=== PATIENT | male | born 1985 | race African-American/Black ===

== ENCOUNTER 2017-02-13 09:44 | Emergency (ER) | payer BC, OTHER ==
[2017-02-13 09:50] VITALS: BP 121/80; PULSE 82; TEMP 98; BMI 30.7
[2017-02-13] MEDS ORDERED: FLUORESCEIN NA 1 EA STRIP OU ONE (11:01)
[2017-02-13] MEDS ORDERED: TETRACAINE 0.5% HCL 0.6ML DROPPER.BOTTLE OU ONE (11:01)
[2017-02-13] MEDS ORDERED: TETRACAINE 0.5% OPHTH SOLN 2 ML BOTTLE ONE (11:02)
--- NOTE | 2017-02-13 11:09 | PDOC ---
History of Present Illness - General Chief Complaint: Eye Problem Stated Complaint: EYE PROBLEM Time Seen by Provider: 02/13/17 10:36 History Source: Patient Exam Limitations: No Limitations - History of Present Illness Initial Comments: 02/13/17 11:07 CHIEF COMPLAINT: Bilateral eye pain, and drainage this am. HISTORY OF PRESENT ILLNESS: Patient is a 31-year-old male with chronic dry eye, denies any other significant medical history presents with bilateral eye pain this a.m., photophobia, drainage. Patient reports has been under the care of his artificial plastic eye maker starting 2 weeks ago, was put on tobramycin ophthalmic and he thought his symptoms were resolving on Friday he saw the artificial plastic eye maker again who said he had dry eye and put him on another eyedrop over the counter for dry eye. Stated yesterday, woke up with pain, redness and drainage today. REVIEW OF SYSTEMS: GENERAL/CONSTITUTIONAL: No fever or chills. No weakness. No weight change. HEAD, EYES, EARS, NOSE AND THROAT: Blurred vision. Erythema, pain to bilateral eyes. No ear pain or discharge. No sore throat. RESPIRATORY: No cough, wheezing, or hemoptysis. SKIN : No rash or easy bruising. NEUROLOGIC: No headache, vertigo, loss of consciousness, or loss of sensation. HEMATOLOGIC/LYMPHATIC: No lymphadenopathy ALLERGIC/IMMUNOLOGIC: No hives or skin allergy. No latex allergy. PHYSICAL EXAM: GENERAL: The patient is awake, alert, and fully oriented, in no acute distress. HEAD: Normal with no signs of trauma. EYES: Pupils equal, round and reactive to light, extraocular movements intact, sclera anicteric, conjunctiva injected bilaterally, extending to limbus after fluorescein staining, no corneal abrasion noted. ENT: Ears normal, nares patent, oropharynx clear without exudates. Moist mucous membranes. NECK: Normal range of motion, supple without lymphadenopathy, JVD, or masses. LUNGS: Breath sounds equal, clear to auscultation bilaterally. No wheezes, and no crackles. NEUROLOGICAL: Cranial nerves II through XII grossly intact. Normal speech, normal gait. SKIN: No erythema no facial edema. Warm, Dry, normal turgor, no rashes or lesions noted. 02/13/17 11:44 Past History - Past Medical History Allergies/Adverse Reactions: Allergies Allergy/AdvReac Type Severity Reaction Status Date / Time shrimp Allergy Uncoded 02/13/17 09:46 Home Medications: Ambulatory Orders Olopatadine HCl [Pataday] 1 drop OU DAILY #1 drops 02/13/17 COPD: No - Suicide/Smoking/Psychosocial Hx Smoking History: Never smoked Have you smoked in the past 12 months: No Information on smoking cessation initiated: No Hx Alcohol Use: Yes (occasionally) Drug/Substance Use Hx: No Substance Use Type: Alcohol *Physical Exam - Vital Signs Last Vital Signs Temp Pulse Resp BP Pulse Ox 98.0 F 82 18 121/80 100 02/13/17 09:47 02/13/17 09:47 02/13/17 09:47 02/13/17 09:47 02/13/17 09:47 Medical Decision Making - Medical Decision Making 02/13/17 11:45 A/P: Patient with erythema, pain to bilateral eyes mostly clear to, allergic reaction to eye drops that was prescribed on Friday. Patient with no evidence of injury to eye, no corneal abrasion. I have attempted to call patient's artificial plastic eye maker, no return call back, I will discharge patient on strict follow-up with ophthalmology tomorrow. *DC/Admit/Observation/Transfer Diagnosis at time of Disposition: Allergic eye reaction - Discharge Dispostion Disposition: HOME Condition at time of disposition: Good Admit: No - Prescriptions Prescriptions: Olopatadine HCl [Pataday] 1 drop OU DAILY #1 drops - Referrals Referrals: Kenny Sarabia MD [Staff Physician] - - Patient Instructions Printed Discharge Instructions: Conjunctivitis Additional Instructions: * Refrain from touching or scratching eye * Please wash hands frequently * Please followup with his primary care doctor in 2 days if symptoms persist * Medication as prescribed * Warm compresses to eye * If increased redness, swelling, pain to the eye please follow up with primary care doctor immediately or return to emergency room - Post Discharge Activity Forms/Work/School Notes: Back to Work
== END 2017-02-13 11:54 | disposition home or self-care (01) ==
LOC: JERFT 09:44
DX: T78.40XA Allergy, unspecified, initial encounter (principal); X58.XXXA Exposure to other specified factors, initial encounter
CPT/HCPCS: 99281-25

== ENCOUNTER 2017-02-13 18:38 | Emergency (ER) | payer BC ==
--- NOTE | 2017-02-13 18:44 | PDOC ---
Rapid Medical Evaluation Time Seen by Provider: 02/13/17 18:39 Medical Evaluation: Allergies Allergy/AdvReac Type Severity Reaction Status Date / Time shrimp Allergy Uncoded 02/13/17 09:46 02/13/17 18:39 The patient presents with a chief complaint of: R and L eye pain. States he was here this morning and only the R eye hurt. Now the L eye hurts as well and he cannot open either eye. States he was unable to get the medication prescribed. I have performed a brief in-person evaluation of this patient; Pertinent physical exam findings Conjunctivitis eyes b/l I have ordered the following: Nothing The patient will proceed to the ED for further evaluation.
[2017-02-13 18:46] VITALS: BP 139/97; PULSE 96; TEMP 98; BMI 30.7
--- NOTE | 2017-02-13 19:26 | PDOC ---
History of Present Illness - General Chief Complaint: Eye Problem Stated Complaint: EYE PAIN Time Seen by Provider: 02/13/17 18:39 History Source: Patient - History of Present Illness Initial Comments: 02/13/17 19:20 31 year old male seen in the ED earlier today diagnosed with allergic conjunctivitis return to the ED for worsening redness as patient is unable to obtain medication prescribed in the pharmacy Past History - Past Medical History Allergies/Adverse Reactions: Allergies Allergy/AdvReac Type Severity Reaction Status Date / Time shrimp Allergy Uncoded 02/13/17 09:46 Home Medications: Ambulatory Orders Olopatadine HCl [Pataday] 1 drop OU DAILY #1 drops 02/13/17 Olopatadine HCl [Patanol] 5 ml OP BID #1 bottle 02/13/17 COPD: No - Suicide/Smoking/Psychosocial Hx Smoking History: Never smoked Have you smoked in the past 12 months: No Information on smoking cessation initiated: No Hx Alcohol Use: Yes (occasionally) Drug/Substance Use Hx: No Substance Use Type: Alcohol *Physical Exam - Vital Signs Last Vital Signs Temp Pulse Resp BP Pulse Ox 98.0 F 96 H 18 139/97 100 02/13/17 18:40 02/13/17 18:40 02/13/17 18:40 02/13/17 18:40 02/13/17 18:40 *DC/Admit/Observation/Transfer Diagnosis at time of Disposition: Allergic eye reaction - Discharge Dispostion Disposition: HOME - Prescriptions Prescriptions: Olopatadine HCl [Pataday] 1 drop OU DAILY #1 drops Olopatadine HCl [Patanol] 5 ml OP BID #1 bottle - Referrals - Patient Instructions Printed Discharge Instructions: DI for Eye Allergic Reaction Additional Instructions: follow up with your eye doctor take eye drops as prescribed. - Post Discharge Activity
== END 2017-02-13 19:46 | disposition home or self-care (01) ==
LOC: JERFT 18:38
DX: T78.49XA Other allergy, initial encounter (principal)
CPT/HCPCS: 99281-25

== ENCOUNTER 2021-07-15 19:00 | Emergency (ER) | payer BC ==
[2021-07-15 19:37] VITALS: BMI 30.9
[2021-07-15] MEDS ORDERED: amLODIPine BESYLATE 10 MG TABLET (FP) PO ONE (21:57)
[2021-07-15] MEDS ORDERED: amLODIPine BESYLATE 10 MG TABLET (FP) ONE (22:00)
[2021-07-16 01:11] VITALS: BP 162/100; PULSE 95; TEMP 98.1
== END 2021-07-16 01:11 | disposition home or self-care (01) ==
LOC: JER 19:00
DX: I10 Essential (primary) hypertension (principal)
CPT/HCPCS: 93005; 93010; 99284-25

== ENCOUNTER 2021-11-01 14:05 | Inpatient (IN) | payer BC ==
[2021-11-01 14:17] VITALS: BMI 30.7
[2021-11-01] MEDS ORDERED: MAG HYDROX/AL HYDROX/SIMETH 30 ML UNIT-DOSE CUP PO ONE (15:05)
[2021-11-01] MEDS ORDERED: FAMOTIDINE 20 MG/50 ML IVPB 20 MG/50 ML MG IVPB ONE ×2 (15:05→15:58)
[2021-11-01] MEDS ORDERED: ONDANSETRON 4 MG/2 ML VIAL IVPUSH ONE (15:05)
[2021-11-01] MEDS ORDERED: ACETAMINOPHEN 1000 MG/100 ML BAG IVPB ONE (15:05)
[2021-11-01] MEDS ORDERED: SODIUM CHLORIDE 1,000 ML IV STA (15:05)
[2021-11-01] MEDS ORDERED: MAG HYDROX/AL HYDROX/SIMETH 30 ML UNIT-DOSE CUP ONE ×2 (15:51→17:14)
[2021-11-01] MEDS ORDERED: ACETAMINOPHEN INJECTION 100 ML IVPB ONE (15:58)
[2021-11-01] MEDS ORDERED: ONDANSETRON 4 MG/2 ML VIAL ONE (15:58)
[2021-11-01 16:12] LABS: EPI CELLS 6 /uL (0-25.1); HYALINE CASTS 2 /uL (0-3.1); PH,URINE 5.5 (5.0-8.0); URINE APPEARANCE CLEAR; URINE BACTERIA 6 /uL (0-1359); URINE BILIRUBIN NEGATIVE (NEGATIVE); URINE COLOR DK YELLOW; URINE GLUCOSE (UA) NEGATIVE (NEGATIVE); URINE KETONE 2+ (NEGATIVE); URINE LEUK ESTERASE NEGATIVE (NEGATIVE); URINE NITRITE NEGATIVE (NEGATIVE); URINE PROTEIN 1+ (NEGATIVE); URINE UROBILINOGEN 0.2 mg/dL (0.2-1.0); URINE WBC 5 /uL (0-25.8)
[2021-11-01 16:13] LABS: BASO % 0.3 % (0-2.0); EOS % 0.3 % (0-4.5); HEMATOCRIT 42.6 % (35.4-49); HEMOGLOBIN 14.7 GM/dL (11.7-16.9); LYMPH % 23.3 % (8-40); MCH 33.2 pg (25.7-33.7); MCHC 34.6 g/dl (32.0-35.9); MEAN CELL VOLUME 95.7 fl (80-96); MEAN PLT VOLUME 8.8 fl (7.5-11.1); MONO % 10.1 % (3.8-10.2); PLATELET COUNT 296 10^3/uL (134-434); RBC 4.45 M/mm3 (4.00-5.60); RDW 14.3 % (11.9-15.9); WHITE BLOOD COUNT 6.8 K/mm3 (4.0-10.0)
[2021-11-01 16:29] LABS: CALCIUM 9.6 mg/dL (8.5-10.1)
[2021-11-01 16:30] LABS: ALBUMIN 4.2 g/dl (3.4-5.0); BLOOD UREA NITROGEN 10.8 mg/dL (7-18)
[2021-11-01 16:34] LABS: URINE RBC 33.6 /uL (0-23.9)
[2021-11-01 16:34] LABS: TOT PROT 8.5 g/dl (6.4-8.2)
[2021-11-01 16:35] LABS: INR 1.09 (0.83-1.09); PROTHROMBIN TIME (PATIENT) 12.5 SEC (9.7-13.0)
[2021-11-01 16:35] LABS: BILIRUBIN,TOTAL 0.9 mg/dL (0.2-1)
[2021-11-01] MEDS ORDERED: morphine CARPU-JECT 4 MG/1 ML DISP.SYRIN IVPUSH ONE (21:15)
[2021-11-01] MEDS ORDERED: LACTATED RINGERS SOLUTION 1000 ML INFUS.BAG IV ONE (21:15)
[2021-11-01] MEDS ORDERED: morphine SULFATE 4 MG/ML VIAL ONE (21:26)
[2021-11-01] MEDS ORDERED: ONDANSETRON 4 MG/2 ML VIAL IVPUSH PRN (23:24)
[2021-11-02] MEDS ORDERED: LABETALOL HCL 5 MG/1 ML (100MG/20 ML VIAL) IVPUSH ONE ×2 (00:11→01:03)
[2021-11-02] MEDS ORDERED: LABETALOL HCL 5 MG/1 ML (100MG/20 ML VIAL) ONE (00:18)
[2021-11-02] MEDS ORDERED: ACETAMINOPHEN 1000 MG/100 ML BAG IVPB PRN (00:21)
[2021-11-02 00:28] LABS: METHADONE, UR NEGATIVE (NEGATIVE); PHENCYCLIDINE,URINE NEGATIVE (NEGATIVE); URINE BARBITURATES NEGATIVE (NEGATIVE); URINE BENZODIAZEPINES NEGATIVE (NEGATIVE)
[2021-11-02 00:29] LABS: COCAINE, UR NEGATIVE (NEGATIVE)
[2021-11-02 00:43] LABS: OPIATES, URI POSITIVE (NEGATIVE); URINE AMPHETAMINES NEGATIVE (NEGATIVE)
[2021-11-02] MEDS: LACTATED RINGERS SOLUTION 1,000 ML/1,000 ML INFUS.BAG IV SCH (01:54)
[2021-11-02] MEDS ORDERED: morphine SULFATE 4 MG/ML VIAL IVPUSH PRN (02:00)
[2021-11-02] MEDS ORDERED: hydrALAZINE HCL 20 MG/ML VIAL IVPUSH ONE ×2 (02:27→23:14)
[2021-11-02] MEDS ORDERED: hydrALAZINE HCL 20 MG/ML VIAL ONE (02:30)
[2021-11-02 07:30] LABS: BASO % 0.4 % (0-2.0); EOS % 0.3 % (0-4.5); HEMATOCRIT 38.1 % (35.4-49); HEMOGLOBIN 13.3 GM/dL (11.7-16.9); LYMPH % 19.8 % (8-40); MCH 33.1 pg (25.7-33.7); MCHC 34.9 g/dl (32.0-35.9); MEAN PLT VOLUME 9.2 fl (7.5-11.1); MONO % 8.7 % (3.8-10.2); NEUT % 70.8 % (42.8-82.8); PLATELET COUNT 286 10^3/uL (134-434); RBC 4.02 M/mm3 (4.00-5.60); RDW 14.1 % (11.9-15.9); WHITE BLOOD COUNT 7.6 K/mm3 (4.0-10.0)
[2021-11-02 08:24] LABS: CALCIUM 9.2 mg/dL (8.5-10.1)
[2021-11-02 08:25] LABS: ALBUMIN 3.4 g/dl (3.4-5.0); BLOOD UREA NITROGEN 5.2 mg/dL (7-18)
[2021-11-02 08:28] LABS: CREATININE 0.7 mg/dL (0.55-1.3)
[2021-11-02 08:29] LABS: TOT PROT 7.2 g/dl (6.4-8.2)
[2021-11-02 08:30] LABS: BILIRUBIN,TOTAL 1.8 mg/dL (0.2-1)
[2021-11-02] MEDS: HEPARIN NA (PORCINE) 5,000 UNITS/ML 1ML VIAL SQ SCH ×2 (09:08→22:32)
[2021-11-02] MEDS: amLODIPine BESYLATE 10 MG TABLET (FP) PO SCH (09:09)
[2021-11-03] MEDS: LACTATED RINGERS SOLUTION 1,000 ML/1,000 ML INFUS.BAG IV SCH (01:00)
[2021-11-03 07:31] LABS: BASO % 0.2 % (0-2.0); EOS % 1.3 % (0-4.5); HEMATOCRIT 37.1 % (35.4-49); LYMPH % 37.4 % (8-40); MCH 33.4 pg (25.7-33.7); MCHC 35.1 g/dl (32.0-35.9); MEAN CELL VOLUME 95.2 fl (80-96); MONO % 13.1 % (3.8-10.2); PLATELET COUNT 274 10^3/uL (134-434); RDW 14.3 % (11.9-15.9); WHITE BLOOD COUNT 4.3 K/mm3 (4.0-10.0)
[2021-11-03 07:44] LABS: CHLORIDE 103 mmol/L (98-107); SODIUM 140 mmol/L (136-145)
[2021-11-03 07:51] LABS: ALBUMIN 2.9 g/dl (3.4-5.0); ANION GAP 8 MMOL/L (8-16); CALCIUM 9.2 mg/dL (8.5-10.1); CO2 30 mmol/L (21-32); GLUCOSE,RANDOM 114 mg/dL (74-106); LIPASE 891 U/L (73-393)
[2021-11-03 07:54] LABS: ALK PHOS 64 U/L (45-117); CREATININE 0.7 mg/dL (0.55-1.3); SGOT/AST 72 U/L (15-37); SGPT/ALT 51 U/L (13-61)
[2021-11-03 07:56] LABS: TOT PROT 6.4 g/dl (6.4-8.2)
[2021-11-03 07:58] LABS: BLOOD UREA NITROGEN 2.8 mg/dL (7-18)
[2021-11-03] MEDS: HEPARIN NA (PORCINE) 5,000 UNITS/ML 1ML VIAL SQ SCH ×2 (09:43→21:21)
[2021-11-03] MEDS: METOPROLOL TARTRATE 25 MG TABLET (FP) PO SCH ×2 (09:43→21:21)
[2021-11-03] MEDS: amLODIPine BESYLATE 10 MG TABLET (FP) PO SCH (09:43)
[2021-11-03] MEDS: morphine SULFATE 4 MG/ML VIAL IVPUSH PRN (11:27)
[2021-11-04] MEDS: morphine SULFATE 4 MG/ML VIAL IVPUSH PRN (01:24)
[2021-11-04] MEDS: LACTATED RINGERS SOLUTION 1,000 ML/1,000 ML INFUS.BAG IV SCH ×3 (01:24→15:28)
[2021-11-04] MEDS: HEPARIN NA (PORCINE) 5,000 UNITS/ML 1ML VIAL SQ SCH ×2 (09:19→21:04)
[2021-11-04] MEDS: METOPROLOL TARTRATE 50 MG TABLET (FP) PO SCH ×2 (09:20→21:04)
[2021-11-04] MEDS: amLODIPine BESYLATE 10 MG TABLET (FP) PO SCH (09:20)
[2021-11-05] MEDS: amLODIPine BESYLATE 10 MG TABLET (FP) PO SCH (09:33)
[2021-11-05] MEDS: METOPROLOL TARTRATE 50 MG TABLET (FP) PO SCH ×2 (09:33→21:12)
[2021-11-05] MEDS: HEPARIN NA (PORCINE) 5,000 UNITS/ML 1ML VIAL SQ SCH ×2 (09:34→21:12)
[2021-11-06 08:23] LABS: BASO % 0.5 % (0-2.0); EOS % 1.6 % (0-4.5); HEMATOCRIT 37.9 % (35.4-49); HEMOGLOBIN 12.9 GM/dL (11.7-16.9); LYMPH % 36.9 % (8-40); MCH 32.4 pg (25.7-33.7); MCHC 34.2 g/dl (32.0-35.9); MEAN CELL VOLUME 94.8 fl (80-96); MEAN PLT VOLUME 9.2 fl (7.5-11.1); MONO % 9.4 % (3.8-10.2); NEUT % 51.6 % (42.8-82.8); PLATELET COUNT 353 10^3/uL (134-434); RBC 3.99 M/mm3 (4.00-5.60); RDW 13.7 % (11.9-15.9); WHITE BLOOD COUNT 4.2 K/mm3 (4.0-10.0)
[2021-11-06 08:33] LABS: CALCIUM 9.3 mg/dL (8.5-10.1)
[2021-11-06 08:34] LABS: ALBUMIN 3.2 g/dl (3.4-5.0)
[2021-11-06 08:37] LABS: CREATININE 0.9 mg/dL (0.55-1.3)
[2021-11-06 08:38] LABS: BILIRUBIN,TOTAL 0.7 mg/dL (0.2-1); TOT PROT 7.2 g/dl (6.4-8.2)
[2021-11-06] MEDS: amLODIPine BESYLATE 10 MG TABLET (FP) PO SCH (09:27)
[2021-11-06] MEDS: HEPARIN NA (PORCINE) 5,000 UNITS/ML 1ML VIAL SQ SCH ×2 (09:27→21:56)
[2021-11-06] MEDS: METOPROLOL TARTRATE 50 MG TABLET (FP) PO SCH ×2 (09:27→21:56)
[2021-11-06] MEDS: HYDROCHLOROTHIAZIDE 25 MG TABLET (FP) PO SCH (11:11)
[2021-11-06 22:52] VITALS: TEMP 98.1
[2021-11-07 06:06] VITALS: RESP 20
[2021-11-07 07:13] LABS: ALBUMIN 3.3 g/dl (3.4-5.0); BLOOD UREA NITROGEN 10.5 mg/dL (7-18); CALCIUM 9.9 mg/dL (8.5-10.1)
[2021-11-07 07:15] LABS: ALBUMIN 3.3 g/dl (3.4-5.0)
[2021-11-07 07:17] LABS: BILIRUBIN,TOTAL 0.7 mg/dL (0.2-1); TOT PROT 7.1 g/dl (6.4-8.2)
[2021-11-07 07:20] LABS: BILIRUBIN,TOTAL 0.7 mg/dL (0.2-1)
[2021-11-07 07:42] LABS: BILIRUBIN,DIRECT 0.3 mg/dL (0.0-0.2)
[2021-11-07] MEDS ORDERED: NIFEdipine E.R. 90 MG TABLET PO SCH (10:30)
[2021-11-07] MEDS: amLODIPine BESYLATE 10 MG TABLET (FP) PO SCH (11:20)
[2021-11-07] MEDS: METOPROLOL TARTRATE 50 MG TABLET (FP) PO SCH (11:25)
[2021-11-07] MEDS: HEPARIN NA (PORCINE) 5,000 UNITS/ML 1ML VIAL SQ SCH (11:25)
[2021-11-07] MEDS: HYDROCHLOROTHIAZIDE 25 MG TABLET (FP) PO SCH (11:25)
[2021-11-07 14:17] VITALS: BP 124/83; PULSE 70
[2021-11-08 19:06] LABS: GLIADIN ANTIBODY IGA 5 units (0-19); GLIADIN ANTIBODY IGG 2 units (0-19); TRANSGLUTAMINASE IGG < 2 U/mL (0-5)
== END 2021-11-07 18:55 | disposition home or self-care (01) | DRG 439 ==
LOC: JER 14:05 → JERBED 22:49 → J2W 11-02 01:46
PROVIDERS: ADMIT Internal Medicine; ATTEND Internal Medicine
DX: K85.20 Alcohol induced acute pancreatitis without necrosis or infection (principal); I16.1 Hypertensive emergency; E66.9 Obesity, unspecified; Z68.30 Body mass index [BMI] 30.0-30.9, adult; K76.0 Fatty (change of) liver, not elsewhere classified; R63.4 Abnormal weight loss; Z91.14 Patient's other noncompliance with medication regimen
CPT/HCPCS: 36415; 71046-TC-FY; 74177-TC; 74182-TC; 76705-TC; 80053; 80076; 80307; 81003; 82150; 82465; 82728; 82784; 83516; 83540; 83550; 83690; 84478; 85025; 85610; 86038; 86140; 86301; 86705; 86708; 86803; 87086; 87340; 87491; 87517; 87591; 93005; 93010; 93306-TC; 99285-25; A9579; C9803-CS; J1644; U0003; U0005

== ENCOUNTER 2022-02-10 02:30 | Inpatient (IN) | payer BC ==
[2022-02-10 02:41] VITALS: BMI 29.3
[2022-02-10] MEDS ORDERED: SODIUM CHLORIDE 0.9% 500 ML INFUS.BAG IV ONE (03:09)
[2022-02-10] MEDS ORDERED: chlordiazePOXIDE HCL 25 MG CAPSULE PO ONE (03:09)
[2022-02-10] MEDS ORDERED: ONDANSETRON 4 MG/2 ML VIAL IVPUSH ONE (03:10)
[2022-02-10] MEDS ORDERED: MAG HYDROX/AL HYDROX/SIMETH -MYLANTA- ORAL SUSPENSION PO ONE (03:10)
[2022-02-10] MEDS ORDERED: FAMOTIDINE 20 MG/50 ML IVPB 20 MG/50 ML MG IVPB ONE ×2 (03:10→03:21)
[2022-02-10] MEDS ORDERED: SUCRALFATE 1 GM TABLET (FP) PO ONE (03:10)
[2022-02-10] MEDS ORDERED: MAG HYDROX/AL HYDROX/SIMETH 30 ML UNIT-DOSE CUP ONE ×2 (03:20→07:36)
[2022-02-10] MEDS ORDERED: ONDANSETRON 4 MG/2 ML VIAL ONE ×2 (03:21→07:37)
[2022-02-10] MEDS ORDERED: SUCRALFATE 1 GM TABLET (FP) ONE (03:23)
[2022-02-10] MEDS ORDERED: chlordiazePOXIDE HCL 25 MG CAPSULE ONE (03:23)
[2022-02-10 03:40] LABS: INR 0.96 (0.83-1.09)
[2022-02-10 03:43] LABS: ACTIVATED PTT 33.4 SECONDS (25.2-36.5)
[2022-02-10 03:54] LABS: ALBUMIN 4.5 g/dl (3.4-5.0); BLOOD UREA NITROGEN 11.3 mg/dL (7-18); CALCIUM 10.3 mg/dL (8.5-10.1)
[2022-02-10 03:58] LABS: BILIRUBIN,TOTAL 1.1 mg/dL (0.2-1); TOT PROT 8.6 g/dl (6.4-8.2)
[2022-02-10] MEDS ORDERED: THIAMINE HCL 200 MG/2 ML VIAL IVPB ONE (04:10)
[2022-02-10] MEDS ORDERED: LACTATED RINGERS SOLUTION 1000 ML INFUS.BAG IV ONE (04:14)
[2022-02-10] MEDS ORDERED: THIAMINE HCL 200 MG/2 ML VIAL ONE (04:34)
[2022-02-10 04:50] LABS: VENOUS BASE EXCESS -5.6 mmol/L (-2-2); VENOUS O2 SATURATION 56.4 % (70-80); VENOUS PCO2 37.4 mmHg (38-52); VENOUS PH 7.336 (7.310-7.410)
[2022-02-10 05:01] LABS: BASO % 0.2 % (0-2.0); EOS % 0.1 % (0-4.5); HEMATOCRIT 42.4 % (35.4-49); HEMOGLOBIN 14.3 GM/dL (11.7-16.9); LYMPH % 35.4 % (8-40); MCH 31.6 pg (25.7-33.7); MCHC 33.8 g/dl (32.0-35.9); MEAN CELL VOLUME 93.5 fl (80-96); MEAN PLT VOLUME 10.5 fl (7.5-11.1); MONO % 6.3 % (3.8-10.2); PLATELET COUNT 201 10^3/uL (134-434); RBC 4.53 M/mm3 (4.00-5.60); RDW 15.3 % (11.9-15.9)
[2022-02-10] MEDS ORDERED: DOCUSATE SODIUM 100 MG CAPSULE (FP) PO PRN (06:32)
[2022-02-10] MEDS ORDERED: MAG HYDROX/AL HYDROX/SIMETH 30 ML UNIT-DOSE CUP PO PRN (06:42)
[2022-02-10] MEDS: SODIUM CHLORIDE 1,000 ML IV SCH (06:44)
[2022-02-10] MEDS ORDERED: ONDANSETRON 4 MG/2 ML VIAL IVPUSH PRN (06:47)
[2022-02-10 07:07] LABS: MAGNESIUM 1.7 mg/dL (1.8-2.4)
[2022-02-10 07:11] LABS: PHOSPHOROUS 3.3 mg/dL (2.5-4.9)
[2022-02-10] MEDS ORDERED: THIAMINE HCL 100 MG TABLET (FP) ONE (09:27)
[2022-02-10] MEDS ORDERED: FOLIC ACID 1 MG TABLET (FP) ONE (09:27)
[2022-02-10] MEDS ORDERED: MULTIVITAMINS (DAILY MVI) TABLET (FP) ONE (09:28)
[2022-02-10] MEDS: FOLIC ACID 1 MG TABLET (FP) PO SCH (09:31)
[2022-02-10] MEDS: MULTIVITAMINS (DAILY MVI) TABLET (FP) PO SCH (09:32)
[2022-02-10] MEDS: THIAMINE HCL 100 MG TABLET (FP) PO SCH (09:32)
[2022-02-10] MEDS ORDERED: FOLIC ACID INJECTION - 1 MG, THIAMINE HCL 100 MG, MULTIVIT INJECTION ADULT 10 ML in SOD... IVPB ONE (09:37)
[2022-02-10] MEDS ORDERED: METOPROLOL TARTRATE 50 MG TABLET (FP) ONE (09:47)
[2022-02-10] MEDS ORDERED: NIFEdipine E.R. 30 MG TABLET ONE (09:47)
[2022-02-10] MEDS ORDERED: NIFEdipine E.R 60 MG TABLET ONE (09:48)
[2022-02-10] MEDS: NIFEdipine E.R. 90 MG TABLET PO SCH (09:49)
[2022-02-10] MEDS: METOPROLOL TARTRATE 50 MG TABLET (FP) PO SCH ×2 (09:49→22:05)
[2022-02-10] MEDS ORDERED: LORazepam 1 MG TABLET ONE (10:32)
[2022-02-10] MEDS: LORazepam 1 MG TABLET PO SCH ×3 (10:34→23:00)
[2022-02-10] MEDS: HEPARIN NA (PORCINE) 5,000 UNITS/ML 1ML VIAL SQ SCH ×2 (14:18→22:05)
[2022-02-10] MEDS: LORazepam 1 MG TABLET PO PRN (14:18)
[2022-02-11] MEDS: LORazepam 1 MG TABLET PO PRN ×3 (03:43→20:00)
[2022-02-11] MEDS: LORazepam 1 MG TABLET PO SCH ×4 (05:05→22:29)
[2022-02-11] MEDS: HEPARIN NA (PORCINE) 5,000 UNITS/ML 1ML VIAL SQ SCH ×3 (06:04→22:27)
[2022-02-11] MEDS: METOPROLOL TARTRATE 50 MG TABLET (FP) PO SCH ×2 (09:43→22:27)
[2022-02-11] MEDS: THIAMINE HCL 100 MG TABLET (FP) PO SCH (09:43)
[2022-02-11] MEDS: MULTIVITAMINS (DAILY MVI) TABLET (FP) PO SCH (09:43)
[2022-02-11] MEDS: NIFEdipine E.R. 90 MG TABLET PO SCH (09:43)
[2022-02-11] MEDS: SODIUM CHLORIDE 1,000 ML IV SCH (09:44)
[2022-02-11] MEDS: FOLIC ACID 1 MG TABLET (FP) PO SCH (09:49)
[2022-02-11 10:01] LABS: BASO % 0.2 % (0-2.0); EOS % 0.4 % (0-4.5); HEMATOCRIT 39.8 % (35.4-49); HEMOGLOBIN 13.5 GM/dL (11.7-16.9); LYMPH % 16.1 % (8-40); MCH 31.7 pg (25.7-33.7); MCHC 33.9 g/dl (32.0-35.9); MEAN CELL VOLUME 93.4 fl (80-96); MONO % 6.5 % (3.8-10.2); NEUT % 76.8 % (42.8-82.8); PLATELET COUNT 182 10^3/uL (134-434); RBC 4.26 M/mm3 (4.00-5.60); RDW 15.2 % (11.9-15.9); WHITE BLOOD COUNT 6.2 K/mm3 (4.0-10.0)
[2022-02-11 10:44] LABS: CALCIUM 9.9 mg/dL (8.5-10.1)
[2022-02-11 10:45] LABS: BLOOD UREA NITROGEN 3.6 mg/dL (7-18)
[2022-02-11 10:47] LABS: CREATININE 0.9 mg/dL (0.55-1.3)
[2022-02-11 10:50] LABS: TOT PROT 7.8 g/dl (6.4-8.2)
[2022-02-11] MEDS ORDERED: SODIUM CHLORIDE 1,000 ML IV SCH (14:45)
[2022-02-12] MEDS: LORazepam 1 MG TABLET PO PRN (03:51)
[2022-02-12 05:10] VITALS: RESP 18
[2022-02-12] MEDS: LORazepam 1 MG TABLET PO SCH ×4 (06:08→23:19)
[2022-02-12] MEDS: HEPARIN NA (PORCINE) 5,000 UNITS/ML 1ML VIAL SQ SCH ×3 (06:10→21:18)
[2022-02-12 08:46] LABS: HEMATOCRIT 37.9 % (35.4-49); HEMOGLOBIN 12.9 GM/dL (11.7-16.9); MCH 31.8 pg (25.7-33.7); MCHC 33.9 g/dl (32.0-35.9); MEAN CELL VOLUME 93.7 fl (80-96); MEAN PLT VOLUME 10.4 fl (7.5-11.1); PLATELET COUNT 167 10^3/uL (134-434); RBC 4.04 M/mm3 (4.00-5.60); RDW 15.1 % (11.9-15.9); WHITE BLOOD COUNT 7.2 K/mm3 (4.0-10.0)
[2022-02-12 09:05] LABS: CALCIUM 9.5 mg/dL (8.5-10.1)
[2022-02-12 09:06] LABS: ALBUMIN 3.6 g/dl (3.4-5.0); BLOOD UREA NITROGEN 3.6 mg/dL (7-18)
[2022-02-12 09:09] LABS: CREATININE 0.8 mg/dL (0.55-1.3)
[2022-02-12 09:10] LABS: BILIRUBIN,TOTAL 1.2 mg/dL (0.2-1); TOT PROT 7.6 g/dl (6.4-8.2)
[2022-02-12] MEDS ORDERED: PANTOPRAZOLE SODIUM 40 MG in SODIUM CHLORIDE 100 ML IVPUSH SCH (10:00)
[2022-02-12] MEDS: METOPROLOL TARTRATE 50 MG TABLET (FP) PO SCH ×2 (10:02→21:17)
[2022-02-12] MEDS: PANTOPRAZOLE SODIUM 40 MG VIAL IVPUSH SCH (10:02)
[2022-02-12] MEDS: NIFEdipine E.R. 90 MG TABLET PO SCH (10:02)
[2022-02-12] MEDS: MULTIVITAMINS (DAILY MVI) TABLET (FP) PO SCH (10:02)
[2022-02-12] MEDS: FOLIC ACID 1 MG TABLET (FP) PO SCH (10:03)
[2022-02-12] MEDS: THIAMINE HCL 100 MG TABLET (FP) PO SCH (10:03)
[2022-02-12] MEDS ORDERED: POTASSIUM CHLORIDE ORAL LIQUID 20 MEQ/15 ML PO ONE (15:00)
[2022-02-13] MEDS ORDERED: LORazepam 0.5 MG TABLET PO PRN
[2022-02-13] MEDS: HEPARIN NA (PORCINE) 5,000 UNITS/ML 1ML VIAL SQ SCH ×2 (05:43→13:22)
[2022-02-13] MEDS: LORazepam 0.5 MG TABLET PO SCH ×3 (05:44→16:45)
[2022-02-13] MEDS: LIPASE/PROTEASE/AMYLASE 36,000 UNIT CAPSULE PO SCH ×3 (08:10→16:48)
[2022-02-13] MEDS: METOPROLOL TARTRATE 50 MG TABLET (FP) PO SCH (09:27)
[2022-02-13] MEDS: THIAMINE HCL 100 MG TABLET (FP) PO SCH (09:27)
[2022-02-13] MEDS: MULTIVITAMINS (DAILY MVI) TABLET (FP) PO SCH (09:27)
[2022-02-13] MEDS: NIFEdipine E.R. 90 MG TABLET PO SCH (09:27)
[2022-02-13] MEDS: FOLIC ACID 1 MG TABLET (FP) PO SCH (09:27)
[2022-02-13] MEDS: PANTOPRAZOLE SODIUM 40 MG VIAL IVPUSH SCH (09:28)
[2022-02-13 10:41] LABS: BASO % 0.3 % (0-2.0); HEMATOCRIT 36.9 % (35.4-49); HEMOGLOBIN 12.5 GM/dL (11.7-16.9); LYMPH % 35.8 % (8-40); MCH 31.6 pg (25.7-33.7); MCHC 33.8 g/dl (32.0-35.9); MEAN CELL VOLUME 93.5 fl (80-96); MEAN PLT VOLUME 9.8 fl (7.5-11.1); MONO % 11.1 % (3.8-10.2); NEUT % 50.8 % (42.8-82.8); PLATELET COUNT 178 10^3/uL (134-434); RBC 3.95 M/mm3 (4.00-5.60); WHITE BLOOD COUNT 4.1 K/mm3 (4.0-10.0)
[2022-02-13 11:00] LABS: ALBUMIN 3.5 g/dl (3.4-5.0); CALCIUM 9.6 mg/dL (8.5-10.1)
[2022-02-13 11:01] LABS: BLOOD UREA NITROGEN 6.5 mg/dL (7-18)
[2022-02-13 11:04] LABS: BILIRUBIN,TOTAL 0.9 mg/dL (0.2-1); TOT PROT 7.4 g/dl (6.4-8.2)
[2022-02-13 14:48] VITALS: BP 109/65; PULSE 85; TEMP 98.1
[2022-02-14] MEDS ORDERED: LORazepam 0.5 MG TABLET PO ONE (05:00)
== END 2022-02-13 18:00 | disposition home or self-care (01) | DRG 439 ==
LOC: JER 02:30 → JERBED 05:36 → OBSVTOIN 06:18 → J8W 10:45 → J6S 20:31
PROVIDERS: ADMIT Internal Medicine; ATTEND Internal Medicine
PROC: HZ2ZZZZ Detoxification Services for Substance Abuse Treatment (ICD-10-PCS; principal; 2022-02-10)
DX: K85.20 Alcohol induced acute pancreatitis without necrosis or infection (principal); F10.239 Alcohol dependence with withdrawal, unspecified; R11.11 Vomiting without nausea; I10 Essential (primary) hypertension; R10.13 Epigastric pain; R79.89 Other specified abnormal findings of blood chemistry
CPT/HCPCS: 0241U-QW; 36415; 71046-TC-FY; 74150-TC; 80053; 82103; 82803; 83516; 83690; 83735; 84100; 85025; 85027; 85610; 85730; 86038; 93005; 93010; 99285-25; G0378; J1644

== ENCOUNTER 2022-03-23 13:02 | Inpatient (IN) | payer BC ==
[2022-03-23 13:14] VITALS: BMI 29.0
[2022-03-23] MEDS ORDERED: SODIUM CHLORIDE 0.9% 500 ML INFUS.BAG IV ONE ×2 (13:26→15:02)
[2022-03-23] MEDS ORDERED: morphine CARPU-JECT 2 MG/1 ML DISP.SYRIN IVPUSH ONE (13:26)
[2022-03-23] MEDS ORDERED: chlordiazePOXIDE HCL 25 MG CAPSULE PO ONE (13:26)
[2022-03-23] MEDS ORDERED: FAMOTIDINE 20 MG/50 ML IVPB 20 MG/50 ML MG IVPB ONE ×2 (13:27→13:47)
[2022-03-23] MEDS ORDERED: THIAMINE HCL 200 MG/2 ML VIAL IVPB ONE (13:38)
[2022-03-23] MEDS ORDERED: ONDANSETRON 4 MG/2 ML VIAL IVPUSH ONE (13:38)
[2022-03-23] MEDS ORDERED: morphine CARPU-JECT 4 MG/1 ML DISP.SYRIN IVPUSH ONE (13:44)
[2022-03-23] MEDS ORDERED: chlordiazePOXIDE HCL 25 MG CAPSULE ONE ×2 (13:46→16:51)
[2022-03-23] MEDS ORDERED: THIAMINE HCL 200 MG/2 ML VIAL ONE (13:46)
[2022-03-23] MEDS ORDERED: ONDANSETRON 4 MG/2 ML VIAL ONE (13:47)
[2022-03-23] MEDS ORDERED: FOLIC ACID INJECTION - 1 MG, THIAMINE HCL 100 MG, MULTIVIT INJECTION ADULT 10 ML in SOD... IVPB ONE (13:47)
[2022-03-23 14:22] LABS: BASO % 0.2 % (0-2.0); EOS % 0.2 % (0-4.5); HEMATOCRIT 39.7 % (35.4-49); HEMOGLOBIN 13.5 GM/dL (11.7-16.9); LYMPH % 26.4 % (8-40); MCH 32.5 pg (25.7-33.7); MCHC 33.9 g/dl (32.0-35.9); MEAN CELL VOLUME 95.6 fl (80-96); MEAN PLT VOLUME 8.9 fl (7.5-11.1); MONO % 8.3 % (3.8-10.2); NEUT % 64.9 % (42.8-82.8); PLATELET COUNT 198 10^3/uL (134-434); RBC 4.15 M/mm3 (4.00-5.60); RDW 15.5 % (11.9-15.9); WHITE BLOOD COUNT 4.8 K/mm3 (4.0-10.0)
[2022-03-23 14:33] LABS: INR 0.98 (0.83-1.09); PROTHROMBIN TIME (PATIENT) 11.3 SEC (9.7-13.0)
[2022-03-23 14:34] LABS: VENOUS BASE EXCESS -2.7 mmol/L (-2-2); VENOUS O2 SATURATION 74.3 % (70-80); VENOUS PCO2 40.1 mmHg (38-52); VENOUS PH 7.365 (7.310-7.410)
[2022-03-23 14:39] LABS: CALCIUM 9.8 mg/dL (8.5-10.1)
[2022-03-23 14:40] LABS: BLOOD UREA NITROGEN 10.8 mg/dL (7-18); MAGNESIUM 1.8 mg/dL (1.8-2.4)
[2022-03-23 14:42] LABS: ALBUMIN 4.3 g/dl (3.4-5.0)
[2022-03-23 14:43] LABS: CREATININE 1.1 mg/dL (0.55-1.3); PHOSPHOROUS 3.1 mg/dL (2.5-4.9)
[2022-03-23 14:44] LABS: BILIRUBIN,TOTAL 1.2 mg/dL (0.2-1); TOT PROT 8.3 g/dl (6.4-8.2)
[2022-03-23] MEDS ORDERED: chlordiazePOXIDE HCL 25 MG CAPSULE PO PRN (16:25)
[2022-03-23] MEDS: chlordiazePOXIDE HCL 25 MG CAPSULE PO SCH ×2 (16:52→23:06)
[2022-03-23] MEDS: SODIUM CHLORIDE 1,000 ML IV SCH (19:37)
[2022-03-24] MEDS: SODIUM CHLORIDE 1,000 ML IV SCH ×3 (02:15→20:30)
[2022-03-24] MEDS ORDERED: FAMOTIDINE 20 MG/50 ML IVPB 20 MG/50 ML MG IVPB ONE (04:56)
[2022-03-24] MEDS: chlordiazePOXIDE HCL 25 MG CAPSULE PO SCH ×3 (05:12→16:44)
[2022-03-24 09:24] LABS: URINE APPEARANCE CLEAR; URINE COLOR ORANGE; URINE GLUCOSE (UA) NEGATIVE (NEGATIVE)
[2022-03-24 09:28] LABS: URINE BILIRUBIN MODERATE (NEGATIVE); URINE KETONE TRACE (NEGATIVE)
[2022-03-24 09:29] LABS: EPI CELLS 1.2 /uL (0-25.1); PH,URINE 5.5 (5.0-8.0); URINE BACTERIA 1.9 /uL (0-1359); URINE LEUK ESTERASE TRACE (NEGATIVE); URINE NITRITE NEGATIVE (NEGATIVE); URINE PROTEIN 1+ (NEGATIVE); URINE RBC 108.9 /uL (0-23.9); URINE WBC 1.5 /uL (0-25.8)
[2022-03-24] MEDS ORDERED: diazePAM CARPU-JECT 10 MG/2 ML DISP.SYRIN IVPUSH ONE ×2 (09:49→14:26)
[2022-03-24] MEDS ORDERED: THIAMINE HCL 200 MG/2 ML VIAL IVPB SCH (10:00)
[2022-03-24] MEDS ORDERED: HEPARIN NA (PORCINE) 5,000 UNITS/ML 1ML VIAL SQ SCH (10:00)
[2022-03-24] MEDS ORDERED: diazePAM CARPU-JECT 10 MG/2 ML DISP.SYRIN IVPUSH PRN (10:08)
[2022-03-24] MEDS: METOPROLOL TARTRATE 50 MG TABLET (FP) PO SCH ×2 (11:12→21:26)
[2022-03-24] MEDS: LIPASE/PROTEASE/AMYLASE 36,000 UNIT CAPSULE PO SCH ×2 (11:45→18:23)
[2022-03-24 11:54] LABS: INR 0.93 (0.83-1.09); PROTHROMBIN TIME (PATIENT) 10.7 SEC (9.7-13.0)
[2022-03-24 11:57] LABS: ACTIVATED PTT 28.7 SECONDS (25.2-36.5)
[2022-03-24 13:09] LABS: CALCIUM 9.2 mg/dL (8.5-10.1); MAGNESIUM 1.9 mg/dL (1.8-2.4)
[2022-03-24 13:13] LABS: CREATININE 1.1 mg/dL (0.55-1.3)
[2022-03-24] MEDS: LORazepam 2 MG/ML SDV VIAL IVPUSH PRN ×2 (16:00→20:30)
[2022-03-24] MEDS: diazePAM CARPU-JECT 10 MG/2 ML DISP.SYRIN IVPUSH PRN ×2 (18:30→21:40)
[2022-03-24] MEDS ORDERED: chlordiazePOXIDE HCL 25 MG CAPSULE PO PRN (19:05)
[2022-03-24] MEDS: HEPARIN NA (PORCINE) 5,000 UNITS/ML 1ML VIAL SQ SCH (21:26)
[2022-03-24] MEDS ORDERED: chlordiazePOXIDE HCL 25 MG CAPSULE PO SCH (23:00)
[2022-03-25] MEDS: LORazepam 2 MG/ML SDV VIAL IVPUSH PRN ×4 (01:00→17:49)
[2022-03-25] MEDS ORDERED: chlordiazePOXIDE HCL 25 MG CAPSULE PO SCH (05:00)
[2022-03-25] MEDS: chlordiazePOXIDE HCL 25 MG CAPSULE PO SCH ×4 (05:14→23:30)
[2022-03-25 07:47] LABS: BASO % 0.1 % (0-2.0); HEMATOCRIT 41.7 % (35.4-49); HEMOGLOBIN 14.3 GM/dL (11.7-16.9); LYMPH % 6.6 % (8-40); MCH 32.8 pg (25.7-33.7); MCHC 34.3 g/dl (32.0-35.9); MEAN CELL VOLUME 95.5 fl (80-96); MEAN PLT VOLUME 10.2 fl (7.5-11.1); MONO % 8.7 % (3.8-10.2); NEUT % 84.6 % (42.8-82.8); PLATELET COUNT 140 10^3/uL (134-434); RBC 4.37 M/mm3 (4.00-5.60); RDW 15.9 % (11.9-15.9)
[2022-03-25 07:51] LABS: CALCIUM 9.8 mg/dL (8.5-10.1)
[2022-03-25 07:52] LABS: ALBUMIN 3.5 g/dl (3.4-5.0); BLOOD UREA NITROGEN 6.7 mg/dL (7-18); MAGNESIUM 1.8 mg/dL (1.8-2.4)
[2022-03-25 07:55] LABS: CREATININE 0.9 mg/dL (0.55-1.3)
[2022-03-25 07:56] LABS: TOT PROT 7.1 g/dl (6.4-8.2)
[2022-03-25 07:57] LABS: BILIRUBIN,TOTAL 2.4 mg/dL (0.2-1)
[2022-03-25] MEDS: LIPASE/PROTEASE/AMYLASE 36,000 UNIT CAPSULE PO SCH ×3 (08:45→17:20)
[2022-03-25] MEDS ORDERED: RAPID SEQUENCE INTUBATION KIT NR ONE (09:02)
[2022-03-25] MEDS: NIFEdipine E.R. 90 MG TABLET PO SCH (09:12)
[2022-03-25] MEDS: METOPROLOL TARTRATE 50 MG TABLET (FP) PO SCH ×2 (09:12→22:15)
[2022-03-25] MEDS: HYDROCHLOROTHIAZIDE 25 MG TABLET (FP) PO SCH (09:12)
[2022-03-25] MEDS: diazePAM CARPU-JECT 10 MG/2 ML DISP.SYRIN IVPUSH PRN ×3 (09:13→17:49)
[2022-03-25] MEDS: HEPARIN NA (PORCINE) 5,000 UNITS/ML 1ML VIAL SQ SCH ×2 (09:13→22:15)
[2022-03-25] MEDS: THIAMINE HCL 200 MG/2 ML VIAL IVPB SCH (09:14)
[2022-03-25] MEDS ORDERED: ONDANSETRON 4 MG/2 ML VIAL IVPUSH PRN (15:12)
[2022-03-25] MEDS: hydrALAZINE HCL 25 MG TABLET (FP) PO SCH ×2 (17:20→22:15)
[2022-03-25] MEDS: SODIUM CHLORIDE 1,000 ML IV SCH (18:18)
[2022-03-26] MEDS ORDERED: chlordiazePOXIDE HCL 10 MG CAPSULE PO PRN ×2
[2022-03-26] MEDS: LORazepam 2 MG/ML SDV VIAL IVPUSH PRN (02:35)
[2022-03-26] MEDS ORDERED: chlordiazePOXIDE HCL 10 MG CAPSULE PO SCH (05:00)
[2022-03-26] MEDS: chlordiazePOXIDE HCL 10 MG CAPSULE PO SCH ×4 (05:00→22:53)
[2022-03-26] MEDS: hydrALAZINE HCL 25 MG TABLET (FP) PO SCH ×3 (05:01→22:52)
[2022-03-26 08:02] LABS: ALBUMIN 2.9 g/dl (3.4-5.0); CALCIUM 8.6 mg/dL (8.5-10.1); MAGNESIUM 1.6 mg/dL (1.8-2.4)
[2022-03-26 08:03] LABS: BLOOD UREA NITROGEN 8.3 mg/dL (7-18)
[2022-03-26 08:06] LABS: CREATININE 0.8 mg/dL (0.55-1.3)
[2022-03-26 08:07] LABS: BILIRUBIN,TOTAL 1.7 mg/dL (0.2-1); TOT PROT 6.3 g/dl (6.4-8.2)
[2022-03-26] MEDS ORDERED: MAGNESIUM SULF 50% (8.12 MEQ/2 ML-1 GM VIAL) IVPB ONE (09:33)
[2022-03-26] MEDS: LIPASE/PROTEASE/AMYLASE 36,000 UNIT CAPSULE PO SCH ×3 (10:37→16:58)
[2022-03-26] MEDS: NIFEdipine E.R. 90 MG TABLET PO SCH (10:37)
[2022-03-26] MEDS: HEPARIN NA (PORCINE) 5,000 UNITS/ML 1ML VIAL SQ SCH ×2 (10:38→22:53)
[2022-03-26] MEDS: METOPROLOL TARTRATE 50 MG TABLET (FP) PO SCH ×2 (10:38→22:53)
[2022-03-26] MEDS: HYDROCHLOROTHIAZIDE 25 MG TABLET (FP) PO SCH (10:38)
[2022-03-26] MEDS: THIAMINE HCL 200 MG/2 ML VIAL IVPB SCH (10:38)
[2022-03-26] MEDS: KCL 10 MEQ IVPB 10 MEQ/100 ML INFUS.BAG IVPB SCH (10:48)
[2022-03-26] MEDS: SODIUM CHLORIDE 1,000 ML IV SCH (19:15)
[2022-03-27] MEDS ORDERED: chlordiazePOXIDE HCL 10 MG CAPSULE PO SCH (05:00)
[2022-03-27] MEDS: chlordiazePOXIDE HCL 10 MG CAPSULE PO SCH ×2 (05:51→16:57)
[2022-03-27] MEDS: hydrALAZINE HCL 25 MG TABLET (FP) PO SCH ×3 (05:51→21:24)
[2022-03-27] MEDS: LIPASE/PROTEASE/AMYLASE 36,000 UNIT CAPSULE PO SCH ×3 (08:00→18:17)
[2022-03-27] MEDS: HYDROCHLOROTHIAZIDE 25 MG TABLET (FP) PO SCH (11:44)
[2022-03-27] MEDS: METOPROLOL TARTRATE 50 MG TABLET (FP) PO SCH ×2 (11:44→21:25)
[2022-03-27] MEDS: NIFEdipine E.R. 90 MG TABLET PO SCH (11:44)
[2022-03-27] MEDS: THIAMINE HCL 200 MG/2 ML VIAL IVPB SCH (11:44)
[2022-03-27] MEDS: HEPARIN NA (PORCINE) 5,000 UNITS/ML 1ML VIAL SQ SCH ×2 (11:44→21:24)
[2022-03-27 12:30] LABS: HEMOGLOBIN 10.2 GM/dL (11.7-16.9); MCH 32.1 pg (25.7-33.7); MEAN CELL VOLUME 94.3 fl (80-96); MEAN PLT VOLUME 8.2 fl (7.5-11.1); PLATELET COUNT 194 10^3/uL (134-434); RBC 3.19 M/mm3 (4.00-5.60); RDW 15.5 % (11.9-15.9); WHITE BLOOD COUNT 4.1 K/mm3 (4.0-10.0)
[2022-03-27 12:57] LABS: CALCIUM 8.8 mg/dL (8.5-10.1)
[2022-03-27 12:58] LABS: ALBUMIN 2.8 g/dl (3.4-5.0); BLOOD UREA NITROGEN 4.3 mg/dL (7-18)
[2022-03-27 13:01] LABS: CREATININE 0.6 mg/dL (0.55-1.3)
[2022-03-27 13:03] LABS: TOT PROT 6.1 g/dl (6.4-8.2)
[2022-03-27] MEDS ORDERED: POTASSIUM CHLORIDE ORAL LIQUID 20 MEQ/15 ML PO ONE (16:01)
[2022-03-27] MEDS ORDERED: SODIUM CHLORIDE 1,000 ML with POTASSIUM CHLORIDE 10 MEQ IV SCH (16:02)
[2022-03-27] MEDS: POTASSIUM CHLORIDE 10 MEQ in SODIUM CHLORIDE 1,000 ML IV SCH (16:57)
[2022-03-28] MEDS ORDERED: INSULIN (NOVOLOG) ASPART 100 UNITS/ML 10ML VIAL SQ ONE (04:35)
[2022-03-28] MEDS ORDERED: chlordiazePOXIDE HCL 10 MG CAPSULE PO ONE ×2 (05:00)
[2022-03-28] MEDS: hydrALAZINE HCL 25 MG TABLET (FP) PO SCH ×3 (05:17→21:06)
[2022-03-28] MEDS: POTASSIUM CHLORIDE 10 MEQ in SODIUM CHLORIDE 1,000 ML IV SCH ×2 (06:32→17:22)
[2022-03-28 06:45] LABS: HEMATOCRIT 29.3 % (35.4-49); HEMOGLOBIN 10.1 GM/dL (11.7-16.9); MCH 32.7 pg (25.7-33.7); MCHC 34.4 g/dl (32.0-35.9); MEAN CELL VOLUME 95.2 fl (80-96); MEAN PLT VOLUME 8.7 fl (7.5-11.1); PLATELET COUNT 246 10^3/uL (134-434); RBC 3.08 M/mm3 (4.00-5.60); RDW 15.7 % (11.9-15.9); WHITE BLOOD COUNT 3.7 K/mm3 (4.0-10.0)
[2022-03-28 07:01] LABS: CALCIUM 9.2 mg/dL (8.5-10.1); MAGNESIUM 1.8 mg/dL (1.8-2.4)
[2022-03-28 07:05] LABS: CREATININE 0.7 mg/dL (0.55-1.3)
[2022-03-28 07:06] LABS: BILIRUBIN,TOTAL 0.6 mg/dL (0.2-1); TOT PROT 6.3 g/dl (6.4-8.2)
[2022-03-28] MEDS: HEPARIN NA (PORCINE) 5,000 UNITS/ML 1ML VIAL SQ SCH ×2 (09:58→21:05)
[2022-03-28] MEDS: METOPROLOL TARTRATE 50 MG TABLET (FP) PO SCH ×2 (09:58→21:06)
[2022-03-28] MEDS: NIFEdipine E.R. 90 MG TABLET PO SCH (09:58)
[2022-03-28] MEDS: LIPASE/PROTEASE/AMYLASE 36,000 UNIT CAPSULE PO SCH ×3 (09:58→17:22)
[2022-03-28] MEDS: THIAMINE HCL 200 MG/2 ML VIAL IVPB SCH (09:58)
[2022-03-28] MEDS: HYDROCHLOROTHIAZIDE 25 MG TABLET (FP) PO SCH (09:58)
[2022-03-28] MEDS: MELATONIN 5 MG TABLETS PO PRN (21:06)
[2022-03-28 23:15] VITALS: RESP 18
[2022-03-29] MEDS: hydrALAZINE HCL 25 MG TABLET (FP) PO SCH ×3 (05:08→21:37)
[2022-03-29] MEDS: POTASSIUM CHLORIDE 10 MEQ in SODIUM CHLORIDE 1,000 ML IV SCH ×3 (05:30→17:29)
[2022-03-29] MEDS: LIPASE/PROTEASE/AMYLASE 36,000 UNIT CAPSULE PO SCH ×3 (07:51→17:30)
[2022-03-29 09:43] LABS: CALCIUM 9.6 mg/dL (8.5-10.1)
[2022-03-29 09:45] LABS: ALBUMIN 3.5 g/dl (3.4-5.0); BLOOD UREA NITROGEN 4.4 mg/dL (7-18)
[2022-03-29 09:48] LABS: CREATININE 0.9 mg/dL (0.55-1.3)
[2022-03-29 09:49] LABS: BILIRUBIN,TOTAL 0.8 mg/dL (0.2-1); TOT PROT 7.3 g/dl (6.4-8.2)
[2022-03-29] MEDS: HEPARIN NA (PORCINE) 5,000 UNITS/ML 1ML VIAL SQ SCH ×3 (09:52→21:40)
[2022-03-29] MEDS: HYDROCHLOROTHIAZIDE 25 MG TABLET (FP) PO SCH (09:52)
[2022-03-29] MEDS: METOPROLOL TARTRATE 50 MG TABLET (FP) PO SCH ×2 (09:54→21:37)
[2022-03-29] MEDS: NIFEdipine E.R. 90 MG TABLET PO SCH (09:54)
[2022-03-29] MEDS: THIAMINE HCL 200 MG/2 ML VIAL IVPB SCH (09:54)
[2022-03-29] MEDS ORDERED: morphine SULFATE 4 MG/ML VIAL IVPUSH ONE (17:34)
[2022-03-29] MEDS: MELATONIN 5 MG TABLETS PO PRN (21:37)
[2022-03-30] MEDS: POTASSIUM CHLORIDE 10 MEQ in SODIUM CHLORIDE 1,000 ML IV SCH ×2 (04:16→17:29)
[2022-03-30] MEDS ORDERED: ACETAMINOPHEN 1000 MG/100 ML BAG IVPB ONE (04:37)
[2022-03-30] MEDS: hydrALAZINE HCL 25 MG TABLET (FP) PO SCH ×3 (05:03→21:54)
[2022-03-30] MEDS: LIPASE/PROTEASE/AMYLASE 36,000 UNIT CAPSULE PO SCH ×3 (08:58→17:29)
[2022-03-30 09:49] LABS: HEMATOCRIT 34.3 % (35.4-49); HEMOGLOBIN 11.5 GM/dL (11.7-16.9); MCH 31.9 pg (25.7-33.7); MCHC 33.5 g/dl (32.0-35.9); MEAN CELL VOLUME 95.1 fl (80-96); MEAN PLT VOLUME 7.8 fl (7.5-11.1); PLATELET COUNT 395 10^3/uL (134-434); RBC 3.61 M/mm3 (4.00-5.60); RDW 15.6 % (11.9-15.9)
[2022-03-30 10:11] LABS: ALBUMIN 3.6 g/dl (3.4-5.0); CALCIUM 10.2 mg/dL (8.5-10.1)
[2022-03-30] MEDS: HYDROCHLOROTHIAZIDE 25 MG TABLET (FP) PO SCH (10:11)
[2022-03-30] MEDS: NIFEdipine E.R. 90 MG TABLET PO SCH (10:11)
[2022-03-30] MEDS: METOPROLOL TARTRATE 50 MG TABLET (FP) PO SCH ×2 (10:11→21:54)
[2022-03-30] MEDS: THIAMINE HCL 200 MG/2 ML VIAL IVPB SCH (10:12)
[2022-03-30] MEDS: HEPARIN NA (PORCINE) 5,000 UNITS/ML 1ML VIAL SQ SCH ×2 (10:12→21:47)
[2022-03-30 10:14] LABS: CREATININE 0.9 mg/dL (0.55-1.3)
[2022-03-30 10:15] LABS: BILIRUBIN,TOTAL 0.6 mg/dL (0.2-1); TOT PROT 7.6 g/dl (6.4-8.2)
[2022-03-30] MEDS: oxyCODONE HCL 5 MG TABLET PO PRN ×2 (12:03→21:51)
[2022-03-30] MEDS: D5-1/2NS+20 MEQ KCL - 20 MEQ/1,000 ML INFUS.BAG IV SCH (12:27)
[2022-03-30] MEDS: MELATONIN 5 MG TABLETS PO PRN (21:51)
[2022-03-31] MEDS ORDERED: ONDANSETRON 4 MG/2 ML VIAL IVPUSH PRN (02:22)
[2022-03-31] MEDS: hydrALAZINE HCL 25 MG TABLET (FP) PO SCH ×3 (05:52→21:57)
[2022-03-31] MEDS: POTASSIUM CHLORIDE 10 MEQ in SODIUM CHLORIDE 1,000 ML IV SCH (06:18)
[2022-03-31] MEDS: HYDROCHLOROTHIAZIDE 25 MG TABLET (FP) PO SCH (09:12)
[2022-03-31] MEDS: METOPROLOL TARTRATE 50 MG TABLET (FP) PO SCH ×2 (09:12→21:57)
[2022-03-31] MEDS: NIFEdipine E.R. 90 MG TABLET PO SCH (09:12)
[2022-03-31] MEDS: HEPARIN NA (PORCINE) 5,000 UNITS/ML 1ML VIAL SQ SCH ×2 (09:12→22:03)
[2022-03-31] MEDS: LIPASE/PROTEASE/AMYLASE 36,000 UNIT CAPSULE PO SCH ×3 (09:13→17:20)
[2022-03-31] MEDS: THIAMINE HCL 200 MG/2 ML VIAL IVPB SCH (09:13)
[2022-03-31] MEDS: oxyCODONE HCL 5 MG TABLET PO PRN ×2 (09:24→22:02)
[2022-03-31 09:32] LABS: BASO % 0.5 % (0-2.0); HEMATOCRIT 35.6 % (35.4-49); HEMOGLOBIN 12.1 GM/dL (11.7-16.9); LYMPH % 44.1 % (8-40); MCH 32.5 pg (25.7-33.7); MCHC 33.9 g/dl (32.0-35.9); MEAN CELL VOLUME 95.7 fl (80-96); MEAN PLT VOLUME 9.3 fl (7.5-11.1); MONO % 19.3 % (3.8-10.2); NEUT % 34.1 % (42.8-82.8); PLATELET COUNT 437 10^3/uL (134-434); RBC 3.72 M/mm3 (4.00-5.60); RDW 15.6 % (11.9-15.9); WHITE BLOOD COUNT 3.3 K/mm3 (4.0-10.0)
[2022-03-31 10:44] LABS: ALBUMIN 3.8 g/dl (3.4-5.0); BLOOD UREA NITROGEN 4.7 mg/dL (7-18); CALCIUM 10.2 mg/dL (8.5-10.1)
[2022-03-31 10:47] LABS: CREATININE 0.9 mg/dL (0.55-1.3)
[2022-03-31 10:48] LABS: BILIRUBIN,TOTAL 0.7 mg/dL (0.2-1)
[2022-03-31 10:49] LABS: TOT PROT 7.9 g/dl (6.4-8.2)
[2022-03-31] MEDS: D5-1/2NS+20 MEQ KCL - 20 MEQ/1,000 ML INFUS.BAG IV SCH (12:04)
[2022-03-31] MEDS: MELATONIN 5 MG TABLETS PO PRN (22:02)
[2022-04-01] MEDS: hydrALAZINE HCL 25 MG TABLET (FP) PO SCH (05:52)
[2022-04-01] MEDS: LIPASE/PROTEASE/AMYLASE 36,000 UNIT CAPSULE PO SCH (09:10)
[2022-04-01] MEDS: HYDROCHLOROTHIAZIDE 25 MG TABLET (FP) PO SCH (09:10)
[2022-04-01] MEDS: NIFEdipine E.R. 90 MG TABLET PO SCH (09:10)
[2022-04-01] MEDS: METOPROLOL TARTRATE 50 MG TABLET (FP) PO SCH (09:10)
[2022-04-01] MEDS: HEPARIN NA (PORCINE) 5,000 UNITS/ML 1ML VIAL SQ SCH (09:11)
[2022-04-01] MEDS: THIAMINE HCL 200 MG/2 ML VIAL IVPB SCH (09:11)
[2022-04-01 09:19] VITALS: BP 133/91; PULSE 83; TEMP 97.4
== END 2022-04-01 12:13 | disposition home or self-care (01) | DRG 440 ==
LOC: JER 13:02 → JERBED 15:18 → J6S 23:00 → J2W 03-24 10:53 → J6S 03-28 15:03
PROVIDERS: ADMIT Internal Medicine; ATTEND Internal Medicine
PROC: HZ2ZZZZ Detoxification Services for Substance Abuse Treatment (ICD-10-PCS; principal; 2022-03-23)
DX: K85.20 Alcohol induced acute pancreatitis without necrosis or infection (principal); F10.20 Alcohol dependence, uncomplicated; I10 Essential (primary) hypertension; K86.89 Other specified diseases of pancreas
CPT/HCPCS: 0241U-QW; 36415; 70450-TC; 71045-TC-FY; 74177-TC; 74182-TC; 76705-TC; 80048; 80053; 80307; 81003; 82010; 82803; 82962; 83690; 83735; 84100; 84484; 85025; 85027; 85610; 85730; 93005; 93010; 97116-GP; 97161-GP; 99285-25; J1644; Q9967

== ENCOUNTER 2022-04-17 21:20 | Inpatient (IN) | payer BC ==
[2022-04-17 21:27] VITALS: BMI 28.0
[2022-04-17] MEDS ORDERED: dilTIAZem HCL 125 MG/25 ML - 25 ML VIAL ONE ×2 (21:54→23:08)
[2022-04-17] MEDS ORDERED: diazePAM CARPU-JECT 10 MG/2 ML DISP.SYRIN ONE (21:59)
[2022-04-17] MEDS ORDERED: ONDANSETRON 4 MG/2 ML VIAL ONE (21:59)
[2022-04-17] MEDS ORDERED: FAMOTIDINE 20 MG/50 ML IVPB 20 MG/50 ML MG IVPB ONE ×2 (21:59→22:01)
[2022-04-17] MEDS ORDERED: LACTATED RINGERS SOLUTION 1000 ML INFUS.BAG IV ONE ×2 (22:00)
[2022-04-17] MEDS ORDERED: diazePAM CARPU-JECT 10 MG/2 ML DISP.SYRIN IVPUSH ONE (22:00)
[2022-04-17] MEDS ORDERED: ONDANSETRON 4 MG/2 ML VIAL IVPUSH ONE (22:01)
[2022-04-17] MEDS ORDERED: dilTIAZem HCL 50 MG/10 ML - 10 ML VIAL IVPUSH ONE ×2 (22:02→22:50)
[2022-04-17 22:31] LABS: BASO % 0.4 % (0-2.0); EOS % 0.3 % (0-4.5); HEMATOCRIT 39.3 % (35.4-49); HEMOGLOBIN 13.6 GM/dL (11.7-16.9); LYMPH % 55.4 % (8-40); MCH 31.8 pg (25.7-33.7); MCHC 34.5 g/dl (32.0-35.9); MEAN CELL VOLUME 92.1 fl (80-96); MEAN PLT VOLUME 9.7 fl (7.5-11.1); MONO % 9.6 % (3.8-10.2); NEUT % 34.3 % (42.8-82.8); PLATELET COUNT 200 10^3/uL (134-434); RBC 4.26 M/mm3 (4.00-5.60); RDW 16.1 % (11.9-15.9); WHITE BLOOD COUNT 3.7 K/mm3 (4.0-10.0)
[2022-04-17 22:43] LABS: VENOUS BASE EXCESS -2.1 mmol/L (-2-2); VENOUS O2 SATURATION 92.9 % (70-80); VENOUS PCO2 37.2 mmHg (38-52); VENOUS PH 7.396 (7.310-7.410)
[2022-04-17 22:46] LABS: INR 0.98 (0.83-1.09); PROTHROMBIN TIME (PATIENT) 11.4 SEC (9.7-13.0)
[2022-04-17 22:49] LABS: ACTIVATED PTT 33.1 SECONDS (25.2-36.5)
[2022-04-17 22:58] LABS: ALBUMIN 4.2 g/dl (3.4-5.0); CALCIUM 9.5 mg/dL (8.5-10.1)
[2022-04-17 23:00] LABS: BLOOD UREA NITROGEN 10.4 mg/dL (7-18); MAGNESIUM 1.9 mg/dL (1.8-2.4)
[2022-04-17 23:03] LABS: TOT PROT 8.6 g/dl (6.4-8.2)
[2022-04-17 23:31] LABS: LACTIC ACID 5.2 mmol/L (0.4-2.0)
[2022-04-17] MEDS ORDERED: dilTIAZem HCL 60 MG TABLET ONE (23:35)
[2022-04-17] MEDS ORDERED: MAG HYDROX/AL HYDROX/SIMETH 30 ML UNIT-DOSE CUP PO ONE (23:38)
[2022-04-17] MEDS ORDERED: MAG HYDROX/AL HYDROX/SIMETH 30 ML UNIT-DOSE CUP ONE (23:40)
[2022-04-18] MEDS ORDERED: dilTIAZem HCL 50 MG/10 ML - 10 ML VIAL IVPUSH ONE (00:21)
[2022-04-18] MEDS ORDERED: dilTIAZem HCL 125 MG/25 ML - 25 ML VIAL ONE (00:26)
[2022-04-18 01:23] LABS: PH,URINE 5.5 (5.0-8.0); URINE APPEARANCE CLEAR; URINE BILIRUBIN NEGATIVE (NEGATIVE); URINE COLOR YELLOW; URINE GLUCOSE (UA) NEGATIVE (NEGATIVE); URINE KETONE 1+ (NEGATIVE); URINE LEUK ESTERASE NEGATIVE (NEGATIVE); URINE NITRITE NEGATIVE (NEGATIVE); URINE PROTEIN NEGATIVE (NEGATIVE); URINE UROBILINOGEN 0.2 mg/dL (0.2-1.0)
[2022-04-18 01:30] LABS: METHADONE, UR NEGATIVE (NEGATIVE); OPIATES, URI NEGATIVE (NEGATIVE); PHENCYCLIDINE,URINE NEGATIVE (NEGATIVE)
[2022-04-18 01:42] LABS: COCAINE, UR NEGATIVE (NEGATIVE); URINE AMPHETAMINES NEGATIVE (NEGATIVE); URINE BARBITURATES NEGATIVE (NEGATIVE); URINE BENZODIAZEPINES POSITIVE (NEGATIVE)
[2022-04-18 02:08] LABS: LACTIC ACID 2.7 mmol/L (0.4-2.0)
[2022-04-18] MEDS ORDERED: diazePAM 5 MG TABLET PO PRN (06:05)
[2022-04-18 07:59] LABS: ALBUMIN 3.7 g/dl (3.4-5.0); BLOOD UREA NITROGEN 6.9 mg/dL (7-18); CALCIUM 9.1 mg/dL (8.5-10.1); MAGNESIUM 1.6 mg/dL (1.8-2.4)
[2022-04-18 08:02] LABS: CREATININE 0.9 mg/dL (0.55-1.3); TOT PROT 7.4 g/dl (6.4-8.2)
[2022-04-18 08:12] LABS: BASO % 0.3 % (0-2.0); EOS % 0.5 % (0-4.5); HEMATOCRIT 34.8 % (35.4-49); LYMPH % 43.9 % (8-40); MCH 31.8 pg (25.7-33.7); MCHC 34.5 g/dl (32.0-35.9); MEAN CELL VOLUME 92.1 fl (80-96); MEAN PLT VOLUME 9.3 fl (7.5-11.1); MONO % 10.2 % (3.8-10.2); NEUT % 45.1 % (42.8-82.8); PLATELET COUNT 176 10^3/uL (134-434); RBC 3.78 M/mm3 (4.00-5.60); RDW 15.4 % (11.9-15.9); WHITE BLOOD COUNT 3.9 K/mm3 (4.0-10.0)
[2022-04-18 08:34] LABS: BILIRUBIN,TOTAL 1.5 mg/dL (0.2-1)
[2022-04-18] MEDS ORDERED: POTASSIUM CHLORIDE ORAL LIQUID 20 MEQ/15 ML PO ONE (09:47)
[2022-04-18] MEDS ORDERED: MAGNESIUM 2GM/50ML STERILE WATER IVPB IVPB ONE (10:30)
[2022-04-18] MEDS ORDERED: METOPROLOL TARTRATE 50 MG TABLET (FP) ONE (10:38)
[2022-04-18] MEDS ORDERED: POTASSIUM CHLORIDE ORAL LIQUID 20 MEQ/15 ML ONE (10:39)
[2022-04-18] MEDS ORDERED: MAGNESIUM SULFATE IN WATER 2 GM/50 ML IVPB IVPB ONE (10:39)
[2022-04-18] MEDS: SODIUM CHLORIDE 1,000 ML IV SCH ×2 (10:45→23:13)
[2022-04-18] MEDS ORDERED: chlordiazePOXIDE HCL 25 MG CAPSULE PO PRN (11:49)
[2022-04-18] MEDS ORDERED: chlordiazePOXIDE HCL 25 MG CAPSULE ONE (13:33)
[2022-04-18] MEDS: chlordiazePOXIDE HCL 25 MG CAPSULE PO SCH ×4 (13:55→23:06)
[2022-04-19] MEDS: chlordiazePOXIDE HCL 25 MG CAPSULE PO SCH ×4 (05:13→22:13)
[2022-04-19 09:49] LABS: CO2 22 mmol/L (21-32)
[2022-04-19] MEDS: SODIUM CHLORIDE 1,000 ML IV SCH (11:07)
[2022-04-19 11:33] LABS: ANION GAP 9 MMOL/L (8-16); CALCIUM 7.1 mg/dL (8.5-10.1); CHLORIDE 110 mmol/L (98-107); CREATININE 0.5 mg/dL (0.55-1.3); GLUCOSE,RANDOM 107 mg/dL (74-106); MAGNESIUM 1.6 mg/dL (1.8-2.4); SODIUM 142 mmol/L (136-145)
[2022-04-19] MEDS: POTASSIUM CHLORIDE TABS 20 MEQ TABLET.ER (FP) PO SCH (12:27)
[2022-04-19] MEDS: MAGNESIUM OXIDE 400 MG TABLET (FP) PO SCH ×2 (13:32→22:13)
[2022-04-19] MEDS ORDERED: POTASSIUM CHLORIDE ORAL LIQUID 20 MEQ/15 ML PO ONE (16:00)
[2022-04-19] MEDS ORDERED: traMADol HCL 50 MG TABLET PO ONE (21:45)
[2022-04-19] MEDS: HEPARIN NA (PORCINE) 5,000 UNITS/ML 1ML VIAL SQ SCH (22:13)
[2022-04-20] MEDS: chlordiazePOXIDE HCL 25 MG CAPSULE PO SCH ×4 (06:40→22:15)
[2022-04-20 08:55] LABS: CHLORIDE 105 mmol/L (98-107); SODIUM 137 mmol/L (136-145)
[2022-04-20 09:06] LABS: ALBUMIN 3.1 g/dl (3.4-5.0); ANION GAP 5 MMOL/L (8-16); CO2 28 mmol/L (21-32); GLUCOSE,RANDOM 113 mg/dL (74-106); SGPT/ALT 125 U/L (13-61)
[2022-04-20 09:08] LABS: BILIRUBIN,TOTAL 0.5 mg/dL (0.2-1); TOT PROT 6.2 g/dl (6.4-8.2)
[2022-04-20 09:09] LABS: ALK PHOS 52 U/L (45-117); SGOT/AST 266 U/L (15-37)
[2022-04-20 09:12] LABS: BLOOD UREA NITROGEN 2.8 mg/dL (7-18)
[2022-04-20] MEDS: POTASSIUM CHLORIDE TABS 20 MEQ TABLET.ER (FP) PO SCH (10:35)
[2022-04-20] MEDS: MAGNESIUM OXIDE 400 MG TABLET (FP) PO SCH ×2 (10:36→21:37)
[2022-04-20] MEDS: HEPARIN NA (PORCINE) 5,000 UNITS/ML 1ML VIAL SQ SCH ×3 (10:42→21:42)
[2022-04-21] MEDS ORDERED: chlordiazePOXIDE HCL 10 MG CAPSULE PO PRN
[2022-04-21] MEDS: chlordiazePOXIDE HCL 10 MG CAPSULE PO SCH ×4 (05:57→22:26)
[2022-04-21] MEDS: ASPIRIN 81 MG CHEWABLE TABLETS PO SCH (09:22)
[2022-04-21] MEDS: HEPARIN NA (PORCINE) 5,000 UNITS/ML 1ML VIAL SQ SCH ×2 (09:22→22:15)
[2022-04-21] MEDS: MAGNESIUM OXIDE 400 MG TABLET (FP) PO SCH ×2 (09:22→21:49)
[2022-04-21] MEDS: MULTIVITAMINS (DAILY MVI) TABLET (FP) PO SCH (09:22)
[2022-04-21] MEDS: POTASSIUM CHLORIDE TABS 20 MEQ TABLET.ER (FP) PO SCH (09:22)
[2022-04-21 18:05] VITALS: RESP 18
[2022-04-22] MEDS ORDERED: chlordiazePOXIDE HCL 10 MG CAPSULE PO SCH (05:00)
[2022-04-22] MEDS: POTASSIUM CHLORIDE TABS 20 MEQ TABLET.ER (FP) PO SCH (10:38)
[2022-04-22] MEDS: MULTIVITAMINS (DAILY MVI) TABLET (FP) PO SCH (10:38)
[2022-04-22] MEDS: HEPARIN NA (PORCINE) 5,000 UNITS/ML 1ML VIAL SQ SCH ×2 (10:38→10:42)
[2022-04-22] MEDS: MAGNESIUM OXIDE 400 MG TABLET (FP) PO SCH (10:39)
[2022-04-22] MEDS: ASPIRIN 81 MG CHEWABLE TABLETS PO SCH (10:39)
[2022-04-22 14:15] VITALS: BP 112/83; PULSE 110; TEMP 98.1
[2022-04-23] MEDS ORDERED: chlordiazePOXIDE HCL 10 MG CAPSULE PO ONE (05:00)
== END 2022-04-22 15:44 | disposition home or self-care (01) | DRG 897 ==
LOC: JER 21:20 → JERBED 04-18 00:48 → J5S 04-18 17:07
PROVIDERS: ADMIT Internal Medicine; ATTEND Internal Medicine
PROC: HZ2ZZZZ Detoxification Services for Substance Abuse Treatment (ICD-10-PCS; principal; 2022-04-18)
DX: F10.239 Alcohol dependence with withdrawal, unspecified (principal); I48.91 Unspecified atrial fibrillation; I10 Essential (primary) hypertension
CPT/HCPCS: 0241U-QW; 36415; 71045-TC-FY; 80048; 80053; 80061; 80307; 81003; 82803; 83605; 83690; 83735; 84443; 84484; 85025; 85610; 85730; 93005; 93010; 99291; J1644

== ENCOUNTER 2022-05-03 09:04 | Emergency (ER) | payer BC ==
[2022-05-03 09:46] VITALS: BP 150/110; PULSE 94; RESP 16; TEMP 98; BMI 28.0
[2022-05-03] MEDS ORDERED: SODIUM CHLORIDE 1,000 ML IV STA (09:56)
[2022-05-03] MEDS ORDERED: ACETAMINOPHEN 1000 MG/100 ML BAG IVPB ONE (09:57)
[2022-05-03] MEDS ORDERED: ACETAMINOPHEN INJECTION 100 ML IVPB ONE (10:09)
[2022-05-03 10:11] LABS: BASO % 0.6 % (0-2.0); EOS % 0.2 % (0-4.5); HEMATOCRIT 35.1 % (35.4-49); HEMOGLOBIN 11.8 GM/dL (11.7-16.9); LYMPH % 39.7 % (8-40); MCH 30.9 pg (25.7-33.7); MCHC 33.7 g/dl (32.0-35.9); MEAN CELL VOLUME 91.7 fl (80-96); MONO % 6.6 % (3.8-10.2); NEUT % 52.9 % (42.8-82.8); PLATELET COUNT 266 10^3/uL (134-434); RBC 3.82 M/mm3 (4.00-5.60); RDW 16.3 % (11.9-15.9); WHITE BLOOD COUNT 2.8 K/mm3 (4.0-10.0)
[2022-05-03 10:17] LABS: INR 1.04 (0.83-1.09); PROTHROMBIN TIME (PATIENT) 12.1 SEC (9.7-13.0)
[2022-05-03 10:20] LABS: ACTIVATED PTT 33.9 SECONDS (25.2-36.5)
[2022-05-03] MEDS ORDERED: KETOROLAC TROMETHAMINE 15 MG/ML VIAL IVPUSH ONE (10:20)
[2022-05-03] MEDS ORDERED: KETOROLAC TROMETHAMINE 15 MG/ML VIAL ONE (10:25)
[2022-05-03 10:31] LABS: BLOOD UREA NITROGEN 6.7 mg/dL (7-18); CALCIUM 9.3 mg/dL (8.5-10.1)
[2022-05-03 10:34] LABS: CREATININE 0.9 mg/dL (0.55-1.3)
[2022-05-03 10:36] LABS: BILIRUBIN,TOTAL 1.1 mg/dL (0.2-1)
[2022-05-03 10:43] LABS: LACTIC ACID 5.6 mmol/L (0.4-2.0)
[2022-05-03 11:14] LABS: ALBUMIN 4.2 g/dl (3.4-5.0)
[2022-05-03 12:51] LABS: PH,URINE 7.5 (5.0-8.0); URINE APPEARANCE CLEAR; URINE BILIRUBIN NEGATIVE (NEGATIVE); URINE COLOR YELLOW; URINE GLUCOSE (UA) NEGATIVE (NEGATIVE); URINE KETONE NEGATIVE (NEGATIVE); URINE LEUK ESTERASE NEGATIVE (NEGATIVE); URINE NITRITE NEGATIVE (NEGATIVE); URINE PROTEIN NEGATIVE (NEGATIVE)
[2022-05-03] MEDS ORDERED: KETOROLAC TROMETHAMINE 30 MG/1 ML VIAL IVPUSH ONE (14:43)
[2022-05-03] MEDS ORDERED: KETOROLAC TROMETHAMINE 30 MG/1 ML VIAL ONE (14:47)
[2022-05-03 15:06] LABS: LACTIC ACID 4.3 mmol/L (0.4-2.0)
== END 2022-05-03 15:30 | disposition home or self-care (01) ==
LOC: JER 09:04
PROC: 3E0333Z Introduction of Anti-inflammatory into Peripheral Vein, Percutaneous Approach (ICD-10-PCS; principal; 2022-05-03)
PROC: 3E0333Z Introduction of Anti-inflammatory into Peripheral Vein, Percutaneous Approach (ICD-10-PCS; 2022-05-03)
PROC: 3E0333Z Introduction of Anti-inflammatory into Peripheral Vein, Percutaneous Approach (ICD-10-PCS; 2022-05-03)
PROC: 3E0337Z Introduction of Electrolytic and Water Balance Substance into Peripheral Vein, Percutaneous Approach (ICD-10-PCS; 2022-05-03)
DX: R10.31 Right lower quadrant pain (principal); M54.50 Low back pain, unspecified
CPT/HCPCS: 0241U-QW; 36415; 74177-TC; 80053; 81003; 83605; 83690; 85025; 85610; 85730; 87086; 99285-25; Q9967

== ENCOUNTER 2022-05-24 22:32 | Inpatient (IN) | payer BC ==
[2022-05-24 22:40] VITALS: BMI 27.4
[2022-05-24] MEDS ORDERED: ONDANSETRON 4 MG/2 ML VIAL IVPUSH ONE (22:53)
[2022-05-24] MEDS ORDERED: diazePAM CARPU-JECT 10 MG/2 ML DISP.SYRIN IVPUSH ONE ×2 (22:54→23:35)
[2022-05-24] MEDS ORDERED: SODIUM CHLORIDE 0.9% 500 ML INFUS.BAG IV ONE (22:54)
[2022-05-24] MEDS ORDERED: ONDANSETRON 4 MG/2 ML VIAL ONE (23:04)
[2022-05-24] MEDS ORDERED: diazePAM CARPU-JECT 10 MG/2 ML DISP.SYRIN ONE ×2 (23:04→23:39)
[2022-05-24 23:28] LABS: BASO % 0.9 % (0-2.0); HEMATOCRIT 46.9 % (35.4-49); LYMPH % 53.1 % (8-40); MCH 31.6 pg (25.7-33.7); MCHC 34.1 g/dl (32.0-35.9); MEAN CELL VOLUME 92.5 fl (80-96); MEAN PLT VOLUME 8.6 fl (7.5-11.1); MONO % 2.9 % (3.8-10.2); NEUT % 43.1 % (42.8-82.8); PLATELET COUNT 305 10^3/uL (134-434); RBC 5.07 M/mm3 (4.00-5.60); RDW 16.4 % (11.9-15.9)
[2022-05-24 23:35] LABS: INR 1.04 (0.83-1.09); PROTHROMBIN TIME (PATIENT) 12.1 SEC (9.7-13.0)
[2022-05-24 23:38] LABS: ACTIVATED PTT 30.4 SECONDS (25.2-36.5)
[2022-05-24 23:48] LABS: CHLORIDE 96 mmol/L (98-107); SODIUM 136 mmol/L (136-145)
[2022-05-24 23:54] LABS: ALBUMIN 4.9 g/dl (3.4-5.0); ANION GAP 26 MMOL/L (8-16); BLOOD UREA NITROGEN 10.9 mg/dL (7-18); CO2 14 mmol/L (21-32); GLUCOSE,RANDOM 72 mg/dL (74-106); LIPASE 296 U/L (73-393); MAGNESIUM 1.7 mg/dL (1.8-2.4)
[2022-05-24 23:56] LABS: SGOT/AST 123 U/L (15-37); SGPT/ALT 49 U/L (13-61)
[2022-05-24 23:57] LABS: LACTIC ACID 10.8 mmol/L (0.4-2.0)
[2022-05-24 23:58] LABS: ALK PHOS 83 U/L (45-117); BILIRUBIN,TOTAL 1.5 mg/dL (0.2-1); TOT PROT 9.6 g/dl (6.4-8.2)
[2022-05-25] MEDS ORDERED: THIAMINE HCL 200 MG/2 ML VIAL IVPB ONE (00:04)
[2022-05-25] MEDS ORDERED: MAGNESIUM SULF 50% (8.12 MEQ/2 ML-1 GM VIAL) IVPB ONE (00:04)
[2022-05-25] MEDS ORDERED: DEXTROSE 5%-NORMAL SALINE 1,000 ML IV ONE (00:05)
[2022-05-25] MEDS ORDERED: DEXTROSE 5%-NORMAL SALINE 1,000 ML IV SCH (00:15)
[2022-05-25] MEDS ORDERED: FOLIC ACID INJECTION - 1 MG, THIAMINE HCL 100 MG, MULTIVIT INJECTION ADULT 10 ML in SOD... IVPB ONE (00:41)
[2022-05-25] MEDS ORDERED: THIAMINE HCL 200 MG/2 ML VIAL ONE (01:22)
[2022-05-25] MEDS ORDERED: MAGNESIUM SULFATE IN WATER 2 GM/50 ML IVPB IVPB ONE (01:22)
[2022-05-25] MEDS: DEXTROSE 5%-NORMAL SALINE 1,000 ML IV SCH (06:25)
[2022-05-25 06:41] LABS: EPI CELLS 4 /uL (0-25.1); HYALINE CASTS 1 /uL (0-3.1); URINE APPEARANCE CLEAR; URINE BACTERIA 4 /uL (0-1359); URINE BILIRUBIN NEGATIVE (NEGATIVE); URINE COLOR YELLOW; URINE GLUCOSE (UA) 2+ (NEGATIVE); URINE KETONE 3+ (NEGATIVE); URINE LEUK ESTERASE NEGATIVE (NEGATIVE); URINE NITRITE NEGATIVE (NEGATIVE); URINE PROTEIN 2+ (NEGATIVE); URINE RBC 19 /uL (0-23.9); URINE UROBILINOGEN 0.2 mg/dL (0.2-1.0); URINE WBC 4 /uL (0-25.8)
[2022-05-25 08:09] LABS: BASO % 0.7 % (0-2.0); EOS % 0.2 % (0-4.5); HEMATOCRIT 36.3 % (35.4-49); HEMOGLOBIN 12.8 GM/dL (11.7-16.9); LYMPH % 49.8 % (8-40); MCH 31.9 pg (25.7-33.7); MCHC 35.1 g/dl (32.0-35.9); MEAN CELL VOLUME 90.8 fl (80-96); MEAN PLT VOLUME 8.7 fl (7.5-11.1); MONO % 8.1 % (3.8-10.2); NEUT % 41.2 % (42.8-82.8); PLATELET COUNT 212 10^3/uL (134-434); RDW 15.8 % (11.9-15.9); WHITE BLOOD COUNT 3.4 K/mm3 (4.0-10.0)
[2022-05-25 08:24] LABS: BLOOD UREA NITROGEN 7.5 mg/dL (7-18); MAGNESIUM 1.8 mg/dL (1.8-2.4)
[2022-05-25 08:26] LABS: CREATININE 0.8 mg/dL (0.55-1.3)
[2022-05-25 08:29] LABS: BILIRUBIN,TOTAL 1.7 mg/dL (0.2-1); TOT PROT 7.8 g/dl (6.4-8.2)
[2022-05-25 08:32] LABS: CALCIUM 8.4 mg/dL (8.5-10.1)
[2022-05-25] MEDS ORDERED: chlordiazePOXIDE HCL 25 MG CAPSULE PO PRN (08:46)
[2022-05-25] MEDS ORDERED: METOPROLOL TARTRATE 50 MG TABLET (FP) ONE ×2 (09:02→14:38)
[2022-05-25] MEDS ORDERED: MULTIVITAMINS (DAILY MVI) TABLET (FP) ONE (09:02)
[2022-05-25] MEDS ORDERED: MAGNESIUM OXIDE 400 MG TABLET (FP) ONE (09:02)
[2022-05-25] MEDS ORDERED: PANTOPRAZOLE SODIUM 40 MG VIAL ONE (09:02)
[2022-05-25] MEDS ORDERED: THIAMINE HCL 100 MG TABLET (FP) ONE (09:02)
[2022-05-25] MEDS ORDERED: FOLIC ACID 1 MG TABLET (FP) ONE (09:02)
[2022-05-25] MEDS ORDERED: chlordiazePOXIDE HCL 25 MG CAPSULE ONE ×3 (09:25→17:43)
[2022-05-25] MEDS: MAGNESIUM OXIDE 400 MG TABLET (FP) PO SCH ×2 (09:29→21:16)
[2022-05-25] MEDS: FOLIC ACID 1 MG TABLET (FP) PO SCH (09:29)
[2022-05-25] MEDS: THIAMINE HCL 100 MG TABLET (FP) PO SCH (09:29)
[2022-05-25] MEDS: MULTIVITAMINS (DAILY MVI) TABLET (FP) PO SCH (09:29)
[2022-05-25] MEDS: METOPROLOL TARTRATE 50 MG TABLET (FP) PO SCH ×2 (09:29→21:16)
[2022-05-25] MEDS ORDERED: PANTOPRAZOLE SODIUM 40 MG VIAL IVPUSH SCH (10:00)
[2022-05-25 11:23] LABS: COCAINE, UR NEGATIVE (NEGATIVE); OPIATES, URI NEGATIVE (NEGATIVE); PHENCYCLIDINE,URINE NEGATIVE (NEGATIVE); URINE BARBITURATES NEGATIVE (NEGATIVE)
[2022-05-25 11:24] LABS: URINE AMPHETAMINES NEGATIVE (NEGATIVE)
[2022-05-25 11:25] LABS: METHADONE, UR NEGATIVE (NEGATIVE); URINE BENZODIAZEPINES POSITIVE (NEGATIVE)
[2022-05-25] MEDS ORDERED: hydrALAZINE HCL 20 MG/ML VIAL IVPUSH PRN (11:48)
[2022-05-25] MEDS: chlordiazePOXIDE HCL 25 MG CAPSULE PO SCH ×3 (12:00→22:40)
[2022-05-25] MEDS ORDERED: METOPROLOL TARTRATE 50 MG TABLET (FP) PO ONE (14:10)
[2022-05-25] MEDS: LIPASE/PROTEASE/AMYLASE 36,000 UNIT CAPSULE PO SCH ×2 (15:58→17:48)
[2022-05-25] MEDS ORDERED: HYDROCHLOROTHIAZIDE 25 MG TABLET (FP) ONE (17:43)
[2022-05-25] MEDS ORDERED: NIFEdipine E.R 60 MG TABLET PO ONE (17:43)
[2022-05-25] MEDS: HYDROCHLOROTHIAZIDE 25 MG TABLET (FP) PO SCH (17:48)
[2022-05-25] MEDS: NIFEdipine E.R 60 MG TABLET PO SCH (17:48)
[2022-05-26] MEDS: chlordiazePOXIDE HCL 25 MG CAPSULE PO SCH ×4 (04:09→22:57)
[2022-05-26] MEDS: LIPASE/PROTEASE/AMYLASE 36,000 UNIT CAPSULE PO SCH ×3 (10:07→17:22)
[2022-05-26] MEDS: PANTOPRAZOLE SODIUM 40 MG VIAL IVPUSH SCH ×2 (10:08→22:58)
[2022-05-26] MEDS: MAGNESIUM OXIDE 400 MG TABLET (FP) PO SCH ×2 (10:08→22:57)
[2022-05-26] MEDS: MULTIVITAMINS (DAILY MVI) TABLET (FP) PO SCH (10:08)
[2022-05-26] MEDS: HYDROCHLOROTHIAZIDE 25 MG TABLET (FP) PO SCH (10:08)
[2022-05-26] MEDS: NIFEdipine E.R 60 MG TABLET PO SCH (10:08)
[2022-05-26] MEDS: METOPROLOL TARTRATE 50 MG TABLET (FP) PO SCH ×2 (10:08→22:57)
[2022-05-26] MEDS: THIAMINE HCL 100 MG TABLET (FP) PO SCH (10:08)
[2022-05-26] MEDS: FOLIC ACID 1 MG TABLET (FP) PO SCH (10:09)
[2022-05-26] MEDS: DEXTROSE 5%-NORMAL SALINE 1,000 ML IV SCH (10:10)
[2022-05-26] MEDS: HEPARIN NA (PORCINE) 5,000 UNITS/ML 1ML VIAL SQ SCH ×2 (10:11→22:58)
[2022-05-27 00:08] VITALS: RESP 18
[2022-05-27] MEDS: chlordiazePOXIDE HCL 25 MG CAPSULE PO SCH ×2 (05:39→11:07)
[2022-05-27] MEDS: PANTOPRAZOLE SODIUM 40 MG VIAL IVPUSH SCH (09:36)
[2022-05-27] MEDS: NIFEdipine E.R 60 MG TABLET PO SCH (09:36)
[2022-05-27] MEDS: THIAMINE HCL 100 MG TABLET (FP) PO SCH (09:36)
[2022-05-27] MEDS: MAGNESIUM OXIDE 400 MG TABLET (FP) PO SCH (09:38)
[2022-05-27] MEDS: MULTIVITAMINS (DAILY MVI) TABLET (FP) PO SCH (09:38)
[2022-05-27] MEDS: HEPARIN NA (PORCINE) 5,000 UNITS/ML 1ML VIAL SQ SCH (09:38)
[2022-05-27] MEDS: DEXTROSE 5%-NORMAL SALINE 1,000 ML IV SCH (09:38)
[2022-05-27] MEDS: HYDROCHLOROTHIAZIDE 25 MG TABLET (FP) PO SCH (09:38)
[2022-05-27] MEDS: FOLIC ACID 1 MG TABLET (FP) PO SCH (09:38)
[2022-05-27] MEDS: LIPASE/PROTEASE/AMYLASE 36,000 UNIT CAPSULE PO SCH ×2 (09:38→11:08)
[2022-05-27] MEDS: METOPROLOL TARTRATE 50 MG TABLET (FP) PO SCH (09:38)
[2022-05-27 10:33] VITALS: BP 124/94; PULSE 89; TEMP 98.6
[2022-05-28] MEDS ORDERED: chlordiazePOXIDE HCL 10 MG CAPSULE PO PRN
[2022-05-28] MEDS ORDERED: chlordiazePOXIDE HCL 10 MG CAPSULE PO SCH (05:00)
[2022-05-29] MEDS ORDERED: chlordiazePOXIDE HCL 10 MG CAPSULE PO SCH (05:00)
[2022-05-30] MEDS ORDERED: chlordiazePOXIDE HCL 10 MG CAPSULE PO ONE (05:00)
== END 2022-05-27 13:13 | disposition home or self-care (01) | DRG 641 ==
LOC: JER 22:32 → JERBED 05-25 01:44 → J4S 05-25 20:40
PROVIDERS: ADMIT Internal Medicine; ATTEND Internal Medicine
PROC: HZ2ZZZZ Detoxification Services for Substance Abuse Treatment (ICD-10-PCS; principal; 2022-05-25)
DX: E87.29 Other acidosis (principal); F10.239 Alcohol dependence with withdrawal, unspecified; R07.89 Other chest pain; I10 Essential (primary) hypertension; R00.0 Tachycardia, unspecified; E66.9 Obesity, unspecified; Z68.27 Body mass index [BMI] 27.0-27.9, adult; R79.89 Other specified abnormal findings of blood chemistry; R10.30 Lower abdominal pain, unspecified; I48.0 Paroxysmal atrial fibrillation; Y90.2 Blood alcohol level of 40-59 mg/100 ml
CPT/HCPCS: 0241U-QW; 36415; 71045-TC-FY; 74019-TC-FY; 80053; 80307; 81003; 82550; 82553; 82962; 83605; 83690; 83735; 84443; 84484; 85025; 85610; 85730; 87086; 93005; 93010; 99285-25; J1644

== ENCOUNTER 2022-06-07 17:30 | Inpatient (IN) | payer BC ==
[2022-06-07] MEDS ORDERED: ACETAMINOPHEN 1000 MG/100 ML BAG IVPB ONE (21:05)
[2022-06-07] MEDS ORDERED: FAMOTIDINE 20 MG TABLET PO ONE (21:05)
[2022-06-07] MEDS ORDERED: MAG HYDROX/AL HYDROX/SIMETH 30 ML UNIT-DOSE CUP PO ONE (21:05)
[2022-06-07] MEDS ORDERED: SODIUM CHLORIDE 0.9% 500 ML INFUS.BAG IV ONE (21:05)
[2022-06-07] MEDS ORDERED: ONDANSETRON 4 MG/2 ML VIAL IVPUSH ONE (21:08)
[2022-06-07] MEDS ORDERED: diazePAM CARPU-JECT 10 MG/2 ML DISP.SYRIN IVPUSH ONE ×2 (21:14→22:25)
[2022-06-07] MEDS ORDERED: diazePAM CARPU-JECT 10 MG/2 ML DISP.SYRIN ONE ×2 (21:48→22:55)
[2022-06-07] MEDS ORDERED: ACETAMINOPHEN INJECTION 100 ML IVPB ONE (21:48)
[2022-06-07] MEDS ORDERED: ONDANSETRON 4 MG/2 ML VIAL ONE (21:49)
[2022-06-07 22:26] LABS: BASO % 0.4 % (0-2.0); HEMATOCRIT 42.6 % (35.4-49); HEMOGLOBIN 14.4 GM/dL (11.7-16.9); MCH 32.3 pg (25.7-33.7); MCHC 33.7 g/dl (32.0-35.9); MEAN CELL VOLUME 95.7 fl (80-96); MEAN PLT VOLUME 8.3 fl (7.5-11.1); NEUT % 86.6 % (42.8-82.8); PLATELET COUNT 447 10^3/uL (134-434); RBC 4.45 M/mm3 (4.00-5.60); RDW 17.1 % (11.9-15.9); WHITE BLOOD COUNT 9.8 K/mm3 (4.0-10.0)
[2022-06-07 22:48] LABS: ALBUMIN 4.2 g/dl (3.4-5.0); CALCIUM 9.4 mg/dL (8.5-10.1)
[2022-06-07 22:49] LABS: BLOOD UREA NITROGEN 14.7 mg/dL (7-18)
[2022-06-07 22:51] LABS: CREATININE 1.2 mg/dL (0.55-1.3)
[2022-06-07 22:53] LABS: TOT PROT 8.8 g/dl (6.4-8.2)
[2022-06-07] MEDS ORDERED: MAG HYDROX/AL HYDROX/SIMETH 30 ML UNIT-DOSE CUP ONE (22:55)
[2022-06-07] MEDS ORDERED: FAMOTIDINE 20 MG TABLET ONE (22:56)
[2022-06-07 22:59] LABS: BILIRUBIN,TOTAL 1.6 mg/dL (0.2-1)
[2022-06-07 23:25] LABS: LACTIC ACID 7.2 mmol/L (0.4-2.0)
[2022-06-07] MEDS ORDERED: HYDROmorphone HCl 2 MG/ML VIAL IVPUSH ONE (23:29)
[2022-06-07] MEDS ORDERED: LACTATED RINGERS SOLUTION 1000 ML INFUS.BAG IV ONE (23:30)
[2022-06-08 00:53] LABS: CALCIUM 8.8 mg/dL (8.5-10.1)
[2022-06-08 00:54] LABS: ALBUMIN 3.8 g/dl (3.4-5.0); BLOOD UREA NITROGEN 12.5 mg/dL (7-18)
[2022-06-08 00:58] LABS: BILIRUBIN,TOTAL 1.6 mg/dL (0.2-1); TOT PROT 7.8 g/dl (6.4-8.2)
[2022-06-08] MEDS ORDERED: HYDROmorphone HCl 2 MG/ML VIAL ONE ×2 (01:23→03:34)
[2022-06-08] MEDS ORDERED: DEXTROSE 5%-LACTATED RINGERS 1,000 ML IV SCH (02:30)
[2022-06-08] MEDS ORDERED: HYDROmorphone HCl 2 MG/ML VIAL IVPUSH ONE (03:14)
[2022-06-08] MEDS ORDERED: DEXTROSE 5%-NORMAL SALINE 1,000 ML IV SCH (03:45)
[2022-06-08] MEDS ORDERED: morphine CARPU-JECT 2 MG/1 ML DISP.SYRIN IVPUSH ONE (06:05)
[2022-06-08] MEDS ORDERED: morphine SULFATE 4 MG/ML VIAL ONE (06:42)
[2022-06-08] MEDS ORDERED: FOLIC ACID INJECTION - 1 MG, THIAMINE HCL 100 MG, MULTIVIT INJECTION ADULT 10 ML in SOD... IVPB ONE (10:17)
[2022-06-08] MEDS ORDERED: D5-1/2NS+20 MEQ KCL - 20 MEQ/1,000 ML INFUS.BAG IV SCH (10:30)
[2022-06-08] MEDS: LIPASE/PROTEASE/AMYLASE 36,000 UNIT CAPSULE PO SCH ×2 (12:50→17:38)
[2022-06-08] MEDS ORDERED: LORazepam 2 MG/ML SDV VIAL IVPUSH PRN (13:53)
[2022-06-08] MEDS ORDERED: METOPROLOL TARTRATE 50 MG TABLET (FP) PO ONE (15:56)
[2022-06-08] MEDS ORDERED: ONDANSETRON 4 MG/2 ML VIAL ONE (20:44)
[2022-06-08] MEDS: ONDANSETRON 4 MG/2 ML VIAL IVPUSH PRN (20:48)
[2022-06-08] MEDS: DEXTROSE 5%-0.45% SALINE 1,000 ML IV SCH (22:07)
[2022-06-09] MEDS: HEPARIN NA (PORCINE) 5,000 UNITS/ML 1ML VIAL SQ SCH ×3 (01:44→21:13)
[2022-06-09] MEDS: METOPROLOL TARTRATE 50 MG TABLET (FP) PO SCH ×3 (01:44→21:13)
[2022-06-09] MEDS: MAGNESIUM OXIDE 400 MG TABLET (FP) PO SCH ×3 (01:44→21:13)
[2022-06-09 01:46] VITALS: BMI 25.8
[2022-06-09] MEDS: LIPASE/PROTEASE/AMYLASE 36,000 UNIT CAPSULE PO SCH ×3 (08:00→17:31)
[2022-06-09 08:31] LABS: CHLORIDE 102 mmol/L (98-107); SODIUM 134 mmol/L (136-145)
[2022-06-09 08:36] LABS: ALBUMIN 3.1 g/dl (3.4-5.0); ANION GAP 5 MMOL/L (8-16); CALCIUM 9.2 mg/dL (8.5-10.1); CO2 27 mmol/L (21-32); GLUCOSE,RANDOM 122 mg/dL (74-106)
[2022-06-09 08:39] LABS: CREATININE 0.7 mg/dL (0.55-1.3); SGOT/AST 193 U/L (15-37)
[2022-06-09 08:40] LABS: SGPT/ALT 123 U/L (13-61)
[2022-06-09 08:41] LABS: BILIRUBIN,TOTAL 1.6 mg/dL (0.2-1); TOT PROT 6.7 g/dl (6.4-8.2)
[2022-06-09 08:42] LABS: ALK PHOS 58 U/L (45-117)
[2022-06-09] MEDS: DEXTROSE 5%-0.45% SALINE 1,000 ML IV SCH ×3 (08:52→20:15)
[2022-06-09 08:57] LABS: BLOOD UREA NITROGEN 1.4 mg/dL (7-18)
[2022-06-09 09:04] LABS: BASO % 0.5 % (0-2.0); EOS % 0.3 % (0-4.5); HEMATOCRIT 33.5 % (35.4-49); HEMOGLOBIN 11.9 GM/dL (11.7-16.9); LYMPH % 42.7 % (8-40); MCH 32.7 pg (25.7-33.7); MCHC 35.5 g/dl (32.0-35.9); MEAN CELL VOLUME 92.3 fl (80-96); MEAN PLT VOLUME 8.9 fl (7.5-11.1); MONO % 7.6 % (3.8-10.2); NEUT % 48.9 % (42.8-82.8); PLATELET COUNT 276 10^3/uL (134-434); RBC 3.63 M/mm3 (4.00-5.60); RDW 16.7 % (11.9-15.9)
[2022-06-09] MEDS ORDERED: NIFEdipine E.R 60 MG TABLET PO SCH (10:00)
[2022-06-09] MEDS ORDERED: THIAMINE HCL 200 MG/2 ML VIAL IM SCH (10:00)
[2022-06-09] MEDS: FOLIC ACID 1 MG TABLET (FP) PO SCH (10:11)
[2022-06-09] MEDS: NIFEdipine E.R 60 MG TABLET PO SCH (10:11)
[2022-06-09] MEDS: MULTIVITAMINS (DAILY MVI) TABLET (FP) PO SCH (10:11)
[2022-06-09] MEDS: FAMOTIDINE 20 MG TABLET PO SCH (10:11)
[2022-06-10] MEDS: LIPASE/PROTEASE/AMYLASE 36,000 UNIT CAPSULE PO SCH ×3 (08:24→17:23)
[2022-06-10 09:14] LABS: BASO % 0.6 % (0-2.0); EOS % 0.7 % (0-4.5); HEMATOCRIT 35.5 % (35.4-49); HEMOGLOBIN 12.5 GM/dL (11.7-16.9); LYMPH % 53.5 % (8-40); MCH 32.9 pg (25.7-33.7); MCHC 35.2 g/dl (32.0-35.9); MEAN CELL VOLUME 93.6 fl (80-96); MEAN PLT VOLUME 9.2 fl (7.5-11.1); MONO % 7.5 % (3.8-10.2); NEUT % 37.7 % (42.8-82.8); PLATELET COUNT 288 10^3/uL (134-434); RBC 3.79 M/mm3 (4.00-5.60); RDW 16.8 % (11.9-15.9); WHITE BLOOD COUNT 3.6 K/mm3 (4.0-10.0)
[2022-06-10 09:37] LABS: CHLORIDE 99 mmol/L (98-107); SODIUM 134 mmol/L (136-145)
[2022-06-10] MEDS: FOLIC ACID 1 MG TABLET (FP) PO SCH (09:46)
[2022-06-10] MEDS: NIFEdipine E.R 60 MG TABLET PO SCH (09:46)
[2022-06-10] MEDS: MAGNESIUM OXIDE 400 MG TABLET (FP) PO SCH ×2 (09:46→22:01)
[2022-06-10 09:47] LABS: ALBUMIN 3.6 g/dl (3.4-5.0); ANION GAP 7 MMOL/L (8-16); CALCIUM 9.5 mg/dL (8.5-10.1); CO2 28 mmol/L (21-32); GLUCOSE,RANDOM 121 mg/dL (74-106); LIPASE 1040 U/L (73-393)
[2022-06-10] MEDS: THIAMINE HCL 200 MG/2 ML VIAL IVPB SCH (09:47)
[2022-06-10] MEDS: MULTIVITAMINS (DAILY MVI) TABLET (FP) PO SCH (09:47)
[2022-06-10] MEDS: FAMOTIDINE 20 MG TABLET PO SCH (09:47)
[2022-06-10] MEDS: DEXTROSE 5%-0.45% SALINE 1,000 ML IV SCH ×3 (09:47→18:34)
[2022-06-10] MEDS: METOPROLOL TARTRATE 50 MG TABLET (FP) PO SCH ×2 (09:47→22:01)
[2022-06-10] MEDS: HEPARIN NA (PORCINE) 5,000 UNITS/ML 1ML VIAL SQ SCH ×3 (09:47→22:02)
[2022-06-10 09:50] LABS: CREATININE 0.7 mg/dL (0.55-1.3); SGOT/AST 119 U/L (15-37); SGPT/ALT 107 U/L (13-61)
[2022-06-10 09:52] LABS: ALK PHOS 67 U/L (45-117); BILIRUBIN,TOTAL 0.9 mg/dL (0.2-1); TOT PROT 7.7 g/dl (6.4-8.2)
[2022-06-10 09:54] LABS: BLOOD UREA NITROGEN 1.6 mg/dL (7-18)
[2022-06-11] MEDS: DEXTROSE 5%-0.45% SALINE 1,000 ML IV SCH ×2 (02:55→10:55)
[2022-06-11] MEDS: ONDANSETRON 4 MG/2 ML VIAL IVPUSH PRN (02:55)
[2022-06-11] MEDS: LIPASE/PROTEASE/AMYLASE 36,000 UNIT CAPSULE PO SCH ×3 (08:23→16:35)
[2022-06-11] MEDS: HEPARIN NA (PORCINE) 5,000 UNITS/ML 1ML VIAL SQ SCH ×2 (10:51→22:04)
[2022-06-11] MEDS: MULTIVITAMINS (DAILY MVI) TABLET (FP) PO SCH (10:51)
[2022-06-11] MEDS: MAGNESIUM OXIDE 400 MG TABLET (FP) PO SCH ×2 (10:51→22:04)
[2022-06-11 10:52] LABS: BASO % 0.5 % (0-2.0); EOS % 1.1 % (0-4.5); HEMATOCRIT 31.9 % (35.4-49); HEMOGLOBIN 11.3 GM/dL (11.7-16.9); LYMPH % 48.4 % (8-40); MCHC 35.4 g/dl (32.0-35.9); MEAN CELL VOLUME 93.2 fl (80-96); MEAN PLT VOLUME 9.7 fl (7.5-11.1); PLATELET COUNT 292 10^3/uL (134-434); RBC 3.42 M/mm3 (4.00-5.60); RDW 16.6 % (11.9-15.9)
[2022-06-11] MEDS: THIAMINE HCL 200 MG/2 ML VIAL IVPB SCH (10:52)
[2022-06-11] MEDS: FOLIC ACID 1 MG TABLET (FP) PO SCH (10:52)
[2022-06-11] MEDS: METOPROLOL TARTRATE 50 MG TABLET (FP) PO SCH ×2 (10:52→22:04)
[2022-06-11] MEDS: FAMOTIDINE 20 MG TABLET PO SCH (10:52)
[2022-06-11] MEDS: POLYETHYLENE GLYCOL (HEALTHYLAX) 3350 17 GM PACKET PO SCH ×2 (10:52→22:04)
[2022-06-11] MEDS: NIFEdipine E.R 60 MG TABLET PO SCH (10:52)
[2022-06-11 11:05] LABS: CHLORIDE 104 mmol/L (98-107); SODIUM 138 mmol/L (136-145)
[2022-06-11 11:12] LABS: CALCIUM 9.3 mg/dL (8.5-10.1); LIPASE 1044 U/L (73-393)
[2022-06-11 11:13] LABS: ALBUMIN 3.4 g/dl (3.4-5.0); ANION GAP 5 MMOL/L (8-16); CO2 28 mmol/L (21-32); GLUCOSE,RANDOM 128 mg/dL (74-106)
[2022-06-11 11:22] LABS: CREATININE 0.7 mg/dL (0.55-1.3)
[2022-06-11 11:23] LABS: SGOT/AST 80 U/L (15-37)
[2022-06-11 11:24] LABS: BILIRUBIN,TOTAL 0.5 mg/dL (0.2-1); SGPT/ALT 92 U/L (13-61); TOT PROT 7.1 g/dl (6.4-8.2)
[2022-06-11 11:25] LABS: ALK PHOS 60 U/L (45-117)
[2022-06-11 11:35] LABS: BLOOD UREA NITROGEN 1.6 mg/dL (7-18)
[2022-06-11 15:11] VITALS: RESP 18
[2022-06-12] MEDS: DEXTROSE 5%-0.45% SALINE 1,000 ML IV SCH ×2 (08:33→12:14)
[2022-06-12] MEDS: LIPASE/PROTEASE/AMYLASE 36,000 UNIT CAPSULE PO SCH ×2 (08:42→12:14)
[2022-06-12] MEDS: FOLIC ACID 1 MG TABLET (FP) PO SCH (09:17)
[2022-06-12] MEDS: FAMOTIDINE 20 MG TABLET PO SCH (09:17)
[2022-06-12] MEDS: MULTIVITAMINS (DAILY MVI) TABLET (FP) PO SCH (09:17)
[2022-06-12] MEDS: NIFEdipine E.R 60 MG TABLET PO SCH (09:17)
[2022-06-12] MEDS: HEPARIN NA (PORCINE) 5,000 UNITS/ML 1ML VIAL SQ SCH ×2 (09:17→09:20)
[2022-06-12] MEDS: MAGNESIUM OXIDE 400 MG TABLET (FP) PO SCH (09:17)
[2022-06-12] MEDS: METOPROLOL TARTRATE 50 MG TABLET (FP) PO SCH (09:17)
[2022-06-12] MEDS: POLYETHYLENE GLYCOL (HEALTHYLAX) 3350 17 GM PACKET PO SCH (09:18)
[2022-06-12] MEDS: THIAMINE HCL 200 MG/2 ML VIAL IVPB SCH (09:18)
[2022-06-12 10:38] VITALS: BP 158/88; PULSE 63; TEMP 98.1
== END 2022-06-12 14:02 | disposition home or self-care (01) | DRG 440 ==
LOC: JER 17:30 → JERBED 06-08 06:31 → J6S 06-09 01:14
PROVIDERS: ADMIT Internal Medicine; ATTEND Internal Medicine
DX: K85.20 Alcohol induced acute pancreatitis without necrosis or infection (principal); I48.91 Unspecified atrial fibrillation; I10 Essential (primary) hypertension; K70.9 Alcoholic liver disease, unspecified
CPT/HCPCS: 0241U-QW; 36415; 71046-TC-FY; 74177-TC; 80053; 82962; 83605; 83690; 84478; 84484; 85025; 93005; 93010; 99285-25; J1644; Q9967

== ENCOUNTER 2022-06-24 13:10 | Observation (INO) | payer BC, OTHER ==
[2022-06-24 13:33] VITALS: BMI 22.8
[2022-06-24] MEDS ORDERED: FAMOTIDINE 20 MG/50 ML IVPB 20 MG/50 ML MG IVPB ONE ×2 (14:55→15:32)
[2022-06-24] MEDS ORDERED: MAG HYDROX/AL HYDROX/SIMETH -MYLANTA- ORAL SUSPENSION PO ONE (14:55)
[2022-06-24] MEDS ORDERED: MAG HYDROX/AL HYDROX/SIMETH 30 ML UNIT-DOSE CUP ONE (15:32)
[2022-06-24] MEDS ORDERED: morphine CARPU-JECT 4 MG/1 ML DISP.SYRIN IVPUSH ONE (15:54)
[2022-06-24] MEDS ORDERED: chlordiazePOXIDE HCL 25 MG CAPSULE PO ONE (15:54)
[2022-06-24] MEDS ORDERED: SODIUM CHLORIDE 1,000 ML IV ONE (15:55)
[2022-06-24 16:29] LABS: BASO % 0.8 % (0-2.0); EOS % 0.1 % (0-4.5); HEMATOCRIT 38.6 % (35.4-49); HEMOGLOBIN 13.5 GM/dL (11.7-16.9); LYMPH % 26.5 % (8-40); MCH 32.9 pg (25.7-33.7); MCHC 34.9 g/dl (32.0-35.9); MEAN CELL VOLUME 94.3 fl (80-96); MEAN PLT VOLUME 9.2 fl (7.5-11.1); MONO % 8.1 % (3.8-10.2); NEUT % 64.5 % (42.8-82.8); PLATELET COUNT 281 10^3/uL (134-434); RDW 15.7 % (11.9-15.9); WHITE BLOOD COUNT 4.9 K/mm3 (4.0-10.0)
[2022-06-24] MEDS ORDERED: chlordiazePOXIDE HCL 25 MG CAPSULE ONE ×2 (16:30→23:08)
[2022-06-24] MEDS ORDERED: morphine SULFATE 4 MG/ML VIAL ONE (16:30)
[2022-06-24 16:39] LABS: INR 1.02 (0.83-1.09); PROTHROMBIN TIME (PATIENT) 11.8 SEC (9.7-13.0)
[2022-06-24 16:42] LABS: ACTIVATED PTT 38.5 SECONDS (25.2-36.5)
[2022-06-24 16:53] LABS: POTASSIUM 4.4 mmol/L (3.5-5.1)
[2022-06-24 16:55] LABS: CALCIUM 9.8 mg/dL (8.5-10.1)
[2022-06-24 16:56] LABS: BLOOD UREA NITROGEN 11.7 mg/dL (7-18)
[2022-06-24 16:59] LABS: CREATININE 1.2 mg/dL (0.55-1.3)
[2022-06-24 17:01] LABS: BILIRUBIN,TOTAL 1.6 mg/dL (0.2-1)
[2022-06-24 17:15] LABS: ALBUMIN 4.8 g/dl (3.4-5.0); TOT PROT 9.6 g/dl (6.4-8.2)
[2022-06-24] MEDS ORDERED: DEXTROSE 5%-NORMAL SALINE 500 ML IV ONE (17:47)
[2022-06-24 19:12] LABS: VENOUS BASE EXCESS -16.9 mmol/L (-2-2); VENOUS O2 SATURATION 48.9 % (70-80); VENOUS PCO2 27.4 mmHg (38-52)
[2022-06-24 19:13] LABS: VENOUS PH 7.176 (7.310-7.410)
[2022-06-24] MEDS ORDERED: FOLIC ACID 1 MG TABLET (FP) PO ONE (19:57)
[2022-06-24] MEDS ORDERED: THIAMINE HCL 100 MG TABLET (FP) PO ONE (19:57)
[2022-06-24] MEDS ORDERED: MULTIVITAMINS (DAILY MVI) TABLET (FP) PO ONE (19:57)
[2022-06-24] MEDS ORDERED: THIAMINE HCL 100 MG TABLET (FP) ONE (20:02)
[2022-06-24] MEDS ORDERED: MULTIVITAMINS (DAILY MVI) TABLET (FP) ONE (20:02)
[2022-06-24] MEDS ORDERED: FOLIC ACID 1 MG TABLET (FP) ONE (20:02)
[2022-06-24] MEDS ORDERED: chlordiazePOXIDE HCL 25 MG CAPSULE PO PRN (22:52)
[2022-06-24] MEDS: DEXTROSE 5%-0.45% SALINE 1,000 ML IV SCH (23:14)
[2022-06-24] MEDS: chlordiazePOXIDE HCL 25 MG CAPSULE PO SCH (23:14)
[2022-06-25] MEDS ORDERED: PANTOPRAZOLE SODIUM 40 MG VIAL IVPUSH ONE (00:22)
[2022-06-25] MEDS ORDERED: PANTOPRAZOLE SODIUM 40 MG VIAL ONE (00:25)
[2022-06-25] MEDS ORDERED: ACETAMINOPHEN INJECTION 100 ML IVPB ONE ×2 (00:25→10:26)
[2022-06-25] MEDS: ACETAMINOPHEN 1000 MG/100 ML BAG IVPB PRN ×2 (00:30→21:19)
[2022-06-25 06:27] LABS: BASO % 0.5 % (0-2.0); EOS % 1.8 % (0-4.5); HEMATOCRIT 31.5 % (35.4-49); HEMOGLOBIN 11.2 GM/dL (11.7-16.9); LYMPH % 36.8 % (8-40); MCH 32.7 pg (25.7-33.7); MCHC 35.5 g/dl (32.0-35.9); MEAN CELL VOLUME 92.1 fl (80-96); MEAN PLT VOLUME 9.1 fl (7.5-11.1); MONO % 7.5 % (3.8-10.2); NEUT % 53.4 % (42.8-82.8); PLATELET COUNT 204 10^3/uL (134-434); RBC 3.42 M/mm3 (4.00-5.60); RDW 15.5 % (11.9-15.9)
[2022-06-25] MEDS ORDERED: chlordiazePOXIDE HCL 25 MG CAPSULE ONE ×2 (06:38→10:24)
[2022-06-25] MEDS: chlordiazePOXIDE HCL 25 MG CAPSULE PO SCH ×2 (06:41→10:37)
[2022-06-25 06:46] LABS: POTASSIUM 3.9 mmol/L (3.5-5.1)
[2022-06-25 06:50] LABS: ALBUMIN 3.8 g/dl (3.4-5.0); BLOOD UREA NITROGEN 6.6 mg/dL (7-18); CALCIUM 9.1 mg/dL (8.5-10.1)
[2022-06-25 06:53] LABS: CREATININE 1.1 mg/dL (0.55-1.3)
[2022-06-25] MEDS ORDERED: NALOXONE HCL 0.4 MG/ML VIAL ONE ×2 (06:54)
[2022-06-25 06:55] LABS: BILIRUBIN,TOTAL 1.5 mg/dL (0.2-1); TOT PROT 7.7 g/dl (6.4-8.2)
[2022-06-25] MEDS ORDERED: THIAMINE HCL 100 MG TABLET (FP) ONE (08:37)
[2022-06-25] MEDS ORDERED: FOLIC ACID 1 MG TABLET (FP) ONE (08:38)
[2022-06-25] MEDS ORDERED: HYDROCHLOROTHIAZIDE 25 MG TABLET (FP) PO SCH (10:00)
[2022-06-25] MEDS ORDERED: FOLIC ACID 1 MG TABLET (FP) PO SCH (10:00)
[2022-06-25] MEDS ORDERED: NIFEdipine E.R 60 MG TABLET PO SCH (10:00)
[2022-06-25] MEDS ORDERED: THIAMINE HCL 100 MG TABLET (FP) PO SCH (10:00)
[2022-06-25] MEDS ORDERED: NIFEdipine E.R 60 MG TABLET PO ONE (10:25)
[2022-06-25] MEDS ORDERED: HYDROCHLOROTHIAZIDE 25 MG TABLET (FP) ONE (10:25)
[2022-06-25] MEDS ORDERED: METOPROLOL TARTRATE 50 MG TABLET (FP) ONE (10:25)
[2022-06-25] MEDS ORDERED: MAGNESIUM OXIDE 400 MG TABLET (FP) ONE (10:25)
[2022-06-25] MEDS: METOPROLOL TARTRATE 50 MG TABLET (FP) PO SCH ×2 (10:37→21:19)
[2022-06-25] MEDS: MAGNESIUM OXIDE 400 MG TABLET (FP) PO SCH ×2 (10:38→21:19)
[2022-06-25] MEDS: LIPASE/PROTEASE/AMYLASE 36,000 UNIT CAPSULE PO SCH ×2 (11:11→18:19)
[2022-06-25] MEDS ORDERED: hydrALAZINE HCL 50 MG TABLET (FP) ONE (14:12)
[2022-06-25] MEDS: hydrALAZINE HCL 50 MG TABLET (FP) PO SCH ×2 (14:15→21:19)
[2022-06-25] MEDS ORDERED: LORazepam 2 MG/ML SDV VIAL IVPUSH PRN (16:25)
[2022-06-25] MEDS: DEXTROSE 5%-0.45% SALINE 1,000 ML IV SCH (21:18)
[2022-06-26] MEDS: DEXTROSE 5%-0.45% SALINE 1,000 ML IV SCH ×3 (00:53→18:55)
[2022-06-26] MEDS ORDERED: chlordiazePOXIDE HCL 25 MG CAPSULE PO SCH (05:00)
[2022-06-26] MEDS: hydrALAZINE HCL 50 MG TABLET (FP) PO SCH ×3 (05:30→21:03)
[2022-06-26] MEDS ORDERED: ACETAMINOPHEN 325 MG TABLET (FP) PO ONE (06:06)
[2022-06-26] MEDS ORDERED: LORazepam 2 MG/ML SDV VIAL IVPUSH PRN (08:39)
[2022-06-26] MEDS: LIPASE/PROTEASE/AMYLASE 36,000 UNIT CAPSULE PO SCH ×3 (08:52→17:35)
[2022-06-26] MEDS: MAGNESIUM OXIDE 400 MG TABLET (FP) PO SCH ×2 (09:43→21:03)
[2022-06-26] MEDS: FOLIC ACID 1 MG TABLET (FP) PO SCH (09:43)
[2022-06-26] MEDS: THIAMINE HCL 100 MG TABLET (FP) PO SCH (09:44)
[2022-06-26] MEDS ORDERED: PANTOPRAZOLE SODIUM 40 MG VIAL IVPUSH SCH (10:00)
[2022-06-26] MEDS ORDERED: ACETAMINOPHEN 1000 MG/100 ML BAG IVPB PRN (10:01)
[2022-06-26] MEDS: NIFEdipine E.R 60 MG TABLET PO SCH (10:43)
[2022-06-26] MEDS: HYDROCHLOROTHIAZIDE 25 MG TABLET (FP) PO SCH (10:43)
[2022-06-26] MEDS: METOPROLOL TARTRATE 50 MG TABLET (FP) PO SCH ×2 (10:44→21:03)
[2022-06-26] MEDS: PANTOPRAZOLE SODIUM 40 MG VIAL IVPUSH SCH (10:45)
[2022-06-27] MEDS ORDERED: chlordiazePOXIDE HCL 10 MG CAPSULE PO PRN
[2022-06-27] MEDS ORDERED: chlordiazePOXIDE HCL 10 MG CAPSULE PO SCH (05:00)
[2022-06-27] MEDS: hydrALAZINE HCL 50 MG TABLET (FP) PO SCH ×2 (05:17→14:37)
[2022-06-27] MEDS: LIPASE/PROTEASE/AMYLASE 36,000 UNIT CAPSULE PO SCH ×2 (08:41→12:21)
[2022-06-27] MEDS: NIFEdipine E.R 60 MG TABLET PO SCH (10:22)
[2022-06-27] MEDS: FOLIC ACID 1 MG TABLET (FP) PO SCH (10:22)
[2022-06-27] MEDS: DEXTROSE 5%-0.45% SALINE 1,000 ML IV SCH (10:23)
[2022-06-27] MEDS: THIAMINE HCL 100 MG TABLET (FP) PO SCH (10:23)
[2022-06-27] MEDS: HYDROCHLOROTHIAZIDE 25 MG TABLET (FP) PO SCH (10:23)
[2022-06-27] MEDS: PANTOPRAZOLE SODIUM 40 MG VIAL IVPUSH SCH (10:23)
[2022-06-27] MEDS: MAGNESIUM OXIDE 400 MG TABLET (FP) PO SCH (10:23)
[2022-06-27] MEDS: METOPROLOL TARTRATE 50 MG TABLET (FP) PO SCH (10:23)
[2022-06-27 15:34] VITALS: BP 120/65; PULSE 84; RESP 18; TEMP 98.8
[2022-06-28] MEDS ORDERED: chlordiazePOXIDE HCL 10 MG CAPSULE PO SCH (05:00)
[2022-06-29] MEDS ORDERED: chlordiazePOXIDE HCL 10 MG CAPSULE PO ONE (05:00)
== END 2022-06-27 15:51 | disposition other institution (70) ==
LOC: JER 13:10 → INTOOBSV 20:45 → JERBED 20:45 → UNDOADMOB 20:45 → JERBED 06-25 14:32 → J5S 06-25 20:55
PROVIDERS: ADMIT Internal Medicine; ATTEND Internal Medicine
PROC: 3E033GC Introduction of Other Therapeutic Substance into Peripheral Vein, Percutaneous Approach (ICD-10-PCS; principal; 2022-06-25)
PROC: 3E033NZ Introduction of Analgesics, Hypnotics, Sedatives into Peripheral Vein, Percutaneous Approach (ICD-10-PCS; 2022-06-25)
PROC: 3E0333Z Introduction of Anti-inflammatory into Peripheral Vein, Percutaneous Approach (ICD-10-PCS; 2022-06-25)
DX: E87.29 Other acidosis (principal); F10.10 Alcohol abuse, uncomplicated; I48.91 Unspecified atrial fibrillation; R07.9 Chest pain, unspecified
CPT/HCPCS: 0241U-QW; 36415; 71045-TC-FY; 74177-TC; 76705-TC; 80053; 80307; 82010; 82803; 83605; 83690; 83735; 84439; 84443; 84484; 85025; 85610; 85730; 93005; 93010; 96361; 96365; 96367; 96375; 99285-25; G0378; Q9967

== ENCOUNTER 2022-07-14 04:22 | Observation (INO) | payer OTHER ==
[2022-07-14] MEDS ORDERED: ONDANSETRON 4 MG/2 ML VIAL IVPUSH ONE (04:59)
[2022-07-14] MEDS ORDERED: MAG HYDROX/AL HYDROX/SIMETH 30 ML UNIT-DOSE CUP PO ONE (04:59)
[2022-07-14] MEDS ORDERED: ACETAMINOPHEN 1000 MG/100 ML BAG IVPB ONE (04:59)
[2022-07-14] MEDS ORDERED: FAMOTIDINE 20 MG/50 ML IVPB 20 MG/50 ML MG IVPB ONE ×2 (05:00→05:11)
[2022-07-14] MEDS ORDERED: LACTATED RINGERS SOLUTION 1000 ML INFUS.BAG IV ONE ×2 (05:07→10:22)
[2022-07-14] MEDS ORDERED: ONDANSETRON 4 MG/2 ML VIAL ONE (05:11)
[2022-07-14] MEDS ORDERED: MAG HYDROX/AL HYDROX/SIMETH 30 ML UNIT-DOSE CUP ONE (05:11)
[2022-07-14] MEDS ORDERED: ACETAMINOPHEN INJECTION 100 ML IVPB ONE (05:11)
[2022-07-14 06:38] LABS: BASO % 0.6 % (0-2.0); EOS % 0.5 % (0-4.5); HEMATOCRIT 35.4 % (35.4-49); HEMOGLOBIN 12.5 GM/dL (11.7-16.9); LYMPH % 75.5 % (8-40); MCH 33.4 pg (25.7-33.7); MCHC 35.3 g/dl (32.0-35.9); MEAN CELL VOLUME 94.8 fl (80-96); MONO % 5.1 % (3.8-10.2); NEUT % 18.3 % (42.8-82.8); PLATELET COUNT 241 10^3/uL (134-434); RBC 3.73 M/mm3 (4.00-5.60); RDW 18.2 % (11.9-15.9); WHITE BLOOD COUNT 3.5 K/mm3 (4.0-10.0)
[2022-07-14 06:58] LABS: POTASSIUM 3.9 mmol/L (3.5-5.1)
[2022-07-14 07:01] LABS: ALBUMIN 4.3 g/dl (3.4-5.0); BLOOD UREA NITROGEN 6.2 mg/dL (7-18); MAGNESIUM 1.9 mg/dL (1.8-2.4)
[2022-07-14 07:04] LABS: CREATININE 0.8 mg/dL (0.55-1.3)
[2022-07-14 07:05] LABS: TOT PROT 8.3 g/dl (6.4-8.2)
[2022-07-14 07:46] LABS: CALCIUM 9.5 mg/dL (8.5-10.1)
[2022-07-14] MEDS ORDERED: morphine CARPU-JECT 4 MG/1 ML DISP.SYRIN IVPUSH ONE (07:50)
[2022-07-14] MEDS ORDERED: morphine SULFATE 4 MG/ML VIAL ONE (07:53)
[2022-07-14 08:44] LABS: ANISOCYTOSIS 0; HELMET CELLS 0; HOWELL-JOLLY BODIES 0; MACROCYTOSIS 0; OVALOCYTE 0; ROULEAU 0; SICKELED CELLS 0; TARGET CELLS 0; TEAR DROP CELLS 0; TOXIC GRANULATION 0
[2022-07-14] MEDS ORDERED: morphine CARPU-JECT 2 MG/1 ML DISP.SYRIN IVPUSH ONE (13:31)
[2022-07-14] MEDS ORDERED: METOPROLOL TARTRATE 50 MG TABLET (FP) PO ONE (17:22)
[2022-07-14] MEDS ORDERED: METOPROLOL TARTRATE 50 MG TABLET (FP) ONE (17:23)
[2022-07-14] MEDS ORDERED: ONDANSETRON 4 MG/2 ML VIAL IVPUSH PRN (17:35)
[2022-07-14] MEDS ORDERED: SODIUM CHLORIDE 1,000 ML IV SCH (17:45)
[2022-07-14] MEDS: LORazepam 2 MG/ML SDV VIAL IVPUSH PRN (18:09)
[2022-07-14] MEDS: morphine SULFATE 4 MG/ML VIAL IVPUSH PRN (18:14)
[2022-07-14 18:29] VITALS: BMI 24.9
[2022-07-14] MEDS: hydrALAZINE HCL 50 MG TABLET (FP) PO SCH (21:51)
[2022-07-14] MEDS: PANTOPRAZOLE SODIUM 40 MG VIAL IVPUSH SCH (21:51)
[2022-07-14] MEDS: HEPARIN NA (PORCINE) 5,000 UNITS/ML 1ML VIAL SQ SCH (21:51)
[2022-07-14] MEDS: MAGNESIUM OXIDE 400 MG TABLET (FP) PO SCH (21:51)
[2022-07-14] MEDS: METOPROLOL TARTRATE 50 MG TABLET (FP) PO SCH (21:51)
[2022-07-15] MEDS: morphine SULFATE 4 MG/ML VIAL IVPUSH PRN ×2 (02:47→10:13)
[2022-07-15] MEDS: hydrALAZINE HCL 50 MG TABLET (FP) PO SCH ×3 (05:30→23:15)
[2022-07-15] MEDS: THIAMINE HCL 200 MG/2 ML VIAL IVPB SCH (10:12)
[2022-07-15] MEDS: FOLIC ACID 1 MG TABLET (FP) PO SCH (10:13)
[2022-07-15] MEDS: MAGNESIUM OXIDE 400 MG TABLET (FP) PO SCH ×2 (10:13→23:15)
[2022-07-15] MEDS: PANTOPRAZOLE SODIUM 40 MG VIAL IVPUSH SCH ×2 (10:13→23:15)
[2022-07-15] MEDS: HEPARIN NA (PORCINE) 5,000 UNITS/ML 1ML VIAL SQ SCH ×2 (10:13→23:15)
[2022-07-15] MEDS: NIFEdipine E.R 60 MG TABLET PO SCH (10:14)
[2022-07-15] MEDS: METOPROLOL TARTRATE 50 MG TABLET (FP) PO SCH ×2 (10:14→23:15)
[2022-07-15] MEDS: LIPASE/PROTEASE/AMYLASE 36,000 UNIT CAPSULE PO SCH ×3 (10:31→17:02)
[2022-07-15] MEDS: LORazepam 2 MG/ML SDV VIAL IVPUSH PRN (16:40)
[2022-07-15] MEDS: ACETAMINOPHEN 325 MG TABLET (FP) PO PRN (17:02)
[2022-07-16] MEDS: LORazepam 2 MG/ML SDV VIAL IVPUSH PRN ×2 (00:26→13:12)
[2022-07-16] MEDS: ACETAMINOPHEN 325 MG TABLET (FP) PO PRN (00:26)
[2022-07-16] MEDS: hydrALAZINE HCL 50 MG TABLET (FP) PO SCH ×3 (06:00→22:03)
[2022-07-16] MEDS: LIPASE/PROTEASE/AMYLASE 36,000 UNIT CAPSULE PO SCH ×3 (08:18→17:15)
[2022-07-16] MEDS: FOLIC ACID 1 MG TABLET (FP) PO SCH (10:06)
[2022-07-16] MEDS: METOPROLOL TARTRATE 50 MG TABLET (FP) PO SCH ×2 (10:08→22:03)
[2022-07-16] MEDS: THIAMINE HCL 200 MG/2 ML VIAL IVPB SCH (10:08)
[2022-07-16] MEDS: MAGNESIUM OXIDE 400 MG TABLET (FP) PO SCH ×2 (10:08→22:03)
[2022-07-16] MEDS: NIFEdipine E.R 60 MG TABLET PO SCH (10:08)
[2022-07-16] MEDS: PANTOPRAZOLE SODIUM 40 MG VIAL IVPUSH SCH ×2 (10:11→22:03)
[2022-07-16] MEDS: HEPARIN NA (PORCINE) 5,000 UNITS/ML 1ML VIAL SQ SCH ×2 (10:12→22:03)
[2022-07-17] MEDS: LORazepam 2 MG/ML SDV VIAL IVPUSH PRN ×2 (01:27→09:47)
[2022-07-17] MEDS: ACETAMINOPHEN 325 MG TABLET (FP) PO PRN (01:28)
[2022-07-17] MEDS ORDERED: ACETAMINOPHEN 1000 MG/100 ML BAG IVPB PRN (03:41)
[2022-07-17] MEDS: hydrALAZINE HCL 50 MG TABLET (FP) PO SCH ×2 (07:10→14:41)
[2022-07-17] MEDS: LIPASE/PROTEASE/AMYLASE 36,000 UNIT CAPSULE PO SCH ×2 (09:37→12:14)
[2022-07-17] MEDS: MAGNESIUM OXIDE 400 MG TABLET (FP) PO SCH (09:37)
[2022-07-17] MEDS: PANTOPRAZOLE SODIUM 40 MG VIAL IVPUSH SCH (09:37)
[2022-07-17] MEDS: HEPARIN NA (PORCINE) 5,000 UNITS/ML 1ML VIAL SQ SCH ×2 (09:37→10:33)
[2022-07-17] MEDS: THIAMINE HCL 200 MG/2 ML VIAL IVPB SCH (09:37)
[2022-07-17] MEDS: FOLIC ACID 1 MG TABLET (FP) PO SCH (09:37)
[2022-07-17] MEDS: METOPROLOL TARTRATE 50 MG TABLET (FP) PO SCH (09:37)
[2022-07-17] MEDS: NIFEdipine E.R 60 MG TABLET PO SCH (09:37)
[2022-07-17 12:30] VITALS: RESP 16
[2022-07-17 13:27] VITALS: TEMP 98.5
[2022-07-17 15:17] VITALS: BP 127/87; PULSE 83
[2022-07-17] MEDS ORDERED: PANTOPRAZOLE 40 MG TABLET PO SCH (22:00)
== END 2022-07-17 16:20 | disposition home or self-care (01) ==
LOC: JER 04:22 → UNDOADMOB 10:37 → JERBED 10:37 → INTOOBSV 10:37 → JERBED 14:53 → J7W 17:36
PROVIDERS: ADMIT Internal Medicine; ATTEND Internal Medicine
PROC: 3E033NZ Introduction of Analgesics, Hypnotics, Sedatives into Peripheral Vein, Percutaneous Approach (ICD-10-PCS; principal; 2022-07-14)
PROC: 3E033GC Introduction of Other Therapeutic Substance into Peripheral Vein, Percutaneous Approach (ICD-10-PCS; 2022-07-14)
PROC: 3E0337Z Introduction of Electrolytic and Water Balance Substance into Peripheral Vein, Percutaneous Approach (ICD-10-PCS; 2022-07-14)
PROC: 3E033NZ Introduction of Analgesics, Hypnotics, Sedatives into Peripheral Vein, Percutaneous Approach (ICD-10-PCS; 2022-07-14)
PROC: 3E0337Z Introduction of Electrolytic and Water Balance Substance into Peripheral Vein, Percutaneous Approach (ICD-10-PCS; 2022-07-14)
DX: R94.5 Abnormal results of liver function studies (principal); F10.99 Alcohol use, unspecified with unspecified alcohol-induced disorder; K70.9 Alcoholic liver disease, unspecified; F10.939 Alcohol use, unspecified with withdrawal, unspecified; K85.20 Alcohol induced acute pancreatitis without necrosis or infection; G89.29 Other chronic pain; I48.91 Unspecified atrial fibrillation; I10 Essential (primary) hypertension; M54.50 Low back pain, unspecified; R79.89 Other specified abnormal findings of blood chemistry; E80.6 Other disorders of bilirubin metabolism; Z91.013 Allergy to seafood
CPT/HCPCS: 0241U-QW; 36415; 71275-TC; 74174-TC; 80053; 83690; 83735; 85025; 93005; 93010; 96361; 96365; 96375; 96376; 97116-GP; 97161-GP; 99285-25; G0378; J1644; Q9967

== ENCOUNTER 2022-08-04 04:15 | Inpatient (IN) | payer BC, OTHER ==
[2022-08-04] MEDS ORDERED: ACETAMINOPHEN 1000 MG/100 ML BAG IVPB ONE (04:49)
[2022-08-04] MEDS ORDERED: SODIUM CHLORIDE 0.9% 500 ML INFUS.BAG IV ONE (04:49)
[2022-08-04] MEDS ORDERED: FAMOTIDINE 20 MG/50 ML IVPB 20 MG/50 ML MG IVPB ONE ×2 (04:49→05:28)
[2022-08-04] MEDS ORDERED: ONDANSETRON 4 MG/2 ML VIAL IVPUSH ONE (04:51)
[2022-08-04] MEDS ORDERED: ONDANSETRON 4 MG/2 ML VIAL ONE (05:27)
[2022-08-04] MEDS ORDERED: ACETAMINOPHEN INJECTION 100 ML IVPB ONE (05:27)
[2022-08-04 05:56] LABS: HEMATOCRIT 43.2 % (35.4-49); MEAN PLT VOLUME 8.8 fl (7.5-11.1); WHITE BLOOD COUNT 5.9 K/mm3 (4.0-10.0)
[2022-08-04 05:59] LABS: HEMOGLOBIN 14.8 GM/dL (11.7-16.9); MCH 34.5 pg (25.7-33.7); MCHC 34.3 g/dl (32.0-35.9); MEAN CELL VOLUME 100.7 fl (80-96); PLATELET COUNT 289 10^3/uL (134-434); RBC 4.29 M/mm3 (4.00-5.60); RDW 16.3 % (11.9-15.9)
[2022-08-04] MEDS ORDERED: morphine CARPU-JECT 2 MG/1 ML DISP.SYRIN IVPUSH ONE ×2 (06:20→09:33)
[2022-08-04 07:38] LABS: POTASSIUM 5.8 mmol/L (3.5-5.1)
[2022-08-04 07:40] LABS: CALCIUM 8.7 mg/dL (8.5-10.1)
[2022-08-04 07:41] LABS: BLOOD UREA NITROGEN 14.5 mg/dL (7-18)
[2022-08-04 07:44] LABS: CREATININE 1.7 mg/dL (0.55-1.3)
[2022-08-04 07:45] LABS: BILIRUBIN,TOTAL 1.3 mg/dL (0.2-1); TOT PROT 9.8 g/dl (6.4-8.2)
[2022-08-04] MEDS ORDERED: LORazepam 2 MG/ML SDV VIAL IVPUSH ONE ×3 (07:55→17:59)
[2022-08-04 08:00] LABS: LACTIC ACID 13.2 mmol/L (0.4-2.0)
[2022-08-04] MEDS ORDERED: SODIUM CHLORIDE 1,000 ML IV STA (08:02)
[2022-08-04] MEDS ORDERED: INSULIN REGULAR HUMAN 100 UNITS/ML *VIAL IVPUSH ONE (08:03)
[2022-08-04] MEDS ORDERED: DEXTROSE 50%-WATER - 25 GM/50 ML VIAL IVPUSH ONE (08:03)
[2022-08-04] MEDS ORDERED: DEXTROSE 50%-WATER 25 GM/50 ML DISP.SYRIN ONE (08:29)
[2022-08-04] MEDS ORDERED: morphine CARPU-JECT 4 MG/1 ML DISP.SYRIN IVPUSH ONE (08:58)
[2022-08-04 09:54] LABS: VENOUS BASE EXCESS -24.1 mmol/L (-2-2); VENOUS O2 SATURATION 61.6 % (70-80); VENOUS PCO2 24.2 mmHg (38-52)
[2022-08-04 09:56] LABS: VENOUS PH 7.001 (7.310-7.410)
[2022-08-04 10:09] LABS: LACTIC ACID 13.1 mmol/L (0.4-2.0)
[2022-08-04] MEDS ORDERED: LACTATED RINGERS SOLUTION 1,000 ML/1,000 ML INFUS.BAG IV STA (10:11)
[2022-08-04 10:12] LABS: POTASSIUM 5.5 mmol/L (3.5-5.1)
[2022-08-04 10:13] LABS: CALCIUM 7.9 mg/dL (8.5-10.1)
[2022-08-04 10:14] LABS: BLOOD UREA NITROGEN 12.2 mg/dL (7-18)
[2022-08-04] MEDS ORDERED: DEXTROSE 5%-0.45% SALINE 1,000 ML IV SCH ×2 (10:15→13:12)
[2022-08-04 10:17] LABS: CREATININE 1.3 mg/dL (0.55-1.3)
[2022-08-04] MEDS ORDERED: HYDROmorphone HCl 2 MG/ML VIAL ONE (10:21)
[2022-08-04 10:22] LABS: ANISOCYTOSIS 1+; MACROCYTOSIS 1+
[2022-08-04] MEDS ORDERED: SODIUM BICARBONATE 8.4% 50 MEQ/50 ML DISP.SYRIN IVPUSH ONE ×2 (10:44→10:46)
[2022-08-04] MEDS ORDERED: SODIUM BICARBONATE 8.4% 50 MEQ/50 ML DISP.SYRIN ONE (10:49)
[2022-08-04] MEDS ORDERED: HYDROmorphone HCl 2 MG/ML VIAL IVPUSH ONE (10:49)
[2022-08-04 11:27] LABS: EPI CELLS 2 /uL (0-25.1); HYALINE CASTS 0 /uL (0-3.1); URINE APPEARANCE CLEAR; URINE BACTERIA 1 /uL (0-1359); URINE BILIRUBIN NEGATIVE (NEGATIVE); URINE COLOR YELLOW; URINE GLUCOSE (UA) NEGATIVE (NEGATIVE); URINE KETONE 3+ (NEGATIVE); URINE LEUK ESTERASE NEGATIVE (NEGATIVE); URINE NITRITE NEGATIVE (NEGATIVE); URINE PROTEIN 1+ (NEGATIVE); URINE RBC 7 /uL (0-23.9); URINE UROBILINOGEN 0.2 mg/dL (0.2-1.0); URINE WBC 1 /uL (0-25.8)
[2022-08-04] MEDS ORDERED: DEXTROSE 50%-WATER - 25 GM/50 ML VIAL IVPUSH PRN (11:29)
[2022-08-04 11:41] LABS: COCAINE, UR NEGATIVE (NEGATIVE); URINE BARBITURATES NEGATIVE (NEGATIVE)
[2022-08-04 11:42] LABS: METHADONE, UR NEGATIVE (NEGATIVE); PHENCYCLIDINE,URINE NEGATIVE (NEGATIVE); URINE AMPHETAMINES NEGATIVE (NEGATIVE); URINE BENZODIAZEPINES NEGATIVE (NEGATIVE)
[2022-08-04 11:48] LABS: OPIATES, URI POSITIVE (NEGATIVE)
[2022-08-04 11:56] LABS: POTASSIUM 5.1 mmol/L (3.5-5.1)
[2022-08-04 11:58] LABS: CALCIUM 7.6 mg/dL (8.5-10.1)
[2022-08-04 11:59] LABS: BLOOD UREA NITROGEN 10.2 mg/dL (7-18)
[2022-08-04] MEDS ORDERED: INSULIN REGULAR 100 UNITS in SODIUM CHLORIDE 99 ML IVPB SCH (12:00)
[2022-08-04 12:02] LABS: CREATININE 1.2 mg/dL (0.55-1.3)
[2022-08-04 12:42] LABS: ARTERIAL BLD GAS O2 SATURATION 67.4 % (95-98); ARTERIAL BLOOD GAS PO2 40.7 mmHg (80-100); ARTERIAL BLOOD GAS pH 7.228 (7.350-7.450)
[2022-08-04 12:44] LABS: ALLENS TEST POSITIVE
[2022-08-04] MEDS: HYDROmorphone HCl 2 MG/ML VIAL IVPUSH PRN ×3 (13:15→22:28)
[2022-08-04] MEDS ORDERED: THIAMINE HCL 200 MG/2 ML VIAL IVPB SCH (14:45)
[2022-08-04] MEDS ORDERED: DEXMEDETOMIDINE PREMIX 400 MCG/100 ML BAG IVPB SCH (16:30)
[2022-08-04 17:03] LABS: CHLORIDE 99 mmol/L (98-107); SODIUM 135 mmol/L (136-145)
[2022-08-04 17:06] LABS: ALBUMIN 4.2 g/dl (3.4-5.0); ANION GAP 19 MMOL/L (8-16); BLOOD UREA NITROGEN 6.6 mg/dL (7-18); CO2 17 mmol/L (21-32); GLUCOSE,RANDOM 154 mg/dL (74-106); MAGNESIUM 1.5 mg/dL (1.8-2.4)
[2022-08-04 17:08] LABS: SGPT/ALT 42 U/L (13-61)
[2022-08-04 17:09] LABS: PHOSPHOROUS 1.4 mg/dL (2.5-4.9); SGOT/AST 119 U/L (15-37)
[2022-08-04 17:10] LABS: BILIRUBIN,TOTAL 1.5 mg/dL (0.2-1)
[2022-08-04 17:11] LABS: ALK PHOS 68 U/L (45-117)
[2022-08-04] MEDS ORDERED: MAGNESIUM SULFATE IN WATER 2 GM/50 ML IVPB IVPB ONE (17:15)
[2022-08-04 17:31] LABS: LACTIC ACID 2.2 mmol/L (0.4-2.0); TOT PROT 7.6 g/dl (6.4-8.2)
[2022-08-04] MEDS: DEXTROSE 5%-0.45% SALINE 1,000 ML IV SCH ×2 (17:47→23:42)
[2022-08-04] MEDS: MUPIROCIN 2% TOPICAL OINTMENT FOR DECOLONIZATION NS SCH ×2 (17:47→21:18)
[2022-08-04] MEDS: ENOXAPARIN NA (PORCINE) 30 MG/0.3 ML DISP.SYRIN SQ SCH (17:50)
[2022-08-04] MEDS ORDERED: POTASSIUM PHOSPHATE 30 MM in SODIUM CHLORIDE 500 ML IVPB ONE (18:00)
[2022-08-04] MEDS: THIAMINE HCL 200 MG/2 ML VIAL IVPB SCH (21:15)
[2022-08-04 21:43] LABS: POTASSIUM 4.1 mmol/L (3.5-5.1)
[2022-08-04 21:45] LABS: CALCIUM 8.1 mg/dL (8.5-10.1)
[2022-08-04 21:46] LABS: ALBUMIN 3.9 g/dl (3.4-5.0); BLOOD UREA NITROGEN 4.2 mg/dL (7-18)
[2022-08-04 21:47] LABS: VENOUS BASE EXCESS -2.1 mmol/L (-2-2); VENOUS O2 SATURATION 66.6 % (70-80); VENOUS PH 7.375 (7.310-7.410)
[2022-08-04 21:49] LABS: CREATININE 0.9 mg/dL (0.55-1.3)
[2022-08-04 21:50] LABS: BILIRUBIN,TOTAL 1.4 mg/dL (0.2-1); TOT PROT 6.9 g/dl (6.4-8.2)
[2022-08-04] MEDS ORDERED: CHLORHEXIDINE GLUCONATE 4% CLEANSER FOR DECOLONIZATION TP SCH (22:00)
[2022-08-04] MEDS ORDERED: LORazepam 2 MG/ML SDV VIAL IVPUSH PRN (23:27)
[2022-08-05] MEDS: HYDROmorphone HCl 2 MG/ML VIAL IVPUSH PRN ×4 (02:03→21:42)
[2022-08-05 05:11] LABS: CREATININE, URINE RANDOM 53.9 mg/dL (30-150)
[2022-08-05] MEDS: THIAMINE HCL 200 MG/2 ML VIAL IVPB SCH ×3 (05:19→21:02)
[2022-08-05] MEDS: DEXTROSE 5%-0.45% SALINE 1,000 ML IV SCH (06:19)
[2022-08-05 07:41] LABS: CHLORIDE 97 mmol/L (98-107); POTASSIUM 3.4 mmol/L (3.5-5.1); SODIUM 135 mmol/L (136-145)
[2022-08-05 07:45] LABS: ANION GAP 12 MMOL/L (8-16); CALCIUM 8.4 mg/dL (8.5-10.1); CO2 26 mmol/L (21-32); MAGNESIUM 1.8 mg/dL (1.8-2.4)
[2022-08-05 07:46] LABS: GLUCOSE,RANDOM 225 mg/dL (74-106)
[2022-08-05 07:49] LABS: CREATININE 0.9 mg/dL (0.55-1.3)
[2022-08-05 08:21] LABS: BLOOD UREA NITROGEN 2.1 mg/dL (7-18); PHOSPHOROUS 0.9 mg/dL (2.5-4.9)
[2022-08-05] MEDS ORDERED: SODIUM PHOSPHATE - 30 MM in SODIUM CHLORIDE 250 ML IVPB ONE (08:38)
[2022-08-05] MEDS ORDERED: NAPH,MB-DB/K PH,MBDB POWDER PACKET PO SCH (08:39)
[2022-08-05] MEDS: ENOXAPARIN NA (PORCINE) 30 MG/0.3 ML DISP.SYRIN SQ SCH ×2 (09:02→09:18)
[2022-08-05] MEDS: MUPIROCIN 2% TOPICAL OINTMENT FOR DECOLONIZATION NS SCH ×2 (09:03→21:08)
[2022-08-05 09:26] LABS: BASO % 0.2 % (0-2.0); HEMATOCRIT 34.2 % (35.4-49); HEMOGLOBIN 11.8 GM/dL (11.7-16.9); LYMPH % 13.3 % (8-40); MCHC 34.3 g/dl (32.0-35.9); MEAN CELL VOLUME 96.1 fl (80-96); MEAN PLT VOLUME 9.1 fl (7.5-11.1); MONO % 7.9 % (3.8-10.2); NEUT % 78.6 % (42.8-82.8); PLATELET COUNT 167 10^3/uL (134-434); RBC 3.56 M/mm3 (4.00-5.60); WHITE BLOOD COUNT 4.8 K/mm3 (4.0-10.0)
[2022-08-05 09:52] LABS: AMYLASE 137 U/L (25-115)
[2022-08-05] MEDS ORDERED: ONDANSETRON 4 MG/2 ML VIAL IVPUSH PRN ×2 (09:54→12:18)
[2022-08-05 09:55] LABS: LIPASE 1023 U/L (73-393)
[2022-08-05] MEDS ORDERED: LACTATED RINGERS SOLUTION 1,000 ML/1,000 ML INFUS.BAG IV SCH (10:00)
[2022-08-05] MEDS: LACTATED RINGERS SOLUTION 1,000 ML/1,000 ML INFUS.BAG IV SCH ×3 (11:30→22:23)
[2022-08-05] MEDS ORDERED: NIFEdipine E.R 60 MG TABLET PO SCH (11:30)
[2022-08-05] MEDS ORDERED: METOPROLOL TARTRATE 50 MG TABLET (FP) PO SCH (11:30)
[2022-08-05] MEDS ORDERED: DEXTROSE 50%-WATER 25 GM/50 ML DISP.SYRIN IVPUSH PRN (12:18)
[2022-08-05] MEDS: NAPH,MB-DB/K PH,MBDB POWDER PACKET PO SCH ×2 (13:33→21:03)
[2022-08-05] MEDS: hydrALAZINE HCL 50 MG TABLET (FP) PO SCH ×2 (15:30→21:03)
[2022-08-05] MEDS ORDERED: LOSARTAN POTASSIUM 50 MG TABLET PO ONE (16:14)
[2022-08-05] MEDS: LORazepam 2 MG/ML SDV VIAL IVPUSH PRN (16:34)
[2022-08-05 20:31] LABS: CHLORIDE 102 mmol/L (98-107); SODIUM 140 mmol/L (136-145)
[2022-08-05 20:32] LABS: CALCIUM 9.4 mg/dL (8.5-10.1)
[2022-08-05 20:33] LABS: ANION GAP 11 MMOL/L (8-16); CO2 27 mmol/L (21-32); GLUCOSE,RANDOM 159 mg/dL (74-106)
[2022-08-05 20:36] LABS: CREATININE 0.8 mg/dL (0.55-1.3)
[2022-08-05 20:51] LABS: BLOOD UREA NITROGEN 1.2 mg/dL (7-18)
[2022-08-05] MEDS: METOPROLOL TARTRATE 50 MG TABLET (FP) PO SCH (21:03)
[2022-08-05] MEDS: CHLORHEXIDINE GLUCONATE 4% CLEANSER FOR DECOLONIZATION TP SCH (21:08)
[2022-08-06] MEDS: HYDROmorphone HCl 2 MG/ML VIAL IVPUSH PRN ×3 (00:47→09:15)
[2022-08-06] MEDS: LACTATED RINGERS SOLUTION 1,000 ML/1,000 ML INFUS.BAG IV SCH ×4 (01:49→18:05)
[2022-08-06] MEDS ORDERED: POTASSIUM CHLORIDE ORAL LIQUID 20 MEQ/15 ML PO ONE (02:00)
[2022-08-06] MEDS: NAPH,MB-DB/K PH,MBDB POWDER PACKET PO SCH ×3 (05:20→22:55)
[2022-08-06] MEDS: THIAMINE HCL 200 MG/2 ML VIAL IVPB SCH ×3 (05:20→22:45)
[2022-08-06] MEDS: hydrALAZINE HCL 50 MG TABLET (FP) PO SCH ×3 (05:20→22:57)
[2022-08-06] MEDS: LORazepam 2 MG/ML SDV VIAL IVPUSH PRN (06:49)
[2022-08-06 07:09] LABS: BASO % 0.3 % (0-2.0); EOS % 0.1 % (0-4.5); HEMATOCRIT 33.2 % (35.4-49); HEMOGLOBIN 11.6 GM/dL (11.7-16.9); LYMPH % 32.5 % (8-40); MCH 33.6 pg (25.7-33.7); MCHC 35.1 g/dl (32.0-35.9); MEAN CELL VOLUME 95.9 fl (80-96); MONO % 8.6 % (3.8-10.2); NEUT % 58.5 % (42.8-82.8); PLATELET COUNT 155 10^3/uL (134-434); RBC 3.46 M/mm3 (4.00-5.60); RDW 16.2 % (11.9-15.9); WHITE BLOOD COUNT 4.4 K/mm3 (4.0-10.0)
[2022-08-06 07:31] LABS: CHLORIDE 106 mmol/L (98-107); POTASSIUM 3.5 mmol/L (3.5-5.1); SODIUM 140 mmol/L (136-145)
[2022-08-06 07:37] LABS: CALCIUM 9.2 mg/dL (8.5-10.1)
[2022-08-06 07:38] LABS: ALBUMIN 3.4 g/dl (3.4-5.0); ANION GAP 5 MMOL/L (8-16); BLOOD UREA NITROGEN < 1.0 mg/dL (7-18); CO2 30 mmol/L (21-32); GLUCOSE,RANDOM 127 mg/dL (74-106); MAGNESIUM 1.7 mg/dL (1.8-2.4)
[2022-08-06 07:41] LABS: CREATININE 0.6 mg/dL (0.55-1.3); SGOT/AST 40 U/L (15-37); SGPT/ALT 28 U/L (13-61)
[2022-08-06 07:42] LABS: BILIRUBIN,TOTAL 1.5 mg/dL (0.2-1); TOT PROT 6.9 g/dl (6.4-8.2)
[2022-08-06 07:44] LABS: ALK PHOS 64 U/L (45-117)
[2022-08-06] MEDS: METOPROLOL TARTRATE 50 MG TABLET (FP) PO SCH ×2 (09:06→22:54)
[2022-08-06] MEDS: MUPIROCIN 2% TOPICAL OINTMENT FOR DECOLONIZATION NS SCH ×2 (09:07→23:14)
[2022-08-06] MEDS ORDERED: ENOXAPARIN NA (PORCINE) 30 MG/0.3 ML DISP.SYRIN SQ SCH (10:00)
[2022-08-06] MEDS ORDERED: NIFEdipine E.R 60 MG TABLET PO SCH (10:00)
[2022-08-06] MEDS ORDERED: chlordiazePOXIDE HCL 25 MG CAPSULE PO PRN (10:27)
[2022-08-06] MEDS: chlordiazePOXIDE HCL 25 MG CAPSULE PO SCH ×3 (10:37→22:54)
[2022-08-06] MEDS: LOSARTAN POTASSIUM 50 MG TABLET PO SCH (11:13)
[2022-08-06] MEDS ORDERED: MAGNESIUM SULF 50% (8.12 MEQ/2 ML-1 GM VIAL) IVPB ONE (11:44)
[2022-08-06] MEDS: KETOROLAC TROMETHAMINE 30 MG/1 ML VIAL IM PRN ×2 (13:13→23:34)
[2022-08-06] MEDS: CHLORHEXIDINE GLUCONATE 4% CLEANSER FOR DECOLONIZATION TP SCH (23:14)
[2022-08-07] MEDS: KETOROLAC TROMETHAMINE 30 MG/1 ML VIAL IM PRN ×3 (00:40→18:27)
[2022-08-07] MEDS: chlordiazePOXIDE HCL 25 MG CAPSULE PO SCH ×4 (05:54→22:34)
[2022-08-07] MEDS: hydrALAZINE HCL 50 MG TABLET (FP) PO SCH ×3 (05:55→21:33)
[2022-08-07] MEDS: NAPH,MB-DB/K PH,MBDB POWDER PACKET PO SCH ×3 (05:55→21:33)
[2022-08-07] MEDS ORDERED: LORazepam 2 MG/ML SDV VIAL IVPUSH PRN (07:28)
[2022-08-07] MEDS ORDERED: ONDANSETRON 4 MG/2 ML VIAL IVPUSH PRN (07:28)
[2022-08-07] MEDS ORDERED: DEXTROSE 50%-WATER 25 GM/50 ML DISP.SYRIN IVPUSH PRN (07:28)
[2022-08-07 08:51] LABS: BASO % 0.2 % (0-2.0); EOS % 1.3 % (0-4.5); HEMATOCRIT 35.9 % (35.4-49); HEMOGLOBIN 12.5 GM/dL (11.7-16.9); LYMPH % 41.2 % (8-40); MCH 33.3 pg (25.7-33.7); MCHC 34.9 g/dl (32.0-35.9); MEAN CELL VOLUME 95.4 fl (80-96); MONO % 9.7 % (3.8-10.2); NEUT % 47.6 % (42.8-82.8); PLATELET COUNT 171 10^3/uL (134-434); RBC 3.76 M/mm3 (4.00-5.60); RDW 15.6 % (11.9-15.9); WHITE BLOOD COUNT 2.9 K/mm3 (4.0-10.0)
[2022-08-07 09:09] LABS: POTASSIUM 3.3 mmol/L (3.5-5.1)
[2022-08-07 09:13] LABS: BLOOD UREA NITROGEN 3.9 mg/dL (7-18); CALCIUM 9.8 mg/dL (8.5-10.1)
[2022-08-07 09:14] LABS: ALBUMIN 3.6 g/dl (3.4-5.0)
[2022-08-07 09:16] LABS: CREATININE 0.7 mg/dL (0.55-1.3)
[2022-08-07 09:18] LABS: BILIRUBIN,TOTAL 1.3 mg/dL (0.2-1); TOT PROT 7.6 g/dl (6.4-8.2)
[2022-08-07] MEDS ORDERED: MUPIROCIN 2% TOPICAL OINTMENT FOR DECOLONIZATION NS SCH (10:00)
[2022-08-07] MEDS ORDERED: ENOXAPARIN NA (PORCINE) 30 MG/0.3 ML DISP.SYRIN SQ SCH (10:00)
[2022-08-07] MEDS ORDERED: ENOXAPARIN NA (PORCINE) 40 MG/0.4 ML DISP.SYRIN SQ SCH (10:50)
[2022-08-07] MEDS: NIFEdipine E.R 60 MG TABLET PO SCH (10:57)
[2022-08-07] MEDS: LOSARTAN POTASSIUM 50 MG TABLET PO SCH (10:57)
[2022-08-07] MEDS: METOPROLOL TARTRATE 50 MG TABLET (FP) PO SCH ×2 (10:59→21:33)
[2022-08-07] MEDS: ENOXAPARIN NA (PORCINE) 40 MG/0.4 ML DISP.SYRIN SQ SCH (11:16)
[2022-08-07] MEDS ORDERED: POTASSIUM CHLORIDE ORAL LIQUID 20 MEQ/15 ML PO ONE (11:18)
[2022-08-07] MEDS: LACTATED RINGERS SOLUTION 1,000 ML/1,000 ML INFUS.BAG IV SCH (11:52)
[2022-08-07] MEDS ORDERED: CHLORHEXIDINE GLUCONATE 4% CLEANSER FOR DECOLONIZATION TP SCH (22:00)
[2022-08-08] MEDS: KETOROLAC TROMETHAMINE 30 MG/1 ML VIAL IM PRN ×3 (00:38→22:14)
[2022-08-08] MEDS: hydrALAZINE HCL 50 MG TABLET (FP) PO SCH ×3 (05:13→21:04)
[2022-08-08] MEDS: NAPH,MB-DB/K PH,MBDB POWDER PACKET PO SCH ×3 (05:13→21:04)
[2022-08-08] MEDS: chlordiazePOXIDE HCL 25 MG CAPSULE PO SCH ×4 (05:14→22:14)
[2022-08-08] MEDS: NIFEdipine E.R 60 MG TABLET PO SCH (10:13)
[2022-08-08] MEDS: LOSARTAN POTASSIUM 50 MG TABLET PO SCH (10:13)
[2022-08-08] MEDS: ENOXAPARIN NA (PORCINE) 40 MG/0.4 ML DISP.SYRIN SQ SCH (10:13)
[2022-08-08] MEDS: METOPROLOL TARTRATE 50 MG TABLET (FP) PO SCH ×2 (10:13→21:04)
[2022-08-08 10:20] LABS: BASO % 0.3 % (0-2.0); EOS % 0.9 % (0-4.5); HEMATOCRIT 31.3 % (35.4-49); HEMOGLOBIN 10.5 GM/dL (11.7-16.9); LYMPH % 43.6 % (8-40); MCH 32.3 pg (25.7-33.7); MCHC 33.5 g/dl (32.0-35.9); MEAN CELL VOLUME 96.4 fl (80-96); MEAN PLT VOLUME 8.8 fl (7.5-11.1); MONO % 11.1 % (3.8-10.2); NEUT % 44.1 % (42.8-82.8); PLATELET COUNT 174 10^3/uL (134-434); RBC 3.25 M/mm3 (4.00-5.60); RDW 15.5 % (11.9-15.9)
[2022-08-08 10:27] LABS: POTASSIUM 3.6 mmol/L (3.5-5.1)
[2022-08-08 10:35] LABS: CALCIUM 9.3 mg/dL (8.5-10.1)
[2022-08-08 10:36] LABS: ALBUMIN 3.4 g/dl (3.4-5.0); BLOOD UREA NITROGEN 5.4 mg/dL (7-18)
[2022-08-08 10:38] LABS: CREATININE 0.6 mg/dL (0.55-1.3); PHOSPHOROUS 2.5 mg/dL (2.5-4.9)
[2022-08-08 10:40] LABS: BILIRUBIN,TOTAL 0.7 mg/dL (0.2-1); TOT PROT 6.6 g/dl (6.4-8.2)
[2022-08-08] MEDS: LACTATED RINGERS SOLUTION 1,000 ML/1,000 ML INFUS.BAG IV SCH (11:44)
[2022-08-09] MEDS ORDERED: chlordiazePOXIDE HCL 10 MG CAPSULE PO PRN
[2022-08-09] MEDS: chlordiazePOXIDE HCL 10 MG CAPSULE PO SCH ×2 (05:02→11:29)
[2022-08-09] MEDS: NAPH,MB-DB/K PH,MBDB POWDER PACKET PO SCH ×2 (05:02→14:55)
[2022-08-09] MEDS: hydrALAZINE HCL 50 MG TABLET (FP) PO SCH ×2 (05:02→14:55)
[2022-08-09] MEDS: LOSARTAN POTASSIUM 50 MG TABLET PO SCH (11:27)
[2022-08-09] MEDS: NIFEdipine E.R 60 MG TABLET PO SCH (11:27)
[2022-08-09] MEDS: METOPROLOL TARTRATE 50 MG TABLET (FP) PO SCH (11:27)
[2022-08-09] MEDS: ENOXAPARIN NA (PORCINE) 40 MG/0.4 ML DISP.SYRIN SQ SCH (11:28)
[2022-08-09 12:55] VITALS: RESP 18
[2022-08-09 14:33] VITALS: BP 138/104; PULSE 80; TEMP 97.7
[2022-08-10] MEDS ORDERED: chlordiazePOXIDE HCL 10 MG CAPSULE PO SCH (05:00)
[2022-08-10 21:03] VITALS: BMI 27.8
[2022-08-11] MEDS ORDERED: chlordiazePOXIDE HCL 10 MG CAPSULE PO ONE (05:00)
== END 2022-08-09 15:54 | disposition home or self-care (01) | DRG 439 ==
LOC: JER 04:15 → JERBED 10:55 → JICU 11:48 → J6S 08-06 20:59
PROVIDERS: ADMIT Internal Medicine Pulmonary Disease; ATTEND Internal Medicine
PROC: HZ2ZZZZ Detoxification Services for Substance Abuse Treatment (ICD-10-PCS; principal; 2022-08-04)
DX: K85.20 Alcohol induced acute pancreatitis without necrosis or infection (principal); E87.20 Acidosis, unspecified; E87.29 Other acidosis; F10.239 Alcohol dependence with withdrawal, unspecified; I10 Essential (primary) hypertension; E87.5 Hyperkalemia; M54.50 Low back pain, unspecified; K76.0 Fatty (change of) liver, not elsewhere classified; R79.89 Other specified abnormal findings of blood chemistry; K70.9 Alcoholic liver disease, unspecified; I48.0 Paroxysmal atrial fibrillation
CPT/HCPCS: 36415; 36600; 74176-TC; 76705-TC; 80048; 80053; 80307; 81003; 82010; 82150; 82570; 82803; 82962; 83036; 83605; 83690; 83735; 83930; 84100; 84300; 84478; 84484; 85025; 87040; 87635; 93005; 93010; 99291

== ENCOUNTER 2022-08-27 23:14 | Inpatient (IN) | payer BC, OTHER ==
[2022-08-28 00:08] VITALS: BMI 27.8
[2022-08-28] MEDS ORDERED: LACTATED RINGERS SOLUTION 1000 ML INFUS.BAG IV ONE (01:17)
[2022-08-28] MEDS ORDERED: FAMOTIDINE 20 MG/50 ML IVPB 20 MG/50 ML MG IVPB ONE (01:17)
[2022-08-28] MEDS ORDERED: ACETAMINOPHEN 1000 MG/100 ML BAG IVPB ONE (01:17)
[2022-08-28] MEDS ORDERED: METOCLOPRAMIDE HCL INJECTION 10 MG/2 ML VIAL IVPUSH ONE (01:19)
[2022-08-28] MEDS ORDERED: ONDANSETRON 4 MG/2 ML VIAL ONE (01:23)
[2022-08-28] MEDS ORDERED: ACETAMINOPHEN INJECTION 100 ML IVPB ONE ×2 (01:23→09:43)
[2022-08-28] MEDS ORDERED: FAMOTIDINE 10 MG/ML VIAL IVPB ONE (01:24)
[2022-08-28] MEDS: ONDANSETRON 4 MG/2 ML VIAL IVPUSH ONE ×2 (01:25→02:34)
[2022-08-28 01:55] LABS: MCH 33.3 pg (25.7-33.7); MEAN CELL VOLUME 99.9 fl (80-96); MEAN PLT VOLUME 7.7 fl (7.5-11.1)
[2022-08-28 01:57] LABS: BASO % 0.3 % (0-2.0); HEMATOCRIT 42.3 % (35.4-49); HEMOGLOBIN 14.1 GM/dL (11.7-16.9); LYMPH % 33.1 % (8-40); MCHC 33.4 g/dl (32.0-35.9); MONO % 4.5 % (3.8-10.2); NEUT % 62.1 % (42.8-82.8); PLATELET COUNT 255 10^3/uL (134-434); RBC 4.24 M/mm3 (4.00-5.60); WHITE BLOOD COUNT 5.2 K/mm3 (4.0-10.0)
[2022-08-28 02:06] LABS: INR 0.98 (0.83-1.09); PROTHROMBIN TIME (PATIENT) 11.4 SEC (9.7-13.0)
[2022-08-28 02:09] LABS: ACTIVATED PTT 30.6 SECONDS (25.2-36.5)
[2022-08-28 02:22] LABS: POTASSIUM 5.6 mmol/L (3.5-5.1)
[2022-08-28 02:24] LABS: CALCIUM 9.2 mg/dL (8.5-10.1)
[2022-08-28 02:25] LABS: ALBUMIN 4.5 g/dl (3.4-5.0); BLOOD UREA NITROGEN 8.1 mg/dL (7-18); MAGNESIUM 1.8 mg/dL (1.8-2.4)
[2022-08-28] MEDS ORDERED: morphine CARPU-JECT 4 MG/1 ML DISP.SYRIN IVPUSH ONE (02:27)
[2022-08-28] MEDS ORDERED: morphine SULFATE 4 MG/ML VIAL ONE (02:27)
[2022-08-28] MEDS ORDERED: METOCLOPRAMIDE HCL INJECTION 10 MG/2 ML VIAL ONE (02:27)
[2022-08-28 02:29] LABS: BILIRUBIN,TOTAL 1.5 mg/dL (0.2-1)
[2022-08-28] MEDS ORDERED: SODIUM CHLORIDE 0.9% 500 ML INFUS.BAG IV ONE (02:36)
[2022-08-28 02:55] LABS: VENOUS BASE EXCESS -17.5 mmol/L (-2-2); VENOUS O2 SATURATION 94.1 % (70-80); VENOUS PCO2 24.3 mmHg (38-52)
[2022-08-28 02:57] LABS: VENOUS PH 7.186 (7.310-7.410)
[2022-08-28] MEDS ORDERED: THIAMINE HCL 200 MG/2 ML VIAL IVPB ONE (03:11)
[2022-08-28 03:14] LABS: LACTIC ACID 6.6 mmol/L (0.4-2.0)
[2022-08-28] MEDS ORDERED: DEXTROSE 5%-NORMAL SALINE 1,000 ML IV SCH (03:15)
[2022-08-28] MEDS ORDERED: THIAMINE HCL 200 MG/2 ML VIAL ONE (03:15)
[2022-08-28 03:21] LABS: POTASSIUM 5.5 mmol/L (3.5-5.1)
[2022-08-28 03:24] LABS: CALCIUM 8.4 mg/dL (8.5-10.1)
[2022-08-28 03:25] LABS: ALBUMIN 4.2 g/dl (3.4-5.0); BLOOD UREA NITROGEN 8.2 mg/dL (7-18)
[2022-08-28 03:28] LABS: CREATININE 0.9 mg/dL (0.55-1.3)
[2022-08-28 03:30] LABS: BILIRUBIN,TOTAL 1.4 mg/dL (0.2-1)
[2022-08-28] MEDS ORDERED: DEXTROSE 50%-WATER 25 GM/50 ML DISP.SYRIN ONE (04:29)
[2022-08-28] MEDS ORDERED: DEXTROSE 50%-WATER - 25 GM/50 ML VIAL IVPUSH ONE (04:29)
[2022-08-28 04:49] LABS: EPI CELLS 4 /uL (0-25.1); HYALINE CASTS 0 /uL (0-3.1); PH,URINE 5.5 (5.0-8.0); URINE APPEARANCE CLEAR; URINE BACTERIA 2 /uL (0-1359); URINE BILIRUBIN NEGATIVE (NEGATIVE); URINE COLOR YELLOW; URINE GLUCOSE (UA) NEGATIVE (NEGATIVE); URINE KETONE 4+ (NEGATIVE); URINE LEUK ESTERASE NEGATIVE (NEGATIVE); URINE NITRITE NEGATIVE (NEGATIVE); URINE PROTEIN 1+ (NEGATIVE); URINE RBC 7 /uL (0-23.9); URINE UROBILINOGEN 0.2 mg/dL (0.2-1.0); URINE WBC 1 /uL (0-25.8)
[2022-08-28] MEDS ORDERED: DOCUSATE SODIUM 100 MG CAPSULE (FP) PO PRN (05:05)
[2022-08-28] MEDS ORDERED: chlordiazePOXIDE HCL 25 MG CAPSULE PO PRN (05:20)
[2022-08-28] MEDS: HEPARIN NA (PORCINE) 5,000 UNITS/ML 1ML VIAL SQ SCH ×3 (05:43→22:07)
[2022-08-28 07:10] LABS: LACTIC ACID 5.1 mmol/L (0.4-2.0)
[2022-08-28 07:48] LABS: VENOUS BASE EXCESS -9.9 mmol/L (-2-2); VENOUS O2 SATURATION 78.2 % (70-80); VENOUS PCO2 32.6 mmHg (38-52); VENOUS PH 7.295 (7.310-7.410)
[2022-08-28 08:13] LABS: POTASSIUM 5.3 mmol/L (3.5-5.1)
[2022-08-28 08:14] LABS: CALCIUM 8.2 mg/dL (8.5-10.1); MAGNESIUM 1.6 mg/dL (1.8-2.4)
[2022-08-28 08:15] LABS: BLOOD UREA NITROGEN 6.7 mg/dL (7-18)
[2022-08-28 08:18] LABS: CREATININE 0.9 mg/dL (0.55-1.3)
[2022-08-28 08:43] LABS: PHOSPHOROUS 1.4 mg/dL (2.5-4.9)
[2022-08-28] MEDS ORDERED: THIAMINE HCL 100 MG TABLET (FP) ONE (09:30)
[2022-08-28] MEDS ORDERED: FOLIC ACID 1 MG TABLET (FP) ONE (09:31)
[2022-08-28] MEDS ORDERED: MULTIVITAMINS (DAILY MVI) TABLET (FP) ONE (09:31)
[2022-08-28] MEDS: THIAMINE HCL 100 MG TABLET (FP) PO SCH (09:34)
[2022-08-28] MEDS: FOLIC ACID 1 MG TABLET (FP) PO SCH (09:34)
[2022-08-28] MEDS: MULTIVITAMINS (DAILY MVI) TABLET (FP) PO SCH (09:34)
[2022-08-28] MEDS ORDERED: ACETAMINOPHEN 1000 MG/100 ML BAG IVPB PRN ×2 (09:38→14:24)
[2022-08-28] MEDS ORDERED: chlordiazePOXIDE HCL 25 MG CAPSULE ONE ×2 (09:43→17:42)
[2022-08-28] MEDS ORDERED: ONDANSETRON 4 MG/2 ML VIAL IVPUSH PRN (10:18)
[2022-08-28] MEDS ORDERED: chlordiazePOXIDE HCL 25 MG CAPSULE PO SCH (11:00)
[2022-08-28] MEDS ORDERED: MAGNESIUM SULFATE IN WATER 2 GM/50 ML IVPB IVPB ONE ×2 (12:19→12:53)
[2022-08-28] MEDS ORDERED: HEPARIN NA (PORCINE) 5,000 UNITS/ML 1ML VIAL ONE (14:43)
[2022-08-28] MEDS ORDERED: DEXTROSE 5%-0.45% SALINE 1,000 ML IV SCH (17:15)
[2022-08-28] MEDS: chlordiazePOXIDE HCL 25 MG CAPSULE PO PRN ×2 (17:46→22:18)
[2022-08-28] MEDS ORDERED: traZODone HCL 50 MG TABLET (FP) PO SCH (22:00)
[2022-08-28] MEDS: NAPH,MB-DB/K PH,MBDB POWDER PACKET PO SCH (22:07)
[2022-08-29] MEDS: HEPARIN NA (PORCINE) 5,000 UNITS/ML 1ML VIAL SQ SCH (06:49)
[2022-08-29 08:10] LABS: CHLORIDE 101 mmol/L (98-107); POTASSIUM 4.1 mmol/L (3.5-5.1); SODIUM 139 mmol/L (136-145)
[2022-08-29 08:29] LABS: ANION GAP 11 MMOL/L (8-16); CO2 27 mmol/L (21-32); GLUCOSE,RANDOM 124 mg/dL (74-106)
[2022-08-29 08:32] LABS: CREATININE 0.8 mg/dL (0.55-1.3); PHOSPHOROUS 2.8 mg/dL (2.5-4.9)
[2022-08-29 08:36] LABS: CALCIUM 9.7 mg/dL (8.5-10.1)
[2022-08-29] MEDS: NAPH,MB-DB/K PH,MBDB POWDER PACKET PO SCH (09:22)
[2022-08-29] MEDS: MULTIVITAMINS (DAILY MVI) TABLET (FP) PO SCH (09:23)
[2022-08-29] MEDS: THIAMINE HCL 100 MG TABLET (FP) PO SCH (09:23)
[2022-08-29] MEDS: FOLIC ACID 1 MG TABLET (FP) PO SCH (09:23)
[2022-08-29 10:44] VITALS: BP 160/110; PULSE 88; RESP 18; TEMP 97.8
[2022-08-29] MEDS ORDERED: NIFEdipine E.R 60 MG TABLET PO SCH (11:00)
[2022-08-29] MEDS ORDERED: MAGNESIUM OXIDE 400 MG TABLET (FP) PO SCH (11:00)
[2022-08-29] MEDS ORDERED: METOPROLOL TARTRATE 50 MG TABLET (FP) PO SCH (11:00)
[2022-08-29] MEDS ORDERED: HYDROCHLOROTHIAZIDE 25 MG TABLET (FP) PO SCH (11:00)
[2022-08-29] MEDS: chlordiazePOXIDE HCL 25 MG CAPSULE PO PRN (11:31)
[2022-08-29] MEDS ORDERED: LIPASE/PROTEASE/AMYLASE 36,000 UNIT CAPSULE PO SCH (12:00)
[2022-08-29 12:31] LABS: BASO % 0.2 % (0-2.0); EOS % 0.6 % (0-4.5); HEMATOCRIT 35.4 % (35.4-49); HEMOGLOBIN 12.1 GM/dL (11.7-16.9); MCH 33.6 pg (25.7-33.7); MCHC 34.2 g/dl (32.0-35.9); MEAN CELL VOLUME 98.3 fl (80-96); MEAN PLT VOLUME 8.7 fl (7.5-11.1); MONO % 7.5 % (3.8-10.2); NEUT % 34.7 % (42.8-82.8); PLATELET COUNT 171 10^3/uL (134-434); RBC 3.61 M/mm3 (4.00-5.60); RDW 16.6 % (11.9-15.9); WHITE BLOOD COUNT 2.3 K/mm3 (4.0-10.0)
[2022-08-29] MEDS ORDERED: hydrALAZINE HCL 50 MG TABLET (FP) PO SCH (14:00)
[2022-08-30] MEDS ORDERED: chlordiazePOXIDE HCL 25 MG CAPSULE PO SCH (05:00)
[2022-08-30] MEDS ORDERED: ASPIRIN 81 MG CHEWABLE TABLETS PO SCH (10:00)
[2022-08-30] MEDS ORDERED: THIAMINE HCL 100 MG TABLET (FP) PO SCH (10:00)
[2022-08-31] MEDS ORDERED: chlordiazePOXIDE HCL 10 MG CAPSULE PO PRN
[2022-08-31] MEDS ORDERED: chlordiazePOXIDE HCL 10 MG CAPSULE PO SCH (05:00)
[2022-09-01] MEDS ORDERED: chlordiazePOXIDE HCL 10 MG CAPSULE PO SCH (05:00)
[2022-09-02] MEDS ORDERED: chlordiazePOXIDE HCL 10 MG CAPSULE PO ONE (05:00)
== END 2022-08-29 12:28 | disposition left against medical advice (07) | DRG 641 ==
LOC: JER 23:14 → JERBED 08-28 03:22 → J4W 08-28 21:25
PROVIDERS: ADMIT Internal Medicine; ATTEND Internal Medicine
PROC: HZ2ZZZZ Detoxification Services for Substance Abuse Treatment (ICD-10-PCS; principal; 2022-08-28)
DX: E87.29 Other acidosis (principal); F10.139 Alcohol abuse with withdrawal, unspecified; I10 Essential (primary) hypertension; I48.91 Unspecified atrial fibrillation; K70.9 Alcoholic liver disease, unspecified; R00.0 Tachycardia, unspecified
CPT/HCPCS: 36415; 71045-TC-FY; 80048; 80053; 81003; 82010; 82550; 82553; 82803; 82962; 83605; 83690; 83735; 84100; 84484; 85025; 85610; 85730; 87086; 93005; 93010; 99285-25; J1644

== ENCOUNTER 2022-09-05 01:43 | Emergency (ER) | payer BC, OTHER ==
[2022-09-05 01:49] VITALS: BMI 26.6
[2022-09-05] MEDS ORDERED: FOLIC ACID INJECTION - 1 MG, THIAMINE HCL 100 MG, MULTIVIT INJECTION ADULT 10 ML in SOD... IVPB ONE (02:13)
[2022-09-05] MEDS ORDERED: ONDANSETRON 4 MG/2 ML VIAL IVPUSH ONE (02:42)
[2022-09-05] MEDS ORDERED: ACETAMINOPHEN 1000 MG/100 ML BAG IVPB ONE (02:43)
[2022-09-05] MEDS ORDERED: ACETAMINOPHEN INJECTION 100 ML IVPB ONE (03:54)
[2022-09-05] MEDS ORDERED: ONDANSETRON 4 MG/2 ML VIAL ONE (03:55)
[2022-09-05 05:16] LABS: VENOUS BASE EXCESS -4.2 mmol/L (-2-2); VENOUS O2 SATURATION 94.3 % (70-80); VENOUS PCO2 39.4 mmHg (38-52); VENOUS PH 7.345 (7.310-7.410)
[2022-09-05 05:31] LABS: INR 1.05 (0.83-1.09); PROTHROMBIN TIME (PATIENT) 12.2 SEC (9.7-13.0)
[2022-09-05 05:34] LABS: ACTIVATED PTT 34.4 SECONDS (25.2-36.5)
[2022-09-05 05:36] LABS: POTASSIUM 3.7 mmol/L (3.5-5.1)
[2022-09-05 05:39] LABS: ALBUMIN 3.9 g/dl (3.4-5.0); CALCIUM 9.1 mg/dL (8.5-10.1); HEMATOCRIT 36.3 % (35.4-49); HEMOGLOBIN 12.3 GM/dL (11.7-16.9); MAGNESIUM 1.9 mg/dL (1.8-2.4); MCH 33.7 pg (25.7-33.7); MCHC 33.9 g/dl (32.0-35.9); MEAN CELL VOLUME 99.4 fl (80-96); MEAN PLT VOLUME 8.4 fl (7.5-11.1); PLATELET COUNT 220 10^3/uL (134-434); RBC 3.66 M/mm3 (4.00-5.60); RDW 16.4 % (11.9-15.9); WHITE BLOOD COUNT 2.4 K/mm3 (4.0-10.0)
[2022-09-05 05:42] LABS: CREATININE 0.8 mg/dL (0.55-1.3)
[2022-09-05 05:44] LABS: BILIRUBIN,TOTAL 1.2 mg/dL (0.2-1); TOT PROT 7.5 g/dl (6.4-8.2)
[2022-09-05 06:05] LABS: LACTIC ACID 5.8 mmol/L (0.4-2.0)
[2022-09-05 07:37] LABS: ANISOCYTOSIS 1+
[2022-09-05 08:47] LABS: LACTIC ACID 4.7 mmol/L (0.4-2.0)
[2022-09-05 09:14] VITALS: BP 141/93; PULSE 86; RESP 18; TEMP 97.7
== END 2022-09-05 10:04 | disposition home or self-care (01) ==
LOC: JER 01:43
PROC: 3E033GC Introduction of Other Therapeutic Substance into Peripheral Vein, Percutaneous Approach (ICD-10-PCS; principal; 2022-09-05)
PROC: 3E033GC Introduction of Other Therapeutic Substance into Peripheral Vein, Percutaneous Approach (ICD-10-PCS; 2022-09-05)
PROC: 3E033GC Introduction of Other Therapeutic Substance into Peripheral Vein, Percutaneous Approach (ICD-10-PCS; 2022-09-05)
PROC: 3E033GC Introduction of Other Therapeutic Substance into Peripheral Vein, Percutaneous Approach (ICD-10-PCS; 2022-09-05)
PROC: 3E033GC Introduction of Other Therapeutic Substance into Peripheral Vein, Percutaneous Approach (ICD-10-PCS; 2022-09-05)
PROC: 3E033GC Introduction of Other Therapeutic Substance into Peripheral Vein, Percutaneous Approach (ICD-10-PCS; 2022-09-05)
PROC: 3E033GC Introduction of Other Therapeutic Substance into Peripheral Vein, Percutaneous Approach (ICD-10-PCS; 2022-09-05)
PROC: 3E033GC Introduction of Other Therapeutic Substance into Peripheral Vein, Percutaneous Approach (ICD-10-PCS; 2022-09-05)
PROC: 3E033GC Introduction of Other Therapeutic Substance into Peripheral Vein, Percutaneous Approach (ICD-10-PCS; 2022-09-05)
PROC: 3E033NZ Introduction of Analgesics, Hypnotics, Sedatives into Peripheral Vein, Percutaneous Approach (ICD-10-PCS; 2022-09-05)
DX: R10.13 Epigastric pain (principal); F10.929 Alcohol use, unspecified with intoxication, unspecified; R11.2 Nausea with vomiting, unspecified; R19.7 Diarrhea, unspecified; Z20.822 Contact with and (suspected) exposure to COVID-19
CPT/HCPCS: 0241U-QW; 36415; 71045-TC-FY; 74177-TC; 80053; 80307; 82803; 83605; 83690; 83735; 84484; 85025; 85610; 85730; 86850; 86900; 86901; 93005; 93010; 99285-25; Q9967

== ENCOUNTER 2022-09-08 01:28 | Emergency (ER) | payer BC, OTHER ==
[2022-09-08] MEDS ORDERED: morphine CARPU-JECT 2 MG/1 ML DISP.SYRIN IM ONE (02:08)
[2022-09-08 02:26] VITALS: RESP 18; TEMP 98; BMI 25.9
[2022-09-08 02:51] VITALS: BP 152/94; PULSE 97
== END 2022-09-08 02:56 | disposition home or self-care (01) ==
LOC: JER 01:28
PROC: 3E023GC Introduction of Other Therapeutic Substance into Muscle, Percutaneous Approach (ICD-10-PCS; principal; 2022-09-08)
DX: R10.9 Unspecified abdominal pain (principal); G89.29 Other chronic pain; R11.2 Nausea with vomiting, unspecified; R19.7 Diarrhea, unspecified
CPT/HCPCS: 99284-25

== ENCOUNTER 2022-09-09 01:41 | Emergency (ER) | payer BC, OTHER ==
[2022-09-09 01:48] VITALS: BP 136/94; PULSE 104; RESP 18; TEMP 97.7; BMI 25.3
[2022-09-09] MEDS ORDERED: FAMOTIDINE 20 MG TABLET PO ONE (02:20)
[2022-09-09] MEDS ORDERED: MAG HYDROX/AL HYDROX/SIMETH -MYLANTA- ORAL SUSPENSION PO ONE (02:20)
[2022-09-09] MEDS ORDERED: SUCRALFATE 1 GM TABLET (FP) PO ONE (02:20)
[2022-09-09] MEDS ORDERED: FAMOTIDINE 20 MG TABLET ONE (02:30)
[2022-09-09] MEDS ORDERED: SUCRALFATE 1 GM TABLET (FP) ONE (02:30)
[2022-09-09] MEDS ORDERED: MAG HYDROX/AL HYDROX/SIMETH 30 ML UNIT-DOSE CUP ONE (02:30)
== END 2022-09-09 06:44 | disposition left against medical advice (07) ==
LOC: JER 01:41
DX: R10.84 Generalized abdominal pain (principal); R30.0 Dysuria; M62.81 Muscle weakness (generalized)
CPT/HCPCS: 99283-25

== ENCOUNTER 2022-09-10 03:03 | Emergency (ER) | payer BC, OTHER ==
[2022-09-10 03:07] VITALS: BP 160/88; PULSE 89; RESP 18; TEMP 98; BMI 25.3
== END 2022-09-10 03:54 | disposition left against medical advice (07) ==
LOC: JER 03:03
DX: R10.9 Unspecified abdominal pain (principal)
CPT/HCPCS: 99281-25

== ENCOUNTER 2022-12-20 04:49 | Inpatient (IN) | payer BC, OTHER ==
[2022-12-20] MEDS ORDERED: ACETAMINOPHEN 1000 MG/100 ML BAG IVPB ONE (05:09)
[2022-12-20] MEDS ORDERED: FAMOTIDINE 20 MG/50 ML IVPB 20 MG/50 ML MG IVPB ONE ×2 (05:09→05:20)
[2022-12-20] MEDS ORDERED: LACTATED RINGERS SOLUTION 1000 ML INFUS.BAG IV ONE (05:09)
[2022-12-20] MEDS ORDERED: ACETAMINOPHEN INJECTION 100 ML IVPB ONE (05:19)
[2022-12-20 05:47] LABS: BASO % 0.5 % (0-2.0); EOS % 1.5 % (0-4.5); HEMATOCRIT 38.3 % (35.4-49); HEMOGLOBIN 13.1 GM/dL (11.7-16.9); MCH 28.4 pg (25.7-33.7); MCHC 34.2 g/dl (32.0-35.9); MEAN CELL VOLUME 82.9 fl (80-96); MEAN PLT VOLUME 9.1 fl (7.5-11.1); MONO % 8.4 % (3.8-10.2); NEUT % 49.6 % (42.8-82.8); PLATELET COUNT 232 10^3/uL (134-434); RBC 4.61 M/mm3 (4.00-5.60); RDW 15.8 % (11.9-15.9)
[2022-12-20] MEDS ORDERED: SUCRALFATE 1 GM TABLET (FP) PO ONE (05:57)
[2022-12-20 06:05] LABS: POTASSIUM 3.8 mmol/L (3.5-5.1)
[2022-12-20 06:08] LABS: ALBUMIN 3.7 g/dl (3.4-5.0); BLOOD UREA NITROGEN 12.5 mg/dL (7-18); MAGNESIUM 1.9 mg/dL (1.8-2.4)
[2022-12-20 06:11] LABS: CREATININE 1.2 mg/dL (0.55-1.3)
[2022-12-20 06:12] LABS: BILIRUBIN,TOTAL 0.6 mg/dL (0.2-1)
[2022-12-20 06:13] LABS: TOT PROT 7.4 g/dl (6.4-8.2)
[2022-12-20 06:33] LABS: INR 1.02 (0.83-1.09); PROTHROMBIN TIME (PATIENT) 11.8 SEC (9.7-13.0)
[2022-12-20 06:36] LABS: ACTIVATED PTT 32.9 SECONDS (25.2-36.5)
[2022-12-20] MEDS ORDERED: ONDANSETRON 4 MG/2 ML VIAL IVPUSH ONE (06:41)
[2022-12-20] MEDS ORDERED: morphine CARPU-JECT 4 MG/1 ML DISP.SYRIN IVPUSH ONE (06:42)
[2022-12-20] MEDS ORDERED: SUCRALFATE 1 GM TABLET (FP) ONE (07:00)
[2022-12-20] MEDS ORDERED: ONDANSETRON 4 MG/2 ML VIAL ONE (07:00)
[2022-12-20] MEDS ORDERED: morphine SULFATE 4 MG/ML VIAL ONE ×2 (07:00→16:18)
[2022-12-20 07:54] LABS: PH,URINE 5.5 (5.0-8.0); URINE APPEARANCE CLEAR; URINE BILIRUBIN NEGATIVE (NEGATIVE); URINE COLOR YELLOW; URINE GLUCOSE (UA) NEGATIVE (NEGATIVE); URINE KETONE NEGATIVE (NEGATIVE); URINE LEUK ESTERASE NEGATIVE (NEGATIVE); URINE NITRITE NEGATIVE (NEGATIVE); URINE PROTEIN NEGATIVE (NEGATIVE); URINE UROBILINOGEN 0.2 mg/dL (0.2-1.0)
[2022-12-20] MEDS ORDERED: CARVEDILOL 3.125 MG TABLET (FP) PO ONE (10:29)
[2022-12-20] MEDS ORDERED: amLODIPine BESYLATE 10 MG TABLET (FP) PO ONE (10:30)
[2022-12-20] MEDS ORDERED: LOSARTAN POTASSIUM 50 MG TABLET PO ONE (10:30)
[2022-12-20] MEDS ORDERED: amLODIPine BESYLATE 10 MG TABLET (FP) ONE (10:31)
[2022-12-20] MEDS ORDERED: LOSARTAN POTASSIUM 50 MG TABLET ONE (10:31)
[2022-12-20] MEDS ORDERED: CARVEDILOL 3.125 MG TABLET (FP) ONE (10:31)
[2022-12-20] MEDS ORDERED: DICYCLOMINE HCL 10 MG CAPSULE PO PRN (15:28)
[2022-12-20] MEDS ORDERED: FOLIC ACID INJECTION - 1 MG, THIAMINE HCL 100 MG, MULTIVIT INJECTION ADULT 10 ML in SOD... IVPB ONE (16:00)
[2022-12-20] MEDS ORDERED: THIAMINE HCL 200 MG/2 ML VIAL ONE (16:18)
[2022-12-20] MEDS: morphine SULFATE 4 MG/ML VIAL IVPUSH PRN ×3 (16:31→22:33)
[2022-12-20] MEDS: THIAMINE HCL 200 MG/2 ML VIAL IM SCH (16:31)
[2022-12-20] MEDS: D5-1/2NS+20 MEQ KCL - 20 MEQ/1,000 ML INFUS.BAG IV SCH (16:41)
[2022-12-20 18:29] VITALS: BMI 28.8
[2022-12-20] MEDS: LIPASE/PROTEASE/AMYLASE 36,000 UNIT CAPSULE PO SCH (18:56)
[2022-12-20] MEDS: hydrALAZINE HCL 50 MG TABLET (FP) PO SCH (22:20)
[2022-12-20] MEDS: MAGNESIUM OXIDE 400 MG TABLET (FP) PO SCH (22:20)
[2022-12-20] MEDS: METOPROLOL TARTRATE 50 MG TABLET (FP) PO SCH (22:21)
[2022-12-20] MEDS: HEPARIN NA (PORCINE) 5,000 UNITS/ML 1ML VIAL SQ SCH ×2 (22:24→22:34)
[2022-12-21] MEDS: D5-1/2NS+20 MEQ KCL - 20 MEQ/1,000 ML INFUS.BAG IV SCH ×4 (02:26→23:50)
[2022-12-21] MEDS: hydrALAZINE HCL 50 MG TABLET (FP) PO SCH ×3 (06:35→22:21)
[2022-12-21] MEDS ORDERED: chlordiazePOXIDE HCL 25 MG CAPSULE PO PRN (07:53)
[2022-12-21 09:47] LABS: BASO % 0.2 % (0-2.0); EOS % 2.9 % (0-4.5); HEMATOCRIT 40.5 % (35.4-49); HEMOGLOBIN 14.3 GM/dL (11.7-16.9); LYMPH % 48.1 % (8-40); MCH 28.7 pg (25.7-33.7); MCHC 35.2 g/dl (32.0-35.9); MEAN CELL VOLUME 81.5 fl (80-96); MEAN PLT VOLUME 9.4 fl (7.5-11.1); MONO % 7.5 % (3.8-10.2); NEUT % 41.3 % (42.8-82.8); PLATELET COUNT 250 10^3/uL (134-434); RBC 4.97 M/mm3 (4.00-5.60); WHITE BLOOD COUNT 3.7 K/mm3 (4.0-10.0)
[2022-12-21 09:50] LABS: POTASSIUM 4.1 mmol/L (3.5-5.1)
[2022-12-21 09:52] LABS: CALCIUM 9.4 mg/dL (8.5-10.1)
[2022-12-21 09:53] LABS: ALBUMIN 3.9 g/dl (3.4-5.0); MAGNESIUM 1.7 mg/dL (1.8-2.4)
[2022-12-21 09:54] LABS: BLOOD UREA NITROGEN 10.8 mg/dL (7-18)
[2022-12-21 09:58] LABS: BILIRUBIN,TOTAL 0.9 mg/dL (0.2-1); TOT PROT 7.7 g/dl (6.4-8.2)
[2022-12-21] MEDS: LIPASE/PROTEASE/AMYLASE 36,000 UNIT CAPSULE PO SCH ×3 (09:59→18:43)
[2022-12-21] MEDS: THIAMINE HCL 200 MG/2 ML VIAL IM SCH (10:00)
[2022-12-21] MEDS: ASPIRIN 81 MG CHEWABLE TABLETS PO SCH (10:00)
[2022-12-21] MEDS: MAGNESIUM OXIDE 400 MG TABLET (FP) PO SCH ×2 (10:00→22:21)
[2022-12-21] MEDS: FOLIC ACID 1 MG TABLET (FP) PO SCH (10:00)
[2022-12-21] MEDS: MULTIVITAMINS (DAILY MVI) TABLET (FP) PO SCH (10:00)
[2022-12-21] MEDS: HEPARIN NA (PORCINE) 5,000 UNITS/ML 1ML VIAL SQ SCH ×2 (10:00→22:21)
[2022-12-21] MEDS: NIFEdipine E.R 60 MG TABLET PO SCH (10:00)
[2022-12-21] MEDS: METOPROLOL TARTRATE 50 MG TABLET (FP) PO SCH ×2 (10:05→22:21)
[2022-12-21] MEDS: morphine SULFATE 4 MG/ML VIAL IVPUSH PRN ×2 (10:13→22:31)
[2022-12-21] MEDS ORDERED: MAGNESIUM SULFATE IN WATER 2 GM/50 ML IVPB IVPB ONE (12:30)
[2022-12-22] MEDS: hydrALAZINE HCL 50 MG TABLET (FP) PO SCH ×2 (07:05→15:32)
[2022-12-22] MEDS: MAGNESIUM OXIDE 400 MG TABLET (FP) PO SCH (11:31)
[2022-12-22] MEDS: NIFEdipine E.R 60 MG TABLET PO SCH (11:32)
[2022-12-22] MEDS: ASPIRIN 81 MG CHEWABLE TABLETS PO SCH (11:32)
[2022-12-22] MEDS: FOLIC ACID 1 MG TABLET (FP) PO SCH (11:32)
[2022-12-22] MEDS: METOPROLOL TARTRATE 50 MG TABLET (FP) PO SCH (11:32)
[2022-12-22] MEDS: MULTIVITAMINS (DAILY MVI) TABLET (FP) PO SCH (11:32)
[2022-12-22] MEDS: LIPASE/PROTEASE/AMYLASE 36,000 UNIT CAPSULE PO SCH ×3 (11:33→18:37)
[2022-12-22] MEDS: HEPARIN NA (PORCINE) 5,000 UNITS/ML 1ML VIAL SQ SCH (11:33)
[2022-12-22] MEDS: THIAMINE HCL 200 MG/2 ML VIAL IM SCH (11:36)
[2022-12-22] MEDS: morphine SULFATE 4 MG/ML VIAL IVPUSH PRN (11:40)
[2022-12-22 15:09] VITALS: RESP 20
[2022-12-22 18:34] VITALS: BP 138/80; PULSE 78; TEMP 98
[2022-12-22] MEDS: D5-1/2NS+20 MEQ KCL - 20 MEQ/1,000 ML INFUS.BAG IV SCH (18:36)
== END 2022-12-22 18:41 | disposition home or self-care (01) | DRG 440 ==
LOC: JER 04:49 → JERBED 06:39 → J8W 17:23
PROVIDERS: ADMIT Internal Medicine; ATTEND Internal Medicine
PROC: HZ2ZZZZ Detoxification Services for Substance Abuse Treatment (ICD-10-PCS; principal; 2022-12-20)
DX: K85.20 Alcohol induced acute pancreatitis without necrosis or infection (principal); I48.91 Unspecified atrial fibrillation; I10 Essential (primary) hypertension; M54.50 Low back pain, unspecified; K70.9 Alcoholic liver disease, unspecified; K21.9 Gastro-esophageal reflux disease without esophagitis; K82.8 Other specified diseases of gallbladder
CPT/HCPCS: 36415; 74177-TC; 76705-TC; 80053; 80307; 81003; 83690; 83735; 85025; 85610; 85730; 87086; 93005; 93010; 99285-25; J1644

== ENCOUNTER 2023-01-21 01:52 | Observation (INO) | payer BC, OTHER ==
[2023-01-21 02:08] VITALS: BMI 28.7
[2023-01-21] MEDS ORDERED: ACETAMINOPHEN 1000 MG/100 ML BAG IVPB ONE (03:05)
[2023-01-21] MEDS ORDERED: ONDANSETRON 4 MG/2 ML VIAL IVPUSH ONE (03:05)
[2023-01-21] MEDS ORDERED: SODIUM CHLORIDE 1,000 ML IV STA (03:05)
[2023-01-21] MEDS ORDERED: FAMOTIDINE 20 MG/50 ML IVPB 20 MG/50 ML MG IVPB ONE ×2 (03:05→03:18)
[2023-01-21] MEDS ORDERED: ONDANSETRON 4 MG/2 ML VIAL ONE (03:17)
[2023-01-21] MEDS ORDERED: ACETAMINOPHEN INJECTION 100 ML IVPB ONE (03:17)
[2023-01-21] MEDS ORDERED: morphine CARPU-JECT 4 MG/1 ML DISP.SYRIN IVPUSH ONE (03:50)
[2023-01-21 03:53] LABS: BASO % 0.4 % (0-2.0); EOS % 0.9 % (0-4.5); HEMATOCRIT 38.9 % (35.4-49); HEMOGLOBIN 13.7 GM/dL (11.7-16.9); LYMPH % 32.2 % (8-40); MCH 30.2 pg (25.7-33.7); MCHC 35.2 g/dl (32.0-35.9); MEAN PLT VOLUME 9.2 fl (7.5-11.1); NEUT % 60.5 % (42.8-82.8); PLATELET COUNT 202 10^3/uL (134-434); RBC 4.52 M/mm3 (4.00-5.60); RDW 16.4 % (11.9-15.9); WHITE BLOOD COUNT 6.3 K/mm3 (4.0-10.0)
[2023-01-21] MEDS ORDERED: morphine SULFATE 4 MG/ML VIAL ONE (03:56)
[2023-01-21 04:22] LABS: CALCIUM 8.7 mg/dL (8.5-10.1)
[2023-01-21 04:23] LABS: ALBUMIN 3.8 g/dl (3.4-5.0); BLOOD UREA NITROGEN 16.2 mg/dL (7-18); MAGNESIUM 1.5 mg/dL (1.8-2.4)
[2023-01-21 04:25] LABS: CREATININE 2.2 mg/dL (0.55-1.3)
[2023-01-21 04:28] LABS: BILIRUBIN,TOTAL 1.5 mg/dL (0.2-1); TOT PROT 7.6 g/dl (6.4-8.2)
[2023-01-21] MEDS ORDERED: MAGNESIUM SULF 50% (8.12 MEQ/2 ML-1 GM VIAL) IVPB ONE (06:03)
[2023-01-21] MEDS ORDERED: SODIUM CHLORIDE 0.9% 500 ML INFUS.BAG IV ONE (06:03)
[2023-01-21] MEDS ORDERED: ONDANSETRON 4 MG/2 ML VIAL IVPUSH PRN (06:05)
[2023-01-21] MEDS ORDERED: MAGNESIUM SULFATE IN WATER 2 GM/50 ML IVPB IVPB ONE (06:09)
[2023-01-21] MEDS: LACTATED RINGERS SOLUTION 1,000 ML IV SCH ×2 (07:43→20:33)
[2023-01-21] MEDS: LOSARTAN POTASSIUM 50 MG TABLET PO SCH (09:29)
[2023-01-21] MEDS: amLODIPine BESYLATE 10 MG TABLET (FP) PO SCH (09:29)
[2023-01-21] MEDS: PANTOPRAZOLE SODIUM 40 MG VIAL IVPUSH SCH (09:29)
[2023-01-21] MEDS: FOLIC ACID 1 MG TABLET (FP) PO SCH (09:29)
[2023-01-21] MEDS: MULTIVITAMINS (DAILY MVI) TABLET (FP) PO SCH (09:29)
[2023-01-21] MEDS ORDERED: morphine CARPU-JECT 2 MG/1 ML DISP.SYRIN IVPUSH PRN (10:25)
[2023-01-21] MEDS: LIPASE/PROTEASE/AMYLASE 36,000 UNIT CAPSULE PO SCH ×2 (12:16→16:47)
[2023-01-21] MEDS: IBUPROFEN 800 MG/8 ML IJ IVPB PRN ×2 (12:16→20:21)
[2023-01-21] MEDS: hydrALAZINE HCL 50 MG TABLET (FP) PO SCH ×2 (13:13→21:33)
[2023-01-21] MEDS: METOPROLOL TARTRATE 50 MG TABLET (FP) PO SCH (21:33)
[2023-01-22] MEDS: hydrALAZINE HCL 50 MG TABLET (FP) PO SCH ×3 (06:04→21:53)
[2023-01-22] MEDS: IBUPROFEN 800 MG/8 ML IJ IVPB PRN ×3 (07:00→21:54)
[2023-01-22 10:49] LABS: POTASSIUM 3.5 mmol/L (3.5-5.1)
[2023-01-22] MEDS: FOLIC ACID 1 MG TABLET (FP) PO SCH ×2 (10:53→11:12)
[2023-01-22] MEDS: METOPROLOL TARTRATE 50 MG TABLET (FP) PO SCH ×2 (10:53→21:50)
[2023-01-22] MEDS: MULTIVITAMINS (DAILY MVI) TABLET (FP) PO SCH ×2 (10:53→11:13)
[2023-01-22] MEDS: PANTOPRAZOLE SODIUM 40 MG VIAL IVPUSH SCH (10:53)
[2023-01-22] MEDS: THIAMINE HCL 100 MG TABLET (FP) PO SCH (10:53)
[2023-01-22] MEDS: LOSARTAN POTASSIUM 50 MG TABLET PO SCH (10:54)
[2023-01-22] MEDS: amLODIPine BESYLATE 10 MG TABLET (FP) PO SCH (10:54)
[2023-01-22] MEDS: NIFEdipine E.R 60 MG TABLET PO SCH ×2 (10:54→11:14)
[2023-01-22] MEDS: LIPASE/PROTEASE/AMYLASE 36,000 UNIT CAPSULE PO SCH ×3 (10:55→17:56)
[2023-01-22] MEDS: ASPIRIN 81 MG CHEWABLE TABLETS PO SCH (10:55)
[2023-01-22 11:08] LABS: BLOOD UREA NITROGEN 6.3 mg/dL (7-18); CALCIUM 9.3 mg/dL (8.5-10.1); CREATININE 1.5 mg/dL (0.55-1.3)
[2023-01-22] MEDS: LACTATED RINGERS SOLUTION 1,000 ML IV SCH (20:05)
[2023-01-22] MEDS: HEPARIN NA (PORCINE) 5,000 UNITS/ML 1ML VIAL SQ SCH (21:47)
[2023-01-23] MEDS: LACTATED RINGERS SOLUTION 1,000 ML IV SCH ×2 (06:44→16:57)
[2023-01-23] MEDS: hydrALAZINE HCL 50 MG TABLET (FP) PO SCH ×3 (06:44→21:23)
[2023-01-23] MEDS: LIPASE/PROTEASE/AMYLASE 36,000 UNIT CAPSULE PO SCH ×3 (08:41→16:54)
[2023-01-23 09:17] LABS: BASO % 0.3 % (0-2.0); EOS % 1.1 % (0-4.5); HEMATOCRIT 37.2 % (35.4-49); HEMOGLOBIN 12.7 GM/dL (11.7-16.9); MCH 30.1 pg (25.7-33.7); MCHC 34.1 g/dl (32.0-35.9); MEAN CELL VOLUME 88.4 fl (80-96); MEAN PLT VOLUME 8.8 fl (7.5-11.1); MONO % 8.8 % (3.8-10.2); NEUT % 62.8 % (42.8-82.8); PLATELET COUNT 194 10^3/uL (134-434); RBC 4.21 M/mm3 (4.00-5.60); RDW 16.2 % (11.9-15.9); WHITE BLOOD COUNT 4.9 K/mm3 (4.0-10.0)
[2023-01-23] MEDS: PANTOPRAZOLE SODIUM 40 MG VIAL IVPUSH SCH (09:21)
[2023-01-23] MEDS: ASPIRIN 81 MG CHEWABLE TABLETS PO SCH (09:22)
[2023-01-23] MEDS: HEPARIN NA (PORCINE) 5,000 UNITS/ML 1ML VIAL SQ SCH ×2 (09:22→21:22)
[2023-01-23] MEDS: LOSARTAN POTASSIUM 50 MG TABLET PO SCH (09:22)
[2023-01-23] MEDS: FOLIC ACID 1 MG TABLET (FP) PO SCH (09:22)
[2023-01-23] MEDS: MULTIVITAMINS (DAILY MVI) TABLET (FP) PO SCH ×3 (09:22→15:11)
[2023-01-23] MEDS: amLODIPine BESYLATE 10 MG TABLET (FP) PO SCH (09:22)
[2023-01-23] MEDS: METOPROLOL TARTRATE 50 MG TABLET (FP) PO SCH ×2 (09:22→21:23)
[2023-01-23] MEDS: THIAMINE HCL 100 MG TABLET (FP) PO SCH (09:22)
[2023-01-23] MEDS: IBUPROFEN 800 MG/8 ML IJ IVPB PRN (09:27)
[2023-01-23] MEDS: NIFEdipine E.R 60 MG TABLET PO SCH (09:45)
[2023-01-23 10:10] LABS: POTASSIUM 3.5 mmol/L (3.5-5.1)
[2023-01-23 10:27] LABS: ALBUMIN 3.8 g/dl (3.4-5.0); BLOOD UREA NITROGEN 7.5 mg/dL (7-18)
[2023-01-23 10:28] LABS: BILIRUBIN,TOTAL 1.2 mg/dL (0.2-1); TOT PROT 7.6 g/dl (6.4-8.2)
[2023-01-23 10:29] LABS: CALCIUM 9.6 mg/dL (8.5-10.1)
[2023-01-23 10:30] LABS: CREATININE 1.3 mg/dL (0.55-1.3)
[2023-01-23] MEDS ORDERED: KETOROLAC TROMETHAMINE 15 MG/ML VIAL IVPUSH PRN (11:33)
[2023-01-23] MEDS ORDERED: KETOROLAC TROMETHAMINE 30 MG/1 ML VIAL IVPUSH PRN (11:34)
[2023-01-23] MEDS ORDERED: LOSARTAN POTASSIUM 50 MG TABLET PO ONE (12:00)
[2023-01-24] MEDS: hydrALAZINE HCL 50 MG TABLET (FP) PO SCH ×3 (05:21→21:58)
[2023-01-24] MEDS: LIPASE/PROTEASE/AMYLASE 36,000 UNIT CAPSULE PO SCH ×3 (08:37→17:41)
[2023-01-24] MEDS: LACTATED RINGERS SOLUTION 1,000 ML IV SCH (08:39)
[2023-01-24 09:09] LABS: BASO % 0.3 % (0-2.0); EOS % 2.1 % (0-4.5); HEMATOCRIT 36.7 % (35.4-49); HEMOGLOBIN 12.4 GM/dL (11.7-16.9); MCH 29.7 pg (25.7-33.7); MCHC 33.8 g/dl (32.0-35.9); MEAN CELL VOLUME 87.8 fl (80-96); MEAN PLT VOLUME 8.8 fl (7.5-11.1); MONO % 9.4 % (3.8-10.2); NEUT % 38.2 % (42.8-82.8); PLATELET COUNT 202 10^3/uL (134-434); RBC 4.19 M/mm3 (4.00-5.60); WHITE BLOOD COUNT 3.8 K/mm3 (4.0-10.0)
[2023-01-24 09:27] LABS: POTASSIUM 3.7 mmol/L (3.5-5.1)
[2023-01-24 09:36] LABS: CREATININE 1.2 mg/dL (0.55-1.3)
[2023-01-24 09:37] LABS: TOT PROT 6.9 g/dl (6.4-8.2)
[2023-01-24 09:43] LABS: ALBUMIN 3.4 g/dl (3.4-5.0); BLOOD UREA NITROGEN 8.5 mg/dL (7-18)
[2023-01-24] MEDS: MULTIVITAMINS (DAILY MVI) TABLET (FP) PO SCH (10:28)
[2023-01-24] MEDS: FOLIC ACID 1 MG TABLET (FP) PO SCH (10:28)
[2023-01-24] MEDS: METOPROLOL TARTRATE 50 MG TABLET (FP) PO SCH ×2 (10:28→21:58)
[2023-01-24] MEDS: HEPARIN NA (PORCINE) 5,000 UNITS/ML 1ML VIAL SQ SCH ×3 (10:28→21:59)
[2023-01-24] MEDS: THIAMINE HCL 100 MG TABLET (FP) PO SCH (10:28)
[2023-01-24] MEDS: PANTOPRAZOLE SODIUM 40 MG VIAL IVPUSH SCH (10:28)
[2023-01-24] MEDS: LOSARTAN POTASSIUM 50 MG TABLET PO SCH (10:28)
[2023-01-24] MEDS: ASPIRIN 81 MG CHEWABLE TABLETS PO SCH (10:28)
[2023-01-24] MEDS: amLODIPine BESYLATE 10 MG TABLET (FP) PO SCH (10:28)
[2023-01-25] MEDS: LACTATED RINGERS SOLUTION 1,000 ML IV SCH (06:36)
[2023-01-25] MEDS: hydrALAZINE HCL 50 MG TABLET (FP) PO SCH (06:36)
[2023-01-25] MEDS: LIPASE/PROTEASE/AMYLASE 36,000 UNIT CAPSULE PO SCH ×2 (08:25→12:39)
[2023-01-25] MEDS: ASPIRIN 81 MG CHEWABLE TABLETS PO SCH (10:11)
[2023-01-25] MEDS: amLODIPine BESYLATE 10 MG TABLET (FP) PO SCH (10:11)
[2023-01-25] MEDS: FOLIC ACID 1 MG TABLET (FP) PO SCH (10:12)
[2023-01-25] MEDS: METOPROLOL TARTRATE 50 MG TABLET (FP) PO SCH (10:12)
[2023-01-25] MEDS: LOSARTAN POTASSIUM 50 MG TABLET PO SCH (10:12)
[2023-01-25] MEDS: HEPARIN NA (PORCINE) 5,000 UNITS/ML 1ML VIAL SQ SCH ×2 (10:12→10:27)
[2023-01-25] MEDS: MULTIVITAMINS (DAILY MVI) TABLET (FP) PO SCH (10:15)
[2023-01-25] MEDS: THIAMINE HCL 100 MG TABLET (FP) PO SCH (10:16)
[2023-01-25] MEDS: PANTOPRAZOLE SODIUM 40 MG VIAL IVPUSH SCH (10:16)
[2023-01-25 11:40] VITALS: BP 125/79; PULSE 99; RESP 16; TEMP 98.2
== END 2023-01-25 13:41 | disposition home or self-care (01) ==
LOC: JER 01:52 → JERBED 03:06 → J5S 08:35
PROVIDERS: ADMIT Internal Medicine; ATTEND Internal Medicine
PROC: 3E033NZ Introduction of Analgesics, Hypnotics, Sedatives into Peripheral Vein, Percutaneous Approach (ICD-10-PCS; principal; 2023-01-21)
PROC: 3E033GC Introduction of Other Therapeutic Substance into Peripheral Vein, Percutaneous Approach (ICD-10-PCS; 2023-01-21)
PROC: 3E0333Z Introduction of Anti-inflammatory into Peripheral Vein, Percutaneous Approach (ICD-10-PCS; 2023-01-21)
PROC: 3E0337Z Introduction of Electrolytic and Water Balance Substance into Peripheral Vein, Percutaneous Approach (ICD-10-PCS; 2023-01-21)
DX: K85.90 Acute pancreatitis without necrosis or infection, unspecified (principal); I48.91 Unspecified atrial fibrillation; I10 Essential (primary) hypertension; K86.0 Alcohol-induced chronic pancreatitis; F10.99 Alcohol use, unspecified with unspecified alcohol-induced disorder; Z86.19 Personal history of other infectious and parasitic diseases; G89.29 Other chronic pain; M54.50 Low back pain, unspecified; R10.9 Unspecified abdominal pain; F10.90 Alcohol use, unspecified, uncomplicated
CPT/HCPCS: 36415; 80048; 80053; 83690; 83735; 85025; 99285-25; G0378; J1644

== ENCOUNTER 2023-06-12 17:40 | Inpatient (IN) | payer BC ==
[2023-06-12] MEDS ORDERED: LIDOCAINE VISCOUS 2% ORAL/TOP 15 ML UNIT-DOSE CUP ONE (18:38)
[2023-06-12] MEDS ORDERED: ACETAMINOPHEN INJECTION 100 ML IVPB ONE (18:38)
[2023-06-12] MEDS ORDERED: ONDANSETRON 4 MG/2 ML VIAL ONE (18:39)
[2023-06-12] MEDS ORDERED: MAG HYDROX/AL HYDROX/SIMETH 30 ML UNIT-DOSE CUP ONE (18:39)
[2023-06-12] MEDS ORDERED: FAMOTIDINE 20 MG/50 ML IVPB 20 MG/50 ML MG IVPB ONE (18:39)
[2023-06-12 18:45] LABS: VENOUS BASE EXCESS -9.7 mmol/L (-2-2); VENOUS O2 SATURATION 87.6 % (70-80); VENOUS PCO2 29.2 mmHg (38-52); VENOUS PH 7.319 (7.310-7.410)
[2023-06-12] MEDS: SODIUM CHLORIDE 0.9% 500 ML INFUS.BAG IV ONE ×2 (18:48→20:10)
[2023-06-12 18:49] LABS: BASO % 0.5 % (0-2.0); EOS % 0.1 % (0-4.5); HEMATOCRIT 45.5 % (35.4-49); HEMOGLOBIN 15.3 GM/dL (11.7-16.9); LYMPH % 23.9 % (8-40); MCH 28.7 pg (25.7-33.7); MCHC 33.5 g/dl (32.0-35.9); MEAN CELL VOLUME 85.6 fl (80-96); MEAN PLT VOLUME 8.4 fl (7.5-11.1); MONO % 3.8 % (3.8-10.2); NEUT % 71.7 % (42.8-82.8); PLATELET COUNT 252 10^3/uL (134-434); RBC 5.32 M/mm3 (4.00-5.60); RDW 17.7 % (11.9-15.9); WHITE BLOOD COUNT 4.9 K/mm3 (4.0-10.0)
[2023-06-12] MEDS: FAMOTIDINE 20 MG/50 ML IVPB 20 MG/50 ML MG IVPB ONE (18:49)
[2023-06-12] MEDS: ACETAMINOPHEN 1000 MG/100 ML BAG IVPB ONE (18:49)
[2023-06-12] MEDS: LIDOCAINE VISCOUS 2% ORAL/TOP 15 ML UNIT-DOSE CUP MM ONE (18:50)
[2023-06-12] MEDS: ONDANSETRON 4 MG/2 ML VIAL IVPUSH ONE (18:50)
[2023-06-12] MEDS: MAG HYDROX/AL HYDROX/SIMETH 30 ML UNIT-DOSE CUP PO ONE (18:50)
[2023-06-12] MEDS: morphine CARPU-JECT 2 MG/1 ML DISP.SYRIN IVPUSH ONE (18:51)
[2023-06-12 19:01] LABS: INR 1.03 (0.83-1.09); PROTHROMBIN TIME (PATIENT) 11.9 SEC (9.7-13.0)
[2023-06-12 19:04] LABS: ACTIVATED PTT 24.6 SECONDS (25.2-36.5)
[2023-06-12 19:27] LABS: LACTIC ACID 12.1 mmol/L (0.4-2.0)
[2023-06-12] MEDS ORDERED: morphine SULFATE 4 MG/ML VIAL ONE (19:49)
[2023-06-12] MEDS: LACTATED RINGERS SOLUTION 1000 ML INFUS.BAG IV ONE (20:10)
[2023-06-12] MEDS: morphine CARPU-JECT 4 MG/1 ML DISP.SYRIN IVPUSH ONE (20:10)
[2023-06-12 20:29] LABS: POTASSIUM 4.3 mmol/L (3.5-5.1)
[2023-06-12 20:32] LABS: ALBUMIN 4.1 g/dl (3.4-5.0); BLOOD UREA NITROGEN 15.9 mg/dL (7-18)
[2023-06-12 20:36] LABS: BILIRUBIN,TOTAL 0.8 mg/dL (0.2-1)
[2023-06-12 20:37] LABS: TOT PROT 8.4 g/dl (6.4-8.2)
[2023-06-12 22:06] LABS: EPI CELLS 1 /uL (0-25.1); HYALINE CASTS 0 /uL (0-3.1); URINE APPEARANCE CLEAR; URINE BACTERIA 14 /uL (0-1359); URINE BILIRUBIN NEGATIVE (NEGATIVE); URINE COLOR YELLOW; URINE GLUCOSE (UA) NEGATIVE (NEGATIVE); URINE KETONE 3+ (NEGATIVE); URINE LEUK ESTERASE NEGATIVE (NEGATIVE); URINE NITRITE NEGATIVE (NEGATIVE); URINE PROTEIN 1+ (NEGATIVE); URINE RBC 10 /uL (0-23.9); URINE UROBILINOGEN 0.2 mg/dL (0.2-1.0); URINE WBC 2 /uL (0-25.8)
[2023-06-12 23:10] LABS: LACTIC ACID 10.6 mmol/L (0.4-2.0)
[2023-06-12] MEDS ORDERED: SUCRALFATE 1 GM TABLET (FP) ONE (23:10)
[2023-06-12] MEDS: SUCRALFATE 1 GM TABLET (FP) PO ONE (23:50)
[2023-06-13 01:17] LABS: URINE BARBITURATES NEGATIVE (NEGATIVE)
[2023-06-13 01:18] LABS: COCAINE, UR NEGATIVE (NEGATIVE); METHADONE, UR NEGATIVE (NEGATIVE); URINE AMPHETAMINES NEGATIVE (NEGATIVE); URINE BENZODIAZEPINES NEGATIVE (NEGATIVE)
[2023-06-13] MEDS ORDERED: morphine SULFATE 4 MG/ML VIAL ONE (01:19)
[2023-06-13 01:31] LABS: OPIATES, URI POSITIVE (NEGATIVE); PHENCYCLIDINE,URINE NEGATIVE (NEGATIVE)
[2023-06-13] MEDS: DEXTROSE 5%-0.45% SALINE 1,000 ML IV SCH (01:33)
[2023-06-13] MEDS: morphine SULFATE 4 MG/ML VIAL IVPUSH ONE ×3 (01:33→20:36)
[2023-06-13 01:40] VITALS: BMI 30.9
[2023-06-13] MEDS: METOPROLOL TARTRATE 50 MG TABLET (FP) PO ONE (06:13)
[2023-06-13 07:42] LABS: CHLORIDE 102 mmol/L (98-107); POTASSIUM 4.5 mmol/L (3.5-5.1); SODIUM 136 mmol/L (136-145)
[2023-06-13 07:42] LABS: BASO % 0.1 % (0-2.0); HEMATOCRIT 41.8 % (35.4-49); HEMOGLOBIN 14.4 GM/dL (11.7-16.9); LYMPH % 21.1 % (8-40); MCH 29.5 pg (25.7-33.7); MCHC 34.4 g/dl (32.0-35.9); MEAN CELL VOLUME 85.6 fl (80-96); MONO % 9.9 % (3.8-10.2); NEUT % 68.9 % (42.8-82.8); PLATELET COUNT 203 10^3/uL (134-434); RBC 4.88 M/mm3 (4.00-5.60); RDW 17.7 % (11.9-15.9); WHITE BLOOD COUNT 7.5 K/mm3 (4.0-10.0)
[2023-06-13 07:45] LABS: CALCIUM 9.1 mg/dL (8.5-10.1)
[2023-06-13 07:46] LABS: ALBUMIN 4.1 g/dl (3.4-5.0); ANION GAP 13 mmol/L (4-13); BLOOD UREA NITROGEN 11.3 mg/dL (7-18); CO2 21 mmol/L (21-32); GLUCOSE,RANDOM 102 mg/dL (74-106)
[2023-06-13 07:49] LABS: CREATININE 0.9 mg/dL (0.55-1.3); SGOT/AST 60 U/L (15-37); SGPT/ALT 41 U/L (13-61)
[2023-06-13 07:50] LABS: BILIRUBIN,TOTAL 1.7 mg/dL (0.2-1)
[2023-06-13 07:51] LABS: TOT PROT 8.4 g/dl (6.4-8.2)
[2023-06-13 07:52] LABS: ALK PHOS 77 U/L (45-117)
[2023-06-13] MEDS: THIAMINE HCL 100 MG TABLET (FP) PO SCH (09:31)
[2023-06-13] MEDS: LOSARTAN POTASSIUM 50 MG TABLET PO SCH (09:31)
[2023-06-13] MEDS: MULTIVITAMINS (DAILY MVI) TABLET (FP) PO SCH (09:31)
[2023-06-13] MEDS: FOLIC ACID 1 MG TABLET (FP) PO SCH (09:31)
[2023-06-13] MEDS: amLODIPine BESYLATE 10 MG TABLET (FP) PO SCH (09:31)
[2023-06-13] MEDS: MAGNESIUM OXIDE 400 MG TABLET (FP) PO SCH (09:31)
[2023-06-13] MEDS: ENOXAPARIN NA (PORCINE) 40 MG/0.4 ML DISP.SYRIN SQ SCH (09:33)
[2023-06-13] MEDS: LIPASE/PROTEASE/AMYLASE 36,000 UNIT CAPSULE PO SCH (09:43)
[2023-06-13] MEDS: hydrALAZINE HCL 50 MG TABLET (FP) PO SCH (10:44)
[2023-06-13] MEDS: ASPIRIN 81 MG CHEWABLE TABLETS PO SCH (10:44)
[2023-06-13] MEDS: ACETAMINOPHEN 1000 MG/100 ML BAG IVPB PRN (13:57)
[2023-06-13] MEDS: METOPROLOL TARTRATE 50 MG TABLET (FP) PO SCH (21:26)
[2023-06-13] MEDS ORDERED: SUCRALFATE 1 GM TABLET (FP) PO ONE (23:04)
[2023-06-14] MEDS: traMADol HCL 50 MG TABLET PO ONE (05:41)
[2023-06-14 06:52] LABS: BASO % 0.4 % (0-2.0); EOS % 0.2 % (0-4.5); HEMATOCRIT 42.7 % (35.4-49); HEMOGLOBIN 14.2 GM/dL (11.7-16.9); LYMPH % 30.4 % (8-40); MCH 28.5 pg (25.7-33.7); MCHC 33.1 g/dl (32.0-35.9); MEAN CELL VOLUME 86.1 fl (80-96); MEAN PLT VOLUME 9.2 fl (7.5-11.1); MONO % 7.4 % (3.8-10.2); NEUT % 61.6 % (42.8-82.8); PLATELET COUNT 166 10^3/uL (134-434); RBC 4.96 M/mm3 (4.00-5.60); RDW 17.3 % (11.9-15.9); WHITE BLOOD COUNT 5.2 K/mm3 (4.0-10.0)
[2023-06-14 07:33] LABS: POTASSIUM 3.5 mmol/L (3.5-5.1)
[2023-06-14 07:36] LABS: CALCIUM 8.9 mg/dL (8.5-10.1)
[2023-06-14 07:37] LABS: ALBUMIN 3.6 g/dl (3.4-5.0); BLOOD UREA NITROGEN 6.9 mg/dL (7-18)
[2023-06-14 07:40] LABS: CREATININE 0.8 mg/dL (0.55-1.3)
[2023-06-14 07:41] LABS: BILIRUBIN,TOTAL 1.9 mg/dL (0.2-1); TOT PROT 7.6 g/dl (6.4-8.2)
[2023-06-14] MEDS ORDERED: ACETAMINOPHEN 1000 MG/100 ML BAG IVPB PRN (10:39)
[2023-06-14] MEDS: IBUPROFEN 800 MG/8 ML IJ IVPB PRN (13:34)
[2023-06-14] MEDS: hydrALAZINE HCL 25 MG TABLET (FP) PO SCH (22:53)
[2023-06-14] MEDS: MAG HYDROX/AL HYDROX/SIMETH 30 ML UNIT-DOSE CUP PO ONE (23:47)
[2023-06-15 07:37] VITALS: RESP 20
[2023-06-15] MEDS ORDERED: hydrALAZINE HCL 25 MG TABLET (FP) PO ONE (10:41)
[2023-06-15] MEDS ORDERED: METOPROLOL TARTRATE 50 MG TABLET (FP) PO ONE (10:41)
[2023-06-15 13:45] VITALS: BP 130/86; PULSE 93; TEMP 98.4
== END 2023-06-15 14:15 | disposition home or self-care (01) | DRG 439 ==
LOC: JER 17:40 → JERBED 23:34 → J4W 06-13 01:26
PROVIDERS: ADMIT Internal Medicine; ATTEND Internal Medicine
DX: K85.20 Alcohol induced acute pancreatitis without necrosis or infection (principal); E87.20 Acidosis, unspecified; K86.0 Alcohol-induced chronic pancreatitis; I10 Essential (primary) hypertension; R11.2 Nausea with vomiting, unspecified
CPT/HCPCS: 0241U-QW; 36415; 71045-TC-FY; 74174-TC; 80053; 80307; 81003; 82010; 82803; 82962; 83605; 83690; 84484; 85025; 85610; 85730; 86850; 86900; 86901; 87040; 87086; 93005; 93010; 99285-25; J0131; Q9967

== ENCOUNTER 2023-06-26 21:00 | Inpatient (IN) | payer BC ==
[2023-06-26] MEDS ORDERED: ACETAMINOPHEN INJECTION 100 ML IVPB ONE (22:04)
[2023-06-26] MEDS ORDERED: ONDANSETRON 4 MG/2 ML VIAL ONE (22:05)
[2023-06-26] MEDS ORDERED: FAMOTIDINE 20 MG/50 ML IVPB 20 MG/50 ML MG IVPB ONE (22:05)
[2023-06-26] MEDS ORDERED: MAG HYDROX/AL HYDROX/SIMETH 30 ML UNIT-DOSE CUP ONE (22:05)
[2023-06-26] MEDS: ACETAMINOPHEN 1000 MG/100 ML BAG IVPB ONE (22:48)
[2023-06-26] MEDS: MAG HYDROX/AL HYDROX/SIMETH -MYLANTA- ORAL SUSPENSION PO ONE (22:48)
[2023-06-26] MEDS: FAMOTIDINE 20 MG/50 ML IVPB 20 MG/50 ML MG IVPB ONE (22:48)
[2023-06-26] MEDS: SODIUM CHLORIDE 1,000 ML IV STA (22:49)
[2023-06-26] MEDS: ONDANSETRON 4 MG/2 ML VIAL IVPUSH PRN (22:49)
[2023-06-26 22:51] LABS: VENOUS BASE EXCESS -2.6 mmol/L (-2-2); VENOUS O2 SATURATION 35.6 % (70-80); VENOUS PCO2 38.4 mmHg (38-52); VENOUS PH 7.379 (7.310-7.410)
[2023-06-26 22:53] LABS: BASO % 0.4 % (0-2.0); EOS % 0.1 % (0-4.5); HEMATOCRIT 39.3 % (35.4-49); HEMOGLOBIN 13.1 GM/dL (11.7-16.9); LYMPH % 11.1 % (8-40); MCH 29.3 pg (25.7-33.7); MCHC 33.4 g/dl (32.0-35.9); MEAN CELL VOLUME 87.6 fl (80-96); MEAN PLT VOLUME 8.1 fl (7.5-11.1); MONO % 4.5 % (3.8-10.2); NEUT % 83.9 % (42.8-82.8); PLATELET COUNT 349 10^3/uL (134-434); RBC 4.49 M/mm3 (4.00-5.60); WHITE BLOOD COUNT 8.3 K/mm3 (4.0-10.0)
[2023-06-26] MEDS ORDERED: morphine SULFATE 4 MG/ML VIAL ONE (22:53)
[2023-06-26] MEDS: morphine CARPU-JECT 4 MG/1 ML DISP.SYRIN IVPUSH ONE (23:00)
[2023-06-26 23:11] LABS: POTASSIUM 3.8 mmol/L (3.5-5.1)
[2023-06-26 23:13] LABS: ALBUMIN 4.3 g/dl (3.4-5.0); BLOOD UREA NITROGEN 11.3 mg/dL (7-18)
[2023-06-26 23:16] LABS: CREATININE 1.2 mg/dL (0.55-1.3)
[2023-06-26 23:18] LABS: BILIRUBIN,TOTAL 0.9 mg/dL (0.2-1); TOT PROT 8.5 g/dl (6.4-8.2)
[2023-06-26 23:23] LABS: CALCIUM 10.4 mg/dL (8.5-10.1); LACTIC ACID 2.5 mmol/L (0.4-2.0)
[2023-06-27] MEDS: LACTATED RINGERS SOLUTION 1000 ML INFUS.BAG IV ONE ×2 (00:34→02:20)
[2023-06-27] MEDS ORDERED: morphine SULFATE 4 MG/ML VIAL ONE (02:14)
[2023-06-27] MEDS: morphine CARPU-JECT 4 MG/1 ML DISP.SYRIN IVPUSH ONE (02:19)
[2023-06-27] MEDS: PIPERACILLIN/TAZOB 3.375 GM 3.375 GM in DEXTROSE 5%-WATER - 50 ML IVPB ONE (02:30)
[2023-06-27] MEDS ORDERED: PIPERACILLIN/TAZOB 3.375 GM 3.375 GM/50 ML BAG IVPB ONE (02:36)
[2023-06-27] MEDS: LACTATED RINGERS SOLUTION 1,000 ML IV SCH (03:44)
[2023-06-27] MEDS: ACETAMINOPHEN 1000 MG/100 ML BAG IVPB ONE (05:51)
[2023-06-27 08:51] LABS: BASO % 0.4 % (0-2.0); EOS % 0.4 % (0-4.5); HEMATOCRIT 38.6 % (35.4-49); HEMOGLOBIN 13.3 GM/dL (11.7-16.9); LYMPH % 14.4 % (8-40); MCHC 34.5 g/dl (32.0-35.9); MEAN CELL VOLUME 86.8 fl (80-96); MEAN PLT VOLUME 8.3 fl (7.5-11.1); MONO % 3.2 % (3.8-10.2); NEUT % 81.6 % (42.8-82.8); PLATELET COUNT 338 10^3/uL (134-434); RBC 4.45 M/mm3 (4.00-5.60); RDW 16.3 % (11.9-15.9); WHITE BLOOD COUNT 7.2 K/mm3 (4.0-10.0)
[2023-06-27 09:03] LABS: POTASSIUM 3.6 mmol/L (3.5-5.1)
[2023-06-27 09:08] LABS: CALCIUM 9.6 mg/dL (8.5-10.1)
[2023-06-27 09:09] LABS: BLOOD UREA NITROGEN 5.8 mg/dL (7-18)
[2023-06-27] MEDS: morphine SULFATE 4 MG/ML VIAL IVPUSH PRN (09:51)
[2023-06-27] MEDS: hydrALAZINE HCL 25 MG TABLET (FP) PO SCH (09:52)
[2023-06-27] MEDS: LOSARTAN POTASSIUM 50 MG TABLET PO SCH (09:52)
[2023-06-27] MEDS: amLODIPine BESYLATE 10 MG TABLET (FP) PO SCH (09:52)
[2023-06-27] MEDS: METOPROLOL TARTRATE 50 MG TABLET (FP) PO SCH (09:52)
[2023-06-27 15:25] VITALS: RESP 18
[2023-06-28 08:53] LABS: BASO % 0.5 % (0-2.0); EOS % 1.2 % (0-4.5); HEMATOCRIT 37.5 % (35.4-49); HEMOGLOBIN 12.7 GM/dL (11.7-16.9); MCH 29.5 pg (25.7-33.7); MEAN CELL VOLUME 86.9 fl (80-96); MEAN PLT VOLUME 8.2 fl (7.5-11.1); MONO % 6.1 % (3.8-10.2); NEUT % 66.2 % (42.8-82.8); PLATELET COUNT 330 10^3/uL (134-434); RBC 4.31 M/mm3 (4.00-5.60); RDW 16.2 % (11.9-15.9); WHITE BLOOD COUNT 4.6 K/mm3 (4.0-10.0)
[2023-06-28 09:23] LABS: BLOOD UREA NITROGEN 6.2 mg/dL (7-18)
[2023-06-28 09:25] LABS: CREATININE 0.9 mg/dL (0.55-1.3)
[2023-06-28 09:27] LABS: BILIRUBIN,TOTAL 0.7 mg/dL (0.2-1); TOT PROT 7.1 g/dl (6.4-8.2)
[2023-06-28 09:29] LABS: ALBUMIN 3.4 g/dl (3.4-5.0)
[2023-06-28] MEDS ORDERED: ACETAMINOPHEN 325 MG TABLET (FP) PO PRN (09:43)
[2023-06-28 15:12] VITALS: BMI 32.4
[2023-06-29 07:52] LABS: POTASSIUM 3.9 mmol/L (3.5-5.1)
[2023-06-29 07:54] LABS: CALCIUM 9.2 mg/dL (8.5-10.1)
[2023-06-29 07:55] LABS: ALBUMIN 3.2 g/dl (3.4-5.0); BLOOD UREA NITROGEN 6.8 mg/dL (7-18)
[2023-06-29 07:59] LABS: BILIRUBIN,TOTAL 0.7 mg/dL (0.2-1)
[2023-06-29 08:00] LABS: TOT PROT 6.5 g/dl (6.4-8.2)
[2023-06-29 14:23] VITALS: BP 109/62; PULSE 77; TEMP 98.7
== END 2023-06-29 16:13 | disposition home or self-care (01) | DRG 440 ==
LOC: JER 21:00 → JERBED 06-27 02:19 → J5S 06-27 04:38
PROVIDERS: ADMIT Internal Medicine; ATTEND Internal Medicine
DX: K85.90 Acute pancreatitis without necrosis or infection, unspecified (principal); I10 Essential (primary) hypertension; R10.9 Unspecified abdominal pain; K86.1 Other chronic pancreatitis; R74.8 Abnormal levels of other serum enzymes
CPT/HCPCS: 36415; 74177-TC; 80048; 80053; 82010; 82803; 83605; 83690; 85025; 99285-25; J0131; Q9967

== ENCOUNTER 2023-08-29 04:39 | Day surgery (SDC) | payer BC ==
[2023-08-25 13:49] VITALS: BMI 31.4
[2023-08-29 10:42] VITALS: TEMP 98
[2023-08-29 10:48] VITALS: BP 115/67; PULSE 68; RESP 17
== END 2023-08-29 10:45 | disposition home or self-care (01) ==
LOC: JASU-ENDO 04:39
PROVIDERS: ATTEND Student in an Organized Health Care Education/Training Program
PROC: 0DB78ZX Excision of Stomach, Pylorus, Via Natural or Artificial Opening Endoscopic, Diagnostic (ICD-10-PCS; 2023-08-29)
PROC: 0DB68ZX Excision of Stomach, Via Natural or Artificial Opening Endoscopic, Diagnostic (ICD-10-PCS; principal; 2023-08-29 09:00)
DX: K29.50 Unspecified chronic gastritis without bleeding (principal); B96.81 Helicobacter pylori [H. pylori] as the cause of diseases classified elsewhere
CPT/HCPCS: 88305-TC; 88341-TC; 88342-TC

== ENCOUNTER → 2023-11-13 | Emergency (ER) | payer BC, OTHER ==
[2023-11-13 09:03] VITALS: BP 122/78; PULSE 107; RESP 16; TEMP 98.2; BMI 31.4
[2023-11-13] MEDS: LACTATED RINGERS SOLUTION 1000 ML INFUS.BAG IV ONE (09:45)
[2023-11-13] MEDS: MAG HYDROX/AL HYDROX/SIMETH 30 ML UNIT-DOSE CUP PO ONE (09:46)
[2023-11-13] MEDS: FAMOTIDINE 20 MG/50 ML IVPB 20 MG/50 ML MG IVPB ONE (09:46)
[2023-11-13] MEDS: ACETAMINOPHEN 1000 MG/100 ML BAG IVPB ONE (09:46)
[2023-11-13] MEDS: ONDANSETRON 4 MG/2 ML VIAL IVPUSH ONE (09:46)
[2023-11-13 10:05] LABS: BASO % 0.2 % (0-2.0); HEMATOCRIT 48.3 % (35.4-49); HEMOGLOBIN 16.4 GM/dL (11.7-16.9); LYMPH % 35.9 % (8-40); MCH 28.3 pg (25.7-33.7); MCHC 33.9 g/dl (32.0-35.9); MEAN CELL VOLUME 83.6 fl (80-96); MEAN PLT VOLUME 8.4 fl (7.5-11.1); NEUT % 59.9 % (42.8-82.8); PLATELET COUNT 367 10^3/uL (134-434); RBC 5.77 M/mm3 (4.00-5.60); RDW 15.1 % (11.9-15.9); WHITE BLOOD COUNT 9.4 K/mm3 (4.0-10.0)
[2023-11-13 10:13] LABS: INR 0.96 (0.83-1.09)
[2023-11-13 10:21] LABS: POTASSIUM 4.2 mmol/L (3.5-5.1)
[2023-11-13 10:24] LABS: ALBUMIN 4.1 g/dl (3.4-5.0); BLOOD UREA NITROGEN 15.9 mg/dL (7-18); CALCIUM 9.5 mg/dL (8.5-10.1)
[2023-11-13 10:28] LABS: CREATININE 1.2 mg/dL (0.55-1.3)
[2023-11-13 10:29] LABS: BILIRUBIN,TOTAL 1.1 mg/dL (0.2-1); TOT PROT 8.6 g/dl (6.4-8.2)
== END | disposition home or self-care (01) ==
LOC: JER 08:52
PROC: 3E033GC Introduction of Other Therapeutic Substance into Peripheral Vein, Percutaneous Approach (ICD-10-PCS; principal; 2023-11-13)
PROC: 3E033GC Introduction of Other Therapeutic Substance into Peripheral Vein, Percutaneous Approach (ICD-10-PCS; 2023-11-13)
PROC: 3E033NZ Introduction of Analgesics, Hypnotics, Sedatives into Peripheral Vein, Percutaneous Approach (ICD-10-PCS; 2023-11-13)
DX: R10.13 Epigastric pain (principal); K29.20 Alcoholic gastritis without bleeding; R11.10 Vomiting, unspecified; R10.32 Left lower quadrant pain
CPT/HCPCS: 36415; 71046-TC-FY; 74177-TC; 80053; 82962; 83690; 83735; 84484; 85025; 85610; 93005; 93010; 99285-25; J0131; Q9967

== ENCOUNTER 2023-11-29 00:31 | Emergency (ER) | payer BC ==
[2023-11-29 00:36] VITALS: BMI 29.8
[2023-11-29] MEDS ORDERED: ACETAMINOPHEN INJECTION 100 ML ONE ×2 (01:14→03:15)
[2023-11-29] MEDS ORDERED: ONDANSETRON 4 MG/2 ML VIAL ONE ×2 (01:14→03:15)
[2023-11-29] MEDS: ONDANSETRON 4 MG/2 ML VIAL IVPUSH ONE (03:10)
[2023-11-29] MEDS: ACETAMINOPHEN 1000 MG/100 ML BAG IVPB ONE (03:15)
[2023-11-29] MEDS: SODIUM CHLORIDE 0.9% 500 ML INFUS.BAG IV ONE (03:20)
[2023-11-29 03:50] LABS: POTASSIUM 3.6 mmol/L (3.5-5.1)
[2023-11-29 03:53] LABS: ALBUMIN 4.3 g/dl (3.4-5.0); BLOOD UREA NITROGEN 15.7 mg/dL (7-18); CALCIUM 9.6 mg/dL (8.5-10.1); MAGNESIUM 2.2 mg/dL (1.8-2.4)
[2023-11-29 03:56] LABS: CREATININE 1.1 mg/dL (0.55-1.3); PHOSPHOROUS 3.3 mg/dL (2.5-4.9)
[2023-11-29 03:57] LABS: BILIRUBIN,TOTAL 1.9 mg/dL (0.2-1)
[2023-11-29 03:58] LABS: TOT PROT 8.2 g/dl (6.4-8.2)
[2023-11-29 04:15] LABS: BASO % 0.4 % (0-2.0); EOS % 0.3 % (0-4.5); HEMATOCRIT 40.9 % (35.4-49); HEMOGLOBIN 14.2 GM/dL (11.7-16.9); LYMPH % 29.8 % (8-40); MCH 29.1 pg (25.7-33.7); MCHC 34.7 g/dl (32.0-35.9); MEAN CELL VOLUME 83.8 fl (80-96); MONO % 9.2 % (3.8-10.2); NEUT % 60.3 % (42.8-82.8); PLATELET COUNT 271 10^3/uL (134-434); RBC 4.88 M/mm3 (4.00-5.60); RDW 15.1 % (11.9-15.9); WHITE BLOOD COUNT 5.4 K/mm3 (4.0-10.0)
[2023-11-29] MEDS ORDERED: SIMETHICONE 80 MG TAB.CHEW (FP) ONE (04:45)
[2023-11-29] MEDS ORDERED: LIDOCAINE 5% TOPICAL PATCH ONE (04:48)
[2023-11-29] MEDS: SIMETHICONE 80 MG TAB.CHEW (FP) PO ONE (04:50)
[2023-11-29] MEDS: POLYETHYLENE GLYCOL (HEALTHYLAX) 3350 17 GM PACKET PO SCH (04:50)
[2023-11-29] MEDS: LIDOCAINE 5% TOPICAL PATCH TP ONE (04:52)
[2023-11-29 05:03] LABS: HIV INTERPRETATION NEGATIVE (NEGATIVE)
[2023-11-29] MEDS ORDERED: FAMOTIDINE 20 MG/50 ML IVPB 20 MG/50 ML MG IVPB ONE (05:14)
[2023-11-29] MEDS ORDERED: MAG HYDROX/AL HYDROX/SIMETH 30 ML UNIT-DOSE CUP ONE (05:14)
[2023-11-29] MEDS: MAG HYDROX/AL HYDROX/SIMETH -MYLANTA- ORAL SUSPENSION PO ONE (05:18)
[2023-11-29] MEDS: FAMOTIDINE 20 MG/50 ML IVPB 20 MG/50 ML MG IVPB ONE (05:18)
[2023-11-29] MEDS: POLYETHYLENE GLYCOL (HEALTHYLAX) 3350 17 GM PACKET PO ONE (05:26)
[2023-11-29 06:34] VITALS: BP 148/95; PULSE 68; RESP 16; TEMP 97.5
[2023-11-29] MEDS ORDERED: LACTULOSE 20 GM/30 ML UDC (FOR ORAL USE ONLY) ONE (07:10)
[2023-11-29] MEDS: LACTULOSE 20 GM/30 ML UDC (FOR ORAL USE ONLY) PO ONE (07:23)
[2023-11-29] MEDS ORDERED: LIDOCAINE PATCH REMOVAL MC ONE (17:00)
== END 2023-11-29 07:24 | disposition home or self-care (01) ==
LOC: JER 00:31
PROC: 3E033GC Introduction of Other Therapeutic Substance into Peripheral Vein, Percutaneous Approach (ICD-10-PCS; principal; 2023-11-29)
PROC: 3E033NZ Introduction of Analgesics, Hypnotics, Sedatives into Peripheral Vein, Percutaneous Approach (ICD-10-PCS; 2023-11-29)
PROC: 3E033GC Introduction of Other Therapeutic Substance into Peripheral Vein, Percutaneous Approach (ICD-10-PCS; 2023-11-29)
DX: K59.00 Constipation, unspecified (principal); R10.12 Left upper quadrant pain; R10.13 Epigastric pain
CPT/HCPCS: 36415; 74019-TC-FY; 80053; 83690; 83735; 84100; 85025; 86803; 87389; 93005; 93010; 99285-25; J0131